=== PATIENT | male | born 1960 | race African-American/Black ===

== ENCOUNTER → 2021-06-20 | Outpatient (CLI) | payer MEDICARE ==
--- NOTE | 2021-06-23 04:34 | MR ---
EXAMINATION TYPE: MR brain wo/w con DATE OF EXAM: 06/20/2021 COMPARISON: Outside MRI February 17, 2021. Outside brain CT February 22, 2021. HISTORY: Secondary malignant neoplasm of brain TECHNIQUE: Multiplanar, multisequence images of the brain and brainstem is performed without and with IV contras t, utilizing 7 mL intravenous Gadavist . FINDINGS: Diffusion weighted images demonstrate no evidence of a recent infarct or other diffusion ab normality. Right frontal craniotomy changes with 1.8 cm surgical resection cavity showing rim enhance ment axial image 58 is now present. There is adjacent mild to moderate curvilinear dural enhancement. There is old infarct inferior posterior to this involving the right frontal and parietal lobes exten ding into the superior temporal lobe with volume loss and increased T2 signal. Ventricles and sulci o verall more prominent from prior MRI. Occasional additional foci of T2 hyperintensity are now present . Midline structures demonstrate normal morphology. The craniocervical junction appears within normal limits. Post contrast images demonstrate no new enhancing masses. There is increased T1 and T2 signa l with incomplete filling of the draining right sagittal and transverse sinus consistent with partial dural venous thrombosis. The globes are intact bilaterally. Completely opacified right maxillary and frontal sinus are now present. IMPRESSION: 1. Successful surgical resection of the right frontal neoplasm. There is surgical resection cavity an d encephalomalacia right frontal parietal region extending into the superior temporal lobe after andres tment. 2. New right-sided dural venous thrombosis. 3. New right-sided paranasal sinus disease. 4. Mild diffuse cerebral atrophy and chronic small vessel ischemic change.
== END | disposition home or self-care (01) ==
LOC: RADMRIMAIN 14:51
PROVIDERS: ATTEND Radiology Radiation Oncology
DX: C79.31 Secondary malignant neoplasm of brain (principal); G93.89 Other specified disorders of brain; I67.82 Cerebral ischemia; G08 Intracranial and intraspinal phlebitis and thrombophlebitis
CPT/HCPCS: 70553; A9585

== ENCOUNTER 2021-11-25 09:35 | Inpatient (IN) | payer MEDICARE ==
[2021-11-25] MEDS ORDERED: KETOROLAC 15 MG/ML 1 ML VIAL IM STA (10:09)
[2021-11-25 10:57] LABS: Basophils % (A) 0 %; Eosinophils # (A) 0.1 k/uL (0-0.7); Eosinophils % (A) 1 %; HCT 54.2 % (39.0-53.0); HGB 17.3 gm/dL (13.0-17.5); Lymphocytes # (A) 0.7 k/uL (1.0-4.8); Lymphocytes % (A) 8 %; MCH 26.4 pg (25.0-35.0); MCV 82.3 fL (80.0-100.0); Mean Platelet Volume 7.6; Monocytes # (A) 0.3 k/uL (0-1.0); Monocytes % (A) 3 %; Neutrophils # (A) 7.8 k/uL (1.3-7.7); Neutrophils % (A) 87 %; Platelet Count 350 k/uL (150-450); RBC 6.58 m/uL (4.30-5.90); RDW 14.4 % (11.5-15.5)
--- NOTE | 2021-11-25 11:06 | ED ---
Fall HPI - General Chief Complaint: Fall Stated Complaint: fall, rt sided pain Time Seen by Provider: 11/25/21 10:00 Source: patient, family, RN notes reviewed Mode of arrival: wheelchair - History of Present Illness Initial Comments: This is a 61-year-old male who presents to the emergency department after a fall. Last night he tripped and fell, landing on his right side, which has caused pain to the lateral right shoulder and posterior aspect of the right shoulder. Denies hitting his head or any loss of consciousness. He did not have any dizziness, chest pain, or shortness of breath prior to the fall. He is currently being treated for colon cancer, prostate cancer, and brain cancer, with concern that there might be metastases to the lungs and spine. He also reports that over the last week, he has had progressive weakness and loss of feeling in his bilateral lower extremities. Denies any associated pain in the legs or spine. States that the leg weakness prompted the fall. He does live in an upstairs apartment by himself and is having a lot of difficulty caring for himself due to the leg weakness. 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 Fall Occurred: home Loss of Consciousness: none Symptoms Prior to Fall: none Location - Extremities: Right: Shoulder - Related Data Home Medications Medication Instructions Recorded Confirmed HYDROcodone/APAP 10-325MG [[place] 1 tab PO TID PRN 11/25/21 11/25/21 10-325] Ondansetron [Zofran] 8 mg PO Q8H PRN 11/25/21 11/25/21 Pravastatin Sodium [Pravachol] 80 mg PO DAILY 11/25/21 11/25/21 Prochlorperazine [Compazine] 10 mg PO Q6H PRN 11/25/21 11/25/21 RX: dexAMETHasone See Taper PO DIRECTED 11/25/21 11/25/21 Rivaroxaban [Xarelto] 20 mg PO DAILY@1400 11/25/21 11/25/21 amLODIPine BESYLATE/BENAZEPRIL 1 cap PO DAILY 11/25/21 11/25/21 [Lotrel 2.5-10 MG] traZODone HCL [Desyrel] 100 mg PO HS 11/25/21 11/25/21 Allergies Allergy/AdvReac Type Severity Reaction Status Date / Time No Known Allergies Allergy Verified 11/25/21 12:20 Review of Systems ROS Statement: Those systems with pertinent positive or pertinent negative responses have been documented in the HPI. ROS Other: All systems not noted in ROS Statement are negative. Constitutional: Denies: fever, chills ENT: Denies: ear pain, throat pain Respiratory: Denies: cough, dyspnea Cardiovascular: Denies: chest pain, palpitations Gastrointestinal: Denies: abdominal pain, nausea, vomiting, diarrhea Genitourinary: Denies: urgency, dysuria Musculoskeletal: Reports: other (right shoulder pain, bilateral leg weakness) Skin: Denies: rash Neurological: Denies: headache Past Medical History Past Medical History: Cancer, CVA/TIA, Hyperlipidemia, Hypertension, Prostate Disorder Additional Past Medical History / Comment(s): colon cancer, prostate cancer, brain cancer History of Any Multi-Drug Resistant Organisms: None Reported Past Surgical History: Bowel Resection Additional Past Surgical History / Comment(s): colon surgery, brain surgery Past Psychological History: No Psychological Hx Reported Smoking Status: Never smoker Past Alcohol Use History: None Reported Past Drug Use History: None Reported - Past Family History Father Family Medical History: Cancer Additional Family Medical History / Comment(s): Pancreatic cancer. Mother Additional Family Medical History / Comment(s): Mother was a heavy smokier and had breathing problems. General Exam Limitations: no limitations General appearance: alert, in no apparent distress Head exam: Present: atraumatic, normocephalic, normal inspection Respiratory exam: Present: normal lung sounds bilaterally. Absent: respiratory distress, wheezes, rales, rhonchi, stridor Cardiovascular Exam: Present: regular rate, normal rhythm, normal heart sounds. Absent: systolic murmur, diastolic murmur, rubs, gallop, clicks Right Shoulder Exam: Present: tenderness (laterally and posteriorly). Absent: swelling, abrasion, ecchymosis, deformity, crepitus Back exam: Present: normal inspection. Absent: tenderness Neurological exam: Present: alert, oriented X3, CN II-XII intact Psychiatric exam: Present: normal affect, normal mood Skin exam: Present: warm, dry, intact, normal color. Absent: rash Course Vital Signs 11/25/21 11/25/21 09:44 15:08 Temperature 97.9 F Pulse Rate 109 H 75 Respiratory 20 18 Rate Blood Pressure 117/84 125/80 O2 Sat by Pulse 98 98 Oximetry Medical Decision Making - Medical Decision Making This is a 61-year-old male who presents to the emergency department for right arm pain after a fall and bilateral leg weakness. X-ray of the arm revealed no acute bony abnormalities, however it did demonstrate [address] of the lumbar spine obtained given the leg weakness. This identified a significant amount of degenerative changes, however it did not identify any masses. It could not definitively rule out any spinal cord, cauda equina, or conus medull stu lesions. Patient expresses interest in jail placement for rehabilitation. Given that the patient cannot easily ambulate, he cannot care for himself, and lives alone, will plan to admit the patient for jail placement. I spoke with Dr. Singh, the patient's radiation oncologist. He said that the patient was supposed to see him on an outpatient basis today. He also states that he has a previously identified lesion in the t-spine, and states that this may be a contributing factor to his symptoms. He requested a computed tomography scan of the T-spine. Patient has already had contrast today, and this will be obtained without contrast in the meantime. This may be repeated with contrast as soon as tomorrow. This case was discussed in detail with the attending ED physician. Presentation, findings, and treatment plan discussed in detail as well. - Lab Data Result diagrams: 11/25/21 10:33 11/25/21 10:33 Lab Results 11/25/21 11/25/21 11/25/21 Range/Units 10:33 10:33 10:33 WBC 9.0 (3.8-10.6) k/uL RBC 6.58 H (4.30-5.90) m/uL Hgb 17.3 (13.0-17.5) gm/dL Hct 54.2 H (39.0-53.0) % MCV 82.3 (80.0-100.0) fL MCH 26.4 (25.0-35.0) pg MCHC 32.0 (31.0-37.0) g/dL RDW 14.4 (11.5-15.5) % Plt Count 350 (150-450) k/uL MPV 7.6 Neutrophils % 87 % Lymphocytes % 8 % Monocytes % 3 % Eosinophils % 1 % Basophils % 0 % Neutrophils # 7.8 H (1.3-7.7) k/uL Lymphocytes # 0.7 L (1.0-4.8) k/uL Monocytes # 0.3 (0-1.0) k/uL Eosinophils # 0.1 (0-0.7) k/uL Basophils # 0.0 (0-0.2) k/uL Sodium 140 (137-145) mmol/L Potassium 4.9 (3.5-5.1) mmol/L Chloride 104 (98-107) mmol/L Carbon Dioxide 26 (22-30) mmol/L Anion Gap 10 mmol/L BUN 20 (9-20) mg/dL Creatinine 1.21 (0.66-1.25) mg/dL Est GFR (CKD-EPI)AfAm 75 (>60 ml/min/1.73 sqM) Est GFR (CKD-EPI)NonAf 64 (>60 ml/min/1.73 sqM) Glucose 106 H (74-99) mg/dL Calcium 10.1 (8.4-10.2) mg/dL Total Bilirubin 0.8 (0.2-1.3) mg/dL AST 20 (17-59) U/L ALT 12 (4-49) U/L Alkaline Phosphatase 99 (38-126) U/L Total Protein 7.9 (6.3-8.2) g/dL Albumin 4.5 (3.5-5.0) g/dL Urine Color Yellow Urine Appearance Clear (Clear) Urine pH 5.5 (5.0-8.0) Ur Specific [place] >1.050 H (1.001-1.035) Urine Protein Negative (Negative) Urine Glucose (UA) Negative (Negative) Urine Ketones Trace H (Negative) Urine Blood Trace H (Negative) Urine Nitrite Negative (Negative) Urine Bilirubin Negative (Negative) Urine Urobilinogen 2.0 (<2.0) mg/dL Ur Leukocyte Esterase Negative (Negative) Urine RBC 2 (0-5) /hpf Urine WBC <1 (0-5) /hpf Urine Mucus Few H (None) /hpf - Radiology Data Radiology results: report reviewed, image reviewed Disposition Clinical Impression: Lower extremity weakness Disposition: ADMITTED IP TO THIS HOSP
--- NOTE | 2021-11-25 11:15 | XR ---
Right shoulder HISTORY: Trauma and pain 3 views the right shoulder Bone mineralization, joint spaces and alignment are maintained, some spurring present at the glenohum eral joint. There is a lung nodule in the right upper lobe measuring approximately 10 mm IMPRESSION: No fracture or dislocation. Indeterminate right upper lobe lung nodule, follow-up is earnest mmended on a nonemergent basis, report relayed to Dr. Aguilera at the time of interpretation.
[2021-11-25 11:18] LABS: Albumin 4.5 g/dL (3.5-5.0); Calcium 10.1 mg/dL (8.4-10.2); Potassium 4.9 mmol/L (3.5-5.1); Total Bilirubin 0.8 mg/dL (0.2-1.3); Total Protein 7.9 g/dL (6.3-8.2)
--- NOTE | 2021-11-25 11:32 | XR ---
Thoracic spine HISTORY: Trauma and pain 3 views of the thoracic spine No comparisons There is abnormal density in the left upper lobe. Abnormal attenuation also present along the right u pper lobe medially along the distribution of the first rib anteriorly. Loop recorder is present over the left heart. There is a slight spinal curvature. Thoracic vertebral bodies show preserved height a nd mineralization. Disc spaces are maintained, there is mild spondylosis. IMPRESSION: Possible left upper lobe atelectasis versus mass, indeterminate density along the anterio r first rib on the right. Consider chest CT. There is a slight spinal curvature. Report relayed to Reginaldo foote at the time of interpretation.
--- NOTE | 2021-11-25 12:45 | CT ---
EXAMINATION TYPE: CT lumbar spine w con DATE OF EXAM: 11/25/2021 COMPARISON: None available HISTORY: Progressive leg weakness, metastatic colon cancer. CT DLP: 568.3 mGycm Automated exposure control for dose reduction was used. CONTRAST: CT scan of the lumbar is performed with IV Contrast, patient injected with 100 mL of Isovue 300. Technique: Enhanced CT of the lumbar spine was performed. Bone and soft tissue window settings are s ubmitted as well as coronal and sagittal reconstructions. Findings: Preserved lumbar curvature. No significant anterolisthesis or retrolisthesis. No definite vertebral b refugio collapse or acute displaced fracture. No gross lytic or sclerotic bone lesion. Degenerative changes of the lumbar spine with multilevel opposing endplate osteophytosis and multilev el facet osteoarthropathy. Rather maintained intervertebral disc heights. L1-L2: Bilateral focal foraminal disc protrusions, causing no significant central spinal canal stenos is or significant neuroforaminal stenosis. L2-L3: Left focal foraminal and extraforaminal disc protrusion, causing no significant central spinal canal stenosis and mild left neuroforaminal stenosis. L3-L4: Diffuse posterior disc bulge, more inclined to the right side, causing moderate central spinal canal stenosis and moderate to severe bilateral neuroforaminal stenosis. L4-L5: Diffuse posterior disc bulge, causing mild central spinal canal stenosis, mild right and moder ate left neural foraminal stenosis. L5-S1: No significant disc disease, central spinal canal stenosis or neuroforaminal stenosis. Simple right renal cyst. Slightly prominent right renal collecting system. Hepatic lesions, not compl etely included in the scan. No paraspinal lesion. IMPRESSION: No definite lumbar vertebral fracture, gross lytic or sclerotic bone lesion. Multilevel lumbar DDD as detailed above, please correlate clinically. Spinal cord, cauda equina or conus medullaris lesion cannot be excluded by this CT scan. Further MRI assessment can be considered. Other incidental findings as described above.
[2021-11-25] MEDS ORDERED: ONDANSETRON 4 MG/2 ML VIAL IVP PRN (13:01)
[2021-11-25] MEDS ORDERED: LORazepam 0.5 MG TAB PO PRN (13:01)
[2021-11-25] MEDS ORDERED: KETOROLAC 15 MG/ML 1 ML VIAL IVP PRN (13:01)
[2021-11-25] MEDS ORDERED: NALOXONE 0.4 MG/ML 1 ML VIAL IV PRN (13:01)
[2021-11-25] MEDS ORDERED: ACETAMINOPHEN TAB 325 MG TAB PO PRN (13:01)
[2021-11-25] MEDS ORDERED: IBUPROFEN 600 MG TAB PO PRN (13:06)
[2021-11-25] MEDS ORDERED: RX INFO: IV CONTRAST WAS GIVEN 1 EACH MISC MISCELLANE PRN (15:22)
[2021-11-25 15:25] LABS: Appearance,Urine Clear (Clear); Bilirubin,Urine Negative (Negative); Blood,Urine Trace (Negative); Color,Urine Yellow; Glucose,Urine (UA) Negative (Negative); Ketones,Urine Trace (Negative); Leukocyte Esterase,Urine Negative (Negative); Mucus,Urine Few /hpf; Nitrite,Urine Negative (Negative); PH, Urine 5.5 (5.0-8.0); Protein,Urine Negative (Negative); RBC,Urine 2 /hpf (0-5); WBC,Urine <1 /hpf (0-5)
[2021-11-25 15:29] LABS: Specific Gravity,Urine >1.050 (1.001-1.035)
[2021-11-25] MEDS ORDERED: PROCHLORPERAZINE 10 MG TAB PO PRN (15:48)
--- NOTE | 2021-11-25 15:55 | CT ---
EXAMINATION TYPE: CT thoracic spine wo con DATE OF EXAM: 11/25/2021 COMPARISON: X-ray dated 11/25/2021 HISTORY: Bilateral leg weakness. CT DLP: 661.7 mGycm Automated exposure control for dose reduction was used. TECHNIQUE: Multiplanar CT scan of the thoracic spine without IV contrast administration. FINDINGS: Large soft tissue mass centered over the right side of T5 vertebra with bone destruction and extraoss eous soft tissue comportment, likely representing metastasis, measuring 4.1 x 5.4 cm. It causes bone destruction of the adjacent portion of the right fifth with obvious involvement of the spinal canal a t that level, likely causing severe spinal canal stenosis and thoracic spinal cord compression. There is complete destruction of the posterior aspect of the T5 vertebral body, right pedicle, right arturo a, right transverse process and portion of the posterior ligaments. A sclerotic lesion is seen involving the most anterior aspect of the left third rib. No other definit e osseous lesion identified by this nonenhanced CT scan. Degenerative changes of the thoracic spine. No significant anterolisthesis or retrolisthesis. No other significant spinal canal stenosis identifi ed. Right T4-5 and right T5-6 neural foraminal stenosis by the described metastatic lesion. No signif icant thoracic disc disease. No other significant neuroforaminal stenosis. Large left apical lung mass measuring up to 8.7 cm. Irregular lesion with traction bronchiectasis see n in the right lung apex with multiple scattered pulmonary nodules, for example 2.3 nodule in the lef t upper lobe/lingula and 1.3 cm at the medial aspect of the right upper lobe. Small left pleural effu wilber. Multiple hepatic hypodensities likely representing hepatic lesions. Scattered arterial atherosc lerotic calcifications. IMPRESSION: Large osseous lesion involving the right side of T5 vertebra and the adjacent portion of the right fi fth rib, causing significant spinal canal stenosis and likely spinal canal compression as well as adj acent right neuroforaminal stenosis as detailed above, likely metastatic. Recommend correlation with bone scan results and further MRI assessment. Multiple bilateral pulmonary lesions and hepatic lesion s likely metastatic. Other findings as detailed above.
[2021-11-25] MEDS: HEPARIN SODIUM,PORCINE/PF 5,000 UNIT/0.5 ML SYRINGE SQ SCH (15:59)
--- NOTE | 2021-11-25 16:27 | P.CNPUL ---
History of Present Illness Consult date: 11/25/21 Reason for consult: dyspnea, abnormal CXR/CT Chief complaint: Lower extremity weakness History of present illness: Patient is a 61-year-old male with the primary is history of colon cancer came into the hospital with lower extremity weakness which has been going on for 1 week patient has been walking with the help of walker unable to stand by himself, he feels that he is more weak on the right leg compared to left leg, patient also tripped and fell down yesterday with some pain on the right lateral shoulder, patient denies any loss of consciousness or hemiparesis, denies any dizziness denies any chest pain no fever or chills patient sees Dr. Drew and Dr. Singh he is being treated with colon cancer prostate cancer and brain cancer he has some metastases in the lung and spine, computed tomography scan of the thoracic vertebra positive for large osseous lesion right side of the T5 vertebra and adjacent portion of the right fifth rib which was causing significant canal stenosis and likely spinal cord compression. In addition large left apical lung mass measuring about 8.77 cm also noted some irregular lesion of 2.3 cm also identified some bronchiectasis and right upper lobe 1.3 cm nodule noted. Patient denies any hemoptysis. Review of Systems All systems: negative Past Medical History Past Medical History: Cancer, CVA/TIA, Hyperlipidemia, Hypertension, Prostate Disorder Additional Past Medical History / Comment(s): colon cancer, prostate cancer, brain cancer History of Any Multi-Drug Resistant Organisms: None Reported Past Surgical History: Bowel Resection Additional Past Surgical History / Comment(s): colon surgery, brain surgery Past Anesthesia/Blood Transfusion Reactions: Postoperative Nausea & Vomiting (PONV) Additional Past Anesthesia/Blood Transfusion Reaction / Comment(s): Slow to wake Past Psychological History: No Psychological Hx Reported Smoking Status: Never smoker Past Alcohol Use History: None Reported Past Drug Use History: None Reported - Past Family History Father Family Medical History: Cancer Additional Family Medical History / Comment(s): Pancreatic cancer. Mother Additional Family Medical History / Comment(s): Mother was a heavy smokier and had breathing problems. Medications and Allergies Home Medications Medication Instructions Recorded Confirmed Type HYDROcodone/APAP 10-325MG [[place] 1 tab PO TID PRN 11/25/21 11/25/21 History 10-325] Ondansetron [Zofran] 8 mg PO Q8H PRN 11/25/21 11/25/21 History Pravastatin Sodium [Pravachol] 80 mg PO DAILY 11/25/21 11/25/21 History Prochlorperazine [Compazine] 10 mg PO Q6H PRN 11/25/21 11/25/21 History Rivaroxaban [Xarelto] 20 mg PO DAILY@1400 11/25/21 11/25/21 History amLODIPine BESYLATE/BENAZEPRIL 1 cap PO DAILY 11/25/21 11/25/21 History [Lotrel 2.5-10 MG] dexAMETHasone See Taper PO DIRECTED 11/25/21 11/25/21 History traZODone HCL [Desyrel] 100 mg PO HS 11/25/21 11/25/21 History Allergies Allergy/AdvReac Type Severity Reaction Status Date / Time No Known Allergies Allergy Verified 11/25/21 12:20 Physical Exam Vitals: Vital Signs Temp Pulse Pulse Resp BP BP Pulse Ox 11/25/21 15:58 98.1 F 74 18 121/77 97 11/25/21 15:08 75 18 125/80 98 11/25/21 09:44 97.9 F 109 H 20 117/84 98 Intake and Output 11/25/21 11/25/21 11/25/21 06:59 14:59 22:59 Other: Voiding Method Urinal Weight 68.946 kg 68.946 kg - Constitutional General appearance: average body habitus, cooperative, disheveled - EENT Eyes: EOMI, PERRLA ENT: normal oropharynx Ears: bilateral: normal - Neck Carotids: bilateral: upstroke normal Thyroid: bilateral: normal size - Respiratory Respiratory: bilateral: CTA - Cardiovascular Rhythm: regular Heart sounds: normal: S1, S2 - Gastrointestinal General gastrointestinal: soft - Integumentary Integumentary: normal turgor - Neurologic Neurologic: CNII-XII intact - Musculoskeletal Musculoskeletal: generalized weakness, right sided weakness - Psychiatric Psychiatric: A&O x's 3, appropriate affect, intact judgment & insight Results - Laboratory Findings CBC and BMP: 11/25/21 10:33 11/25/21 10:33 Abnormal lab findings: Abnormal Labs 11/25/21 11/25/21 11/25/21 10:33 10:33 10:33 RBC 6.58 H Hct 54.2 H Neutrophils # 7.8 H Lymphocytes # 0.7 L Glucose 106 H Ur Specific [place] >1.050 H Urine Ketones Trace H Urine Blood Trace H Urine Mucus Few H - Diagnostic Findings Chest x-ray: report reviewed, image reviewed Assessment and Plan Assessment: Lung mass, Large left-sided 8.7 cm mass along with multiple sclerotic pulmonary nodules seen in the right apex as well 1.3 cm nodule in right upper lobe, 2.3 cm nodule in left upper lobe and lingular area T5 vertebral mass of about 5.44.1 cm causing cord compression Lower extremity weakness more so on the right side compared to left side Status post fall COPD History of prostate: And brain cancer with metastases Plan: Radiation oncology has been consulted, will defer radiation therapy to the expertise of Oncology Will discuss with oncology about pulmonary diagnosis of lung mass likely can be evaluated on outpatient basis Physical therapy and rehab evaluation opted for radiation therapy We'll follow closely further recommendations pending plan of care as per clinical response of the patient Time with Patient: Greater than 30
[2021-11-25] MEDS ORDERED: DEXAMETHASONE SOD PHOSPHATE 10 MG/ML 1 ML VIAL IV STA (18:43)
[2021-11-25] MEDS ORDERED: DEXAMETHASONE SOD PHOSPHATE 10 MG/ML 1 ML VIAL IV PRN (18:43)
--- NOTE | 2021-11-25 19:44 | P.PN ---
Progress Note - Text Progress Note Date: 11/25/[address] of T spine shows lesion of T5 that is destructive lytic in nature on the LHS causing near complete destruction of the rib head, TVP and posterior body. There is a large ST component that cannot be quantified and will be seen better on MRI. There is likely severe compression of the cord at this level due to the tumor mass. Will start decadron and obtain stat MRI of T and L spine. WIll tentatively board for tomorrow for T2-T8 decompresison and stabilization with tumor resection. NPO @ [place].
--- NOTE | 2021-11-25 20:19 | HP ---
HISTORY AND PHYSICAL This 61-year-old white male came to the hospital after he tripped and fell, landing on his right side. He has pain in his lateral right shoulder and posterior aspect of the right shoulder. He hit his head or loss of consciousness, did not have any chest pain or shortness of breath. He is currently being treated for colon cancer, prostate cancer, brain cancer, possibly metastasis to C-spine. He is unable to take care of himself at home. He was admitted for progressive weakness and rehab placement at the skilled nursing. Home medicines: Please see list. These were reviewed. ALLERGIES NEGATIVE. FOURTEEN-POINT REVIEW OF SYSTEMS: Falls, weakness, lightheadedness, dizziness, shoulder pain, leg weakness; otherwise negative. PAST MEDICAL HISTORY: Cancer, CVA, TIA, dyslipidemia, hypertension, prostate disorder, colon cancer, prostate cancer, brain cancer, bowel resections, surgery, brain surgery. PHYSICAL EXAMINATION: Blood pressure is 117/84, temperature 97.9, pulse 109, respiratory rate 18 to 20, O2 98. He is alert. No apparent distress. Head normocephalic, atraumatic. Lungs clear. Cardiovascular: S1, S2. Right shoulder is tender laterally and posteriorly. Back is normal to inspection. Neurologic: Cranial nerves are intact. Psych fair mood and affect. Integument: Dry skin. Dry skin turgor. X-ray of the arm negative for fracture; shows [address] of the lumbar spine identified significant degenerative disc disease. No masses or spinal cord lesions. Wants skilled nursing placement. He is unable to ambulate, take care of himself. He is falling and has had generalized weakness. He has a BUN of 17, creatinine 54. White count 9. Sodium 140, potassium 4.9, BUN is 20, creatinine 1.21. ASSESSMENT: 1. Generalized debility. 2. Right arm pain. 3. Fall. 4. Bilateral leg weakness. 5. Generalized weakness, falls. 6. Dehydration. 7. Metastatic cancer to the colon. Will get skilled nursing placement. Consult Dr. Barnard. Prognosis guarded. Rehydrate. Check multiple x-rays and CT scans. MMODL / IJN: [id number] /
[2021-11-25] MEDS: traZODone HCL 100 MG TAB PO SCH (20:27)
[2021-11-25] MEDS: DOCUSATE 100 MG CAP PO SCH (20:27)
--- NOTE | 2021-11-25 22:26 | P.CONS ---
History of Present Illness - Reason for Consult Consult date: 11/25/21 Cord compression, met colon ca - History of Present Illness This is a 61 yr old AA patient, of Dr Hamlin, admitted with LE weakness starting about a wk ago. The pt states he noted his legs to be " wobbly", leading him to get a cane. The symptoms progressed, leading to a fall, due to his legs giving out. He denied loss of sensation in his LE, bowels or bladder. He had spine Xrays and CT scans done showing a 5.4 cm mass right of the spine, causing probable cord compression at T5. He was thus admitted, and consult plac ed. 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 In the interval,he also received XRT to lung nodules on multiple occasion and oral xeloda. In February/2021,he developed right frontal lobe brain lesion,was resected and then underwent radiation therapy. Repeat brain MRI on 09/18/2021 showed peripheral enhancement in resected right frontal obe lesion and smaller new right frontal lesion and thrombus in right transverse sinus. He had repeat CT scan of xhest/abdomen/pelvis on 10/15/2021 which revealed interval increase in left lung mass, additional new PEPE nodules and multiple additional nodules in right lung and hypodense lesion in the liver concerning for metastatic disease. There is no records about biomarker testing that were done. The above treatment was done at [facility] (Dr Owens and Dr Vernon). He moved to [place] and came to see Dr Hamlin to establish care closer to home Per OV note on 11/12/21 - "He feels tired but relatively active,has some lightheadness,no nausea or vomiting,he stated his appetite is better,gaining some weight,normal bowel movement,no melena or hematochezia,he has some headaches and right chest wall pain,uses norco 2-3 times /day.He is currently on xarelto and tolerating it well." The pt was referred to Rad Onc for brain Rt, with a plan to start FOLFIRI post RT. Biomarker testing was also ordered Review of Systems Constitutional: Reports chronic pain, Reports fatigue Eyes: denies blurred vision, denies pain Ears: deny: decreased hearing, ear discharge, earache, tinnitus Ears, nose, mouth and throat: Denies headache, Denies sore throat Cardiovascular: Reports decreased exercise tolerance Respiratory: Denies cough Gastrointestinal: Reports as per HPI, Reports constipation Genitourinary: Reports as per HPI Musculoskeletal: Reports as per HPI, Reports gait dysfunction, Reports muscle weakness Integumentary: Denies pruritus, Denies rash Neurological: Reports motor disturbance, Reports weakness Psychiatric: Denies anxiety, Denies depression Endocrine: Reports fatigue, Reports weight change Hematologic/Lymphatic: Reports as per HPI Past Medical History Past Medical History: Cancer, CVA/TIA, Hyperlipidemia, Hypertension, Prostate Disorder Additional Past Medical History / Comment(s): colon cancer, prostate cancer, brain cancer History of Any Multi-Drug Resistant Organisms: None Reported Past Surgical History: Bowel Resection Additional Past Surgical History / Comment(s): colon surgery, brain surgery Past Anesthesia/Blood Transfusion Reactions: Postoperative Nausea & Vomiting (PONV) Additional Past Anesthesia/Blood Transfusion Reaction / Comm: Slow to wake Past Psychological History: No Psychological Hx Reported Smoking Status: Never smoker Past Alcohol Use History: None Reported Past Drug Use History: None Reported - Past Family History Father Family Medical History: Cancer Additional Family Medical History / Comment(s): Pancreatic cancer. Mother Additional Family Medical History / Comment(s): Mother was a heavy smokier and had breathing problems. Medications and Allergies Home Medications Medication Instructions Recorded Confirmed Type HYDROcodone/APAP 10-325MG [[place] 1 tab PO TID PRN 11/25/21 11/25/21 History 10-325] Ondansetron [Zofran] 8 mg PO Q8H PRN 11/25/21 11/25/21 History Pravastatin Sodium [Pravachol] 80 mg PO DAILY 11/25/21 11/25/21 History Prochlorperazine [Compazine] 10 mg PO Q6H PRN 11/25/21 11/25/21 History Rivaroxaban [Xarelto] 20 mg PO DAILY@1400 11/25/21 11/25/21 History amLODIPine BESYLATE/BENAZEPRIL 1 cap PO DAILY 11/25/21 11/25/21 History [Lotrel 2.5-10 MG] dexAMETHasone See Taper PO DIRECTED 11/25/21 11/25/21 History traZODone HCL [Desyrel] 100 mg PO HS 11/25/21 11/25/21 History Allergies Allergy/AdvReac Type Severity Reaction Status Date / Time No Known Allergies Allergy Verified 11/25/21 12:20 Physical Exam Vitals: Vital Signs Temp Pulse Pulse Resp BP BP Pulse Ox 11/25/21 20:00 98.0 F 59 L 16 117/75 97 11/25/21 15:58 98.1 F 74 18 121/77 97 11/25/21 15:08 75 18 125/80 98 11/25/21 09:44 97.9 F 109 H 20 117/84 98 Intake and Output 11/25/21 11/25/21 11/25/21 06:59 14:59 22:59 Output Total 300 Balance -300 Output: Urine 300 Other: Voiding Method Urinal Weight 68.946 kg 68.946 kg - Constitutional General appearance: no acute distress - EENT Eyes: EOMI, PERRLA ENT: hearing grossly normal, normal oropharynx - Neck Neck: no lymphadenopathy Thyroid: bilateral: normal size - Respiratory Respiratory: bilateral: CTA - Cardiovascular Rhythm: regular Heart sounds: normal: S1, S2 - Gastrointestinal General gastrointestinal: normal bowel sounds, soft - Integumentary Integumentary: normal - Neurologic Mild patchy numbness RLE medial upper thigh No loss of sensation otherwise, including perineal area Neurologic: CNII-XII intact - Musculoskeletal Musculoskeletal: right sided weakness (RLE prox weakness 2-2+/5) - Psychiatric Psychiatric: A&O x's 3 Results CBC & Chem 7: 11/25/21 10:33 11/25/21 10:33 Labs: Abnormal Lab Results - Last 24 Hours (Table) 11/25/21 11/25/21 11/25/21 Range/Units 10:33 10:33 10:33 RBC 6.58 H (4.30-5.90) m/uL Hct 54.2 H (39.0-53.0) % Neutrophils # 7.8 H (1.3-7.7) k/uL Lymphocytes # 0.7 L (1.0-4.8) k/uL Glucose 106 H (74-99) mg/dL Ur Specific [place] >1.050 H (1.001-1.035) Urine Ketones Trace H (Negative) Urine Blood Trace H (Negative) Urine Mucus Few H (None) /hpf Comments: Xray lumbar and Tspine, CT scans lumbar and T spine reports reviewed Assessment and Plan (1) Cord compression Narrative/Plan: The pt is presenting with impending cord compression at T5, due to progression of his known metastatic colon ca. He does b/l LE weakness, R > L, with sensation mostly maintained at this time. - IV steroids - Rad onc and Ortho spine consult - Results of imaging d/w pt. Possible need for surgical resection as he does have deficit at presentation. Await surgical opinion Current Visit: Yes Status: Acute Code(s): G95.20 - UNSPECIFIED CORD COMPRESSION SNOMED Code(s): 95255752 (2) Stage IV carcinoma of colon Narrative/Plan: Diagnostic and therapeutic circumstances as described. Systemic therapy on hold till acute problem is resolved. He will also need brain RT prior to the same Current Visit: Yes Status: Acute Code(s): C18.9 - MALIGNANT NEOPLASM OF COLON, UNSPECIFIED SNOMED Code(s): 635095246
[2021-11-26] MEDS: HEPARIN SODIUM,PORCINE/PF 5,000 UNIT/0.5 ML SYRINGE SQ SCH ×4 (00:36→23:59)
[2021-11-26] MEDS: DOCUSATE 100 MG CAP PO SCH ×2 (08:12→21:02)
[2021-11-26] MEDS: lisinopriL 10 MG TAB PO SCH (08:14)
[2021-11-26] MEDS: PRAVASTATIN SODIUM 80 MG TAB PO SCH (08:15)
[2021-11-26] MEDS: amLODIPine 2.5 MG TAB PO SCH (08:15)
[2021-11-26 09:31] LABS: Basophils % (A) 0 %; Eosinophils % (A) 0 %; HCT 53.8 % (39.0-53.0); HGB 16.1 gm/dL (13.0-17.5); Hypochromasia Slight; Lymphocytes # (A) 0.9 k/uL (1.0-4.8); Lymphocytes % (A) 14 %; MCH 25.5 pg (25.0-35.0); MCHC 29.9 g/dL (31.0-37.0); MCV 85.3 fL (80.0-100.0); Mean Platelet Volume 8.5; Monocytes # (A) 0.2 k/uL (0-1.0); Monocytes % (A) 3 %; Neutrophils # (A) 5.3 k/uL (1.3-7.7); Neutrophils % (A) 82 %; Platelet Count 327 k/uL (150-450); RBC 6.31 m/uL (4.30-5.90); RDW 14.2 % (11.5-15.5); WBC 6.5 k/uL (3.8-10.6)
[2021-11-26 09:42] LABS: African American GFR (CKD) 81 (>60 ml/min/1.73 sqM); Anion Gap 8 mmol/L; Blood Urea Nitrogen 20 mg/dL (9-20); Calcium 9.6 mg/dL (8.4-10.2); Carbon Dioxide 29 mmol/L (22-30); Chloride 101 mmol/L (98-107); Glucose 127 mg/dL (74-99); Non-African American GFR(CKD) 70 (>60 ml/min/1.73 sqM); Potassium 4.7 mmol/L (3.5-5.1); Sodium 138 mmol/L (137-145)
--- NOTE | 2021-11-26 10:57 | P.CNOR ---
History of Present Illness - [facility] Consult date: 11/26/21 Consult reason: back pain History of present illness: 61 yo male with long history of metestatic colon and prostate carcinoma presented with c/o leg weakness and back pain. Subsequent imaging was done and shows a large lesion in T5 that is likely metestatic focus causing severe cord compression at this level. Pt c/o weakness in his LE that has been progressive over the past week and a half. He states his RLE is worse than his left. He states no bowel or bladder issues at this time. He denies any perineal numbness/tingling. He states back pain between his shoulder blades. Pain radiates around his ribs to his lower chest and upper abdomen. States no true abdominal pain. States no constipation. Denies any recent f/c/sob/cp at this time. Review of Systems 14 point ROS completed and as stated in HPI. All other systems reviewed negative. All systems: negative Constitutional: Reports as per HPI Past Medical History Past Medical History: Cancer, CVA/TIA, Hyperlipidemia, Hypertension, Prostate Disorder Additional Past Medical History / Comment(s): colon cancer, prostate cancer, brain cancer History of Any Multi-Drug Resistant Organisms: None Reported Past Surgical History: Bowel Resection Additional Past Surgical History / Comment(s): colon surgery, brain surgery Past Anesthesia/Blood Transfusion Reactions: Postoperative Nausea & Vomiting (PONV) Additional Past Anesthesia/Blood Transfusion Reaction / Comm: Slow to wake Past Psychological History: No Psychological Hx Reported Smoking Status: Never smoker Past Alcohol Use History: None Reported Past Drug Use History: None Reported - Past Family History Father Family Medical History: Cancer Additional Family Medical History / Comment(s): Pancreatic cancer. Mother Additional Family Medical History / Comment(s): Mother was a heavy smokier and had breathing problems. Medications and Allergies Home Medications Medication Instructions Recorded Confirmed Type HYDROcodone/APAP 10-325MG [[place] 1 tab PO TID PRN 11/25/21 11/25/21 History 10-325] Ondansetron [Zofran] 8 mg PO Q8H PRN 11/25/21 11/25/21 History Pravastatin Sodium [Pravachol] 80 mg PO DAILY 11/25/21 11/25/21 History Prochlorperazine [Compazine] 10 mg PO Q6H PRN 11/25/21 11/25/21 History Rivaroxaban [Xarelto] 20 mg PO DAILY@1400 11/25/21 11/25/21 History amLODIPine BESYLATE/BENAZEPRIL 1 cap PO DAILY 11/25/21 11/25/21 History [Lotrel 2.5-10 MG] dexAMETHasone See Taper PO DIRECTED 11/25/21 11/25/21 History traZODone HCL [Desyrel] 100 mg PO HS 11/25/21 11/25/21 History Allergies Allergy/AdvReac Type Severity Reaction Status Date / Time No Known Allergies Allergy Verified 11/25/21 12:20 Physical Examination Osteopathic Statement: *. No significant issues noted on an osteopathic structural exam other than those noted in the History and Physical/Consult. PHYSICAL EXAMINATION: Vitals: Stable General: Awake, alert, appropriate for age, in no acute distress. Underweight, somewhat cachexic HEENT: No unusual neck masses around region of lateral neck triangle, thyroid, supraclavicular groove. Extremities: Skin warm and dry without no acute lesions, coloration, temperature, skin intact, no tenderness or erythema. Integument: Hairy patches: Absent Dorsal skin dimples: Absent Cafe au lait spots: Absent Surgical incisions: well healed. No back wound. Palpation: Please see Pain drawing on Intake sheet for further detail. (Tenderness = T, Nontender = NT, Swelling = S, Ecchymosis = E) Findings on Midline and paraspinal palpation and percussion: Cervical: NT Thoracic: TTP Lumbar: NT Sacral: NT Special findings: TTP RHS T spine POSTURAL and MUSCULO-SKELETAL EVALUATION: Neck ROM: [Unrestricted in six directions] Lumbar ROM: [Unrestricted in six directions] Shoulder ROM: Symmetric in abduction, ER/IR Hip ROM: Symmetric in abduction, adduction, ER/IR Knee ROM: Symmetric and intact in Flexion / extension Hands: Normal appearing structure L and R Feet: Normal appearing structure L and R VASCULAR STATUS : Wrist Pulses: [2/4 bilateral radial and ulnar] Pedal Pulses: [2/4 bilateral DP and PT] Color: [Normal] Edema: [None] NEUROLOGIC EXAMINATION: Mental Status: Awake and alert, fully oriented, with normal attention, concentration and memory, and fluent, appropriate speech. Cranial Nerves: I: Olfactory not tested. II: Visual acuity normal, no visual field deficit noted with confrontation. III,IV: Normal pupillary reflexes & intact extraocular movements without nystagmus. V,: Intact symmetrical facial sensation. VII: Intact symmetrical facial motor movement VIII: Hearing intact. IX,X: Intact gag, swallow, & normal voice. XI: Sternocleidomastoid, trapezius function intact. XII: Tongue midline with normal movements. Motor Exam (0-5/5, N/T) STRENGTH UPPER EXTREMITY Shoulder Abd (Not part of FAVIOLA Motor score): RIGHT [5] LEFT [5] Elbow Flexors: RIGHT [5] LEFT [5] Elbow Extensor: RIGHT [5] LEFT [5] Wrrist Dorsiflexors: RIGHT [5] LEFT [5] Finger Abductor: RIGHT [5] LEFT [5] Pin Drafting Machine Tender: RIGHT [5] LEFT [5] LOWER EXTREMITY Hip Flexor (Not part of FAVIOLA Motor Score): RIGHT [3] LEFT [4] Knee Flexor: RIGHT [3] LEFT [4] Knee Extensor: RIGHT [3] LEFT [4] Ankle Dorsiflexion: RIGHT [3] LEFT [4] Ankle Plantarflexion: RIGHT [3] LEFT [4] EHL: RIGHT [3] LEFT [4] FHL: RIGHT [3] LEFT [4] REFLEXES Biecp: RIGHT [2] LEFT [2] Tricep: RIGHT [2] LEFT [2] Brachioradialis: RIGHT [2] LEFT [2] Patellar: RIGHT [1] LEFT [2] Achilles: RIGHT [1] LEFT [2] Pathological Reflexes Streeter's: RIGHT [Absent] LEFT [Absent] Babinski: RIGHT [Absent] LEFT [Absent] Clonus: RIGHT [None] LEFT [None] SENSORY Joint Position: [Intact bilaterally] Vibration [Intact bilaterally] Pain and LT sense [Intact C5-T1 and L2-S1] Dermatomal deficit [None] Gait and Functional Evaluation: Ambulatory aids: Wheelchair progressed from cane to walker now wheelchair as he cannot walk under his own strength Results CT and MRI are reviewed. CT shows large destructive lytic lesion on the RHS of T5 causing destruction of the VB, TVP, CVJ, pedicle and posterior elements of T5. MRI shows large soft tissue component to tumor that extends from the T5 vertebral body causing destruction of the posterior elements of T5. The tumor is extradural and extends cranially to the level of T3-4 and caudally to mid T6 region. There is extension anteriorly from the CVJ that is abutting the posterior parietal plura, but there does not appear to be any extension into the lung at this time. There is pending instability of T5 due to the destruction. There is severe compression of the thoracic cord in this area due to tumor burden. - Labs Labs: Abnormal Lab Results - Last 24 Hours (Table) 11/25/21 11/25/21 11/25/21 Range/Units 10:33 10:33 10:33 RBC 6.58 H (4.30-5.90) m/uL Hct 54.2 H (39.0-53.0) % MCHC (31.0-37.0) g/dL Neutrophils # 7.8 H (1.3-7.7) k/uL Lymphocytes # 0.7 L (1.0-4.8) k/uL Glucose 106 H (74-99) mg/dL Ur Specific [place] >1.050 H (1.001-1.035) Urine Ketones Trace H (Negative) Urine Blood Trace H (Negative) Urine Mucus Few H (None) /hpf 11/26/21 11/26/21 Range/Units 06:11 06:11 RBC 6.31 H (4.30-5.90) m/uL Hct 53.8 H (39.0-53.0) % MCHC 29.9 L (31.0-37.0) g/dL Neutrophils # (1.3-7.7) k/uL Lymphocytes # 0.9 L (1.0-4.8) k/uL Glucose 127 H (74-99) mg/dL Ur Specific [place] (1.001-1.035) Urine Ketones (Negative) Urine Blood (Negative) Urine Mucus (None) /hpf H & H 11/25/21 11/26/21 Range/Units 10:33 06:11 Hgb 17.3 16.1 (13.0-17.5) gm/dL Hct 54.2 H 53.8 H (39.0-53.0) % Result Diagrams: 11/26/21 06:11 11/26/21 06:11 Assessment and Plan Assessment: 61 yo male metestatic carcinoma 1. T5 lytic destructive lesion 2. Severe thoracic cord compression 3. LE weakness 4. Multiple medical comorbidities Plan: -Continue decadron -MRI and CT reviewed -Discussed with patient different options surgical and nonsurgical. Due to the nature of his weakness and where the tumor is I would recommend decompression and stabilization with debulking and separation surgery of the T5 region. This would give the patient the best chance for recovery of his LE function and prevention of further damage due to the compression. This is a large surgery however, and would be a large stress on the patient and he understands this. He would like to speak with his girlfriend and family first before making decision s. -Medically he would need to be stable and cleared to undergo procedure. -We tentatively boarded him for tomorrow, however due to OR availability we will likely be scheduling for as this allows for the correct team as well as time in the OR. His neurological status since being in the hospital has been stable. We will continue to monitor closely.
[2021-11-26] MEDS: IOPAMIDOL CONTRAST (ORAL USE) VIAL PO PRN ×2 (11:19→12:21)
--- NOTE | 2021-11-26 11:51 | P.PN ---
Progress Note - Text Progress Note Date: 11/26/21 This is 61 years old male who was admitted to [facility] and is complaining of severe back pain and lower extremity weakness, computed tomography scan of the thoracic spine showed the patient had metastatic colon cancer to the T5 vertebra, with a compression fracture at that level, patient currently on oral pain medication [place] 10/325 every 8 hours and Motrin 600 mg every 8 hours and Tylenol 650 mg every 6 hours, patient was evaluated by spine surgery Dr Montgomery , and he's been evaluated by oncology services, for possible treatment for his thoracic spine metastases and colon cancer, patient is not candidate for interventional pain management, and oncology services already on the case
--- NOTE | 2021-11-26 16:27 | P.PN ---
Progress Note - Text Progress Note Date: 11/26/21 Spoke with pt again and he is now on board with surgery. Dr. Singh from Rad onc available as well and was on board. We will plan on for OR due to availability and optimal timing. We will keep him on decadron. Should he have any deterioration we will revisit and discuss. At this time I am planning on T3-8 stabilization with decompression and separation surgery T4-6 with tumor debulking. Pt agrees. We will continue to discuss further.
[2021-11-26 16:34] VITALS: BMI 22.4
--- NOTE | 2021-11-26 20:03 | MR ---
EXAMINATION TYPE: MR fatou/lsroland wo/w con DATE OF EXAM: 11/26/2021 COMPARISON: CT T-spine and lumbar spine 11/25/2021 HISTORY: Bilateral leg weakness, abnormal CT. TECHNIQUE: Multiplanar, multisequence images of the lumbar spine is performed without and with IV contrast, util izing 7 mL intravenous Gadavist FINDINGS: Redemonstration of T5 vertebral body low T1 intermediate kidneys to signal heterogenous mass. The mas s demonstrates erosive changes to the right vertebral body including the right posterior elements wit h soft tissue component measuring at least 55 x 47 x 45 mm and demonstrates severe spinal canal steno sis along the posterior and right lateral aspect extending from mid T4 vertebral body to the inferior aspect of T5. Soft tissues extends into the erector spinae muscles on the right as well. The tumor t akes up the entirety of the right T4-T5 and to a lesser extent T5-T6 neural foramen. Postcontrast julianne ging demonstrates heterogenous enhancement of this destructive lesion. Additional masses within the thorax are better characterize on CT imaging including the left upper lo be mass. Decreased. And cefotaxime supernumerary. Partially visualized mass within the liver measures at least 19 x 19 mm in the right hepatic lobe and is T2 bright. There is small left pleural effusion . Visualized portions of the lumbar spine demonstrate vertebral bodies with maintained height and a str aightened alignment. No significant spinal canal stenosis. The neural foramen are patent. Bone marrow signal within the lumbar spine is maintained. Scattered endplate spurring is seen throughout the lum bar spine with facet joint arthropathy. Sacroiliac joints visualized portions are grossly unremarkabl e. IMPRESSION: 1. T5 vertebral body mass with osseous erosive changes and large soft tissue component which demonst rates severe spinal canal stenosis at T4-T5 levels and complete effacement of the right T4-T5 and T5- T6 neural neural foramen with tumor. Given history of metastatic cancer this is likely metastatic in etiology. 2. No evidence of significant spinal canal stenosis within the lumbar spine. 3. Left apical pulmonary mass is partially in the field of view and better characterized on prior CT as well as other pulmonary nodules.
--- NOTE | 2021-11-26 20:16 | CT ---
EXAMINATION TYPE: CT ChestAbdPelvis w con DATE OF EXAM: 11/26/2021 COMPARISON: No previous CT chest, abdomen or pelvis is available for comparison. HISTORY: metastatic diease CT DLP: 1103 mGycm Automated exposure control for dose reduction was used. CONTRAST: CT scan of the chest, abdomen and pelvis is performed with Oral Contrast and with IV Contrast, patien t injected with 100 mL of Isovue 300. FINDINGS: LUNGS: Large lesion is in the anterior aspect of the left lung apex measuring 8.6 x 6.3 cm and extend ing for 10.2 cm in craniocaudal dimension. The inferior aspect of the lesion is invading the left ev n pulmonary artery which demonstrates a filling defect within likely representing a tumor thrombus. T he pulmonary artery is patent distally. There is apparent complete occlusion of the left upper lobe p ulmonary artery. Suspected tumoral thrombus is also seen in the left superior pulmonary vein which co uld extend to the left atrium. Other scattered bilateral pulmonary lesions likely metastatic with the largest seen in the left upper lobe/lingula measuring up to 2.2 cm. Right apical pulmonary scarring with traction bronchiectasis which could represent metastasis versus sequela of previous radiation/in tervention. Patent trachea and main bronchi. Small left-sided pleural effusion. MEDIASTINUM: No gross cardiomegaly. The ascending aorta measures 3.3 cm and the pulmonary trunk measu res 2.5 cm. No pericardial effusion. No pathologically enlarged lymph nodes in the chest. OTHER: Large aggressive lesion is seen involving T5 vertebral body and the adjacent portion of the r ight fifth rib, kindly refer to the detailed description in CT scan and MRI of the thoracic spine per formed recently. Lucency in the anterior aspect of the left second rib with sclerotic area in the ant erior aspect of the left third rib, please correlate with bone scan results to rule out metastasis. LIVER/GB: Multiple hepatic focal lesions are seen likely metastatic. For example, a posterior right h epatic lobe lesion measures 4.4 cm. A segment 8 lesion measures 3.6 cm. A left hepatic lobe lesion me asures 13 mm. A medial segment 7 lesion measures 17 mm. Density seen within the gallbladder possibly representing sludge. PANCREAS: No significant abnormality is seen. SPLEEN: No significant abnormality is seen. ADRENALS: No significant abnormality is seen. KIDNEYS: Right upper pole renal cyst without gross suspicious feature, otherwise unremarkable kidneys . No hydroureter or hydronephrosis. Grossly unremarkable urinary bladder. BOWEL: Unremarkable nondistended stomach, duodenum and small bowel. Fecal loading of the rectum and most of the colon. Grossly unremarkable colonic anastomosis in the pelvis. No gross colonic mass silva stuart a small lesion cannot be excluded. Recommend correlation with colonoscopy results. REPRODUCTIVE ORGANS: Prostatic concretion. Unremarkable seminal vesicles. LYMPH NODES: Prominent superior retroperitoneal lymph nodes seen just posterior and inferior to the a drenal glands measuring 10 mm on the right side and 9 mm on the left side, possibly metastatic. No ot her definite metastatic lymph nodes seen in the abdomen or the pelvis. OSSEOUS STRUCTURES: No gross aggressive lumbar spine or pelvic bone lesion. OTHER: Arterial atherosclerotic calcification and atheromatous plaques. Severe stenosis of the origin of the celiac trunk yet patent distally. No sizable ascites. Right lateral abdominal wall lipoma kyle suring up to 9.6 cm, please correlate clinically. IMPRESSION: Large left upper lung mass extending to the left pulmonary artery and left superior pulmonary vein wh ich could represent metastatic disease versus primary lung cancer. Other metastatic lesions seen in t he lungs, thoracic spine, possibly left upper ribs and liver as described above. Suspected superior r etroperitoneal metastatic nodules/lymph nodes. Further PET/CT scan assessment and tissue diagnosis ca n be considered. Other findings as described above.
[2021-11-26] MEDS: traZODone HCL 100 MG TAB PO SCH (21:02)
--- NOTE | 2021-11-27 07:55 | P.CONS ---
History of Present Illness - Reason for Consult Consult date: 11/26/21 back pain, cord compression Requesting physician: Zach Barnard - Chief Complaint leg weakness, fall - History of Present Illness The patient is a 61-year-old male with a history of metastatic adenocarcinoma the sigmoid colon, initially treated with surgical resection followed by FOLFOX in 2012. He has been treated with SBRT under the care of Dr. Vernon for several pulmonary metastases from 2015 through 2018. In April 2021, the patient underwent radiotherapy to a right frontal brain metastasis which had been previously surgically resected. He subsequently required more recent radiotherapy to a second right frontal brain metastasis performed on November 06, 2021 under the care of Dr. Vernon. He recently moved to [place] and transferred his care to Dr. Hamlin in medical oncology. He recently developed difficulty with ambulation and increasing pain in the upper right back. Imaging is consistent with spinal cord compression at T5. The patient reports that over the past week he has noticed further increase in lower extremity weakness. He reports having a fall at home, and presented to the hospital. He was having continued pain in the right upper back which radiates under the axilla. He has had no difficulty with loss of urinary control. He does admit to intermittent difficulty with constipation, but this is largely unchanged. Upon admission to the hospital, a CT of the thoracic and lumbar spine was performed on November 25. These studies revealed a large right paraspinal soft tissue mass at the level of T5 invading the spinal canal with likely cord compression. A large left apical lung mass was also visualized. The L-spine was largely unremarkable. The patient was subsequent he started on 6 mg dexamethasone 4 times a day, and has been evaluated by orthopedic spine surgery and oncology MRI done this AM pending. Review of Systems Constitutional: Denies chills, Denies fever Eyes: denies blurred vision Ears, nose, mouth and throat: Denies headache Cardiovascular: Denies chest pain Respiratory: Denies congestion, Denies cough Gastrointestinal: Reports constipation, Denies abdominal pain, Denies bloating Musculoskeletal: Reports as per HPI Integumentary: Denies rash Neurological: Denies aphasia, Denies confusion, Denies convulsions Psychiatric: Denies anxiety Past Medical History Past Medical History: Cancer, CVA/TIA, Hyperlipidemia, Hypertension, Prostate Disorder Additional Past Medical History / Comment(s): colon cancer - metastatic disease to brain, lungs and spine. History of prostate cancer. History of Any Multi-Drug Resistant Organisms: None Reported Past Surgical History: Bowel Resection Additional Past Surgical History / Comment(s): colon surgery, brain surgery Past Anesthesia/Blood Transfusion Reactions: Postoperative Nausea & Vomiting (PONV) Additional Past Anesthesia/Blood Transfusion Reaction / Comm: Slow to wake Past Psychological History: No Psychological Hx Reported Smoking Status: Never smoker Past Alcohol Use History: None Reported Past Drug Use History: None Reported - Past Family History Father Family Medical History: Cancer Additional Family Medical History / Comment(s): Pancreatic cancer. Mother Additional Family Medical History / Comment(s): Mother was a heavy smokier and had breathing problems. Medications and Allergies Home Medications Medication Instructions Recorded Confirmed Type HYDROcodone/APAP 10-325MG [[place] 1 tab PO TID PRN 11/25/21 11/25/21 History 10-325] Ondansetron [Zofran] 8 mg PO Q8H PRN 11/25/21 11/25/21 History Pravastatin Sodium [Pravachol] 80 mg PO DAILY 11/25/21 11/25/21 History Prochlorperazine [Compazine] 10 mg PO Q6H PRN 11/25/21 11/25/21 History Rivaroxaban [Xarelto] 20 mg PO DAILY@1400 11/25/21 11/25/21 History amLODIPine BESYLATE/BENAZEPRIL 1 cap PO DAILY 11/25/21 11/25/21 History [Lotrel 2.5-10 MG] dexAMETHasone See Taper PO DIRECTED 11/25/21 11/25/21 History traZODone HCL [Desyrel] 100 mg PO HS 11/25/21 11/25/21 History Allergies Allergy/AdvReac Type Severity Reaction Status Date / Time No Known Allergies Allergy Verified 11/25/21 12:20 Physical Exam Vitals: Vital Signs Temp Pulse Resp BP Pulse Ox 11/27/21 04:26 98.3 F 67 18 113/72 96 11/26/21 20:00 18 11/26/21 19:00 97.8 F 72 18 100/66 95 11/26/21 11:46 97.9 F 82 18 112/74 97 11/26/21 08:10 98.3 F 80 16 131/73 98 Intake and Output 11/26/21 11/27/21 11/27/21 22:59 06:59 14:59 Intake Total 100 360 Output Total 200 Balance -100 360 Intake: Oral 100 360 Output: Urine 200 Other: Voiding Method Bedside Commode Urinal # Voids 2 1 # Bowel Movements 1 Weight 68.946 kg - Constitutional General appearance: thin - EENT Eyes: EOMI, PERRLA ENT: hearing grossly normal - Neck Neck: no lymphadenopathy - Respiratory Respiratory: bilateral: CTA - Cardiovascular Rhythm: regular - Gastrointestinal General gastrointestinal: no distended, no tenderness - Integumentary Integumentary: no cellulitis - Neurologic Neurologic: CNII-XII intact - Musculoskeletal Musculoskeletal: right sided weakness (RLE 3/5 strength - LLE 4+/5) - Psychiatric Psychiatric: A&O x's 3, appropriate affect Results CBC & Chem 7: 11/26/21 06:11 11/26/21 06:11 Labs: Abnormal Lab Results - Last 24 Hours (Table) 11/26/21 11/26/21 Range/Units 06:11 06:11 RBC 6.31 H (4.30-5.90) m/uL Hct 53.8 H (39.0-53.0) % MCHC 29.9 L (31.0-37.0) g/dL Lymphocytes # 0.9 L (1.0-4.8) k/uL Glucose 127 H (74-99) mg/dL CT scan - abdomen: report reviewed, image reviewed CT scan - chest: report reviewed, image reviewed CT scan - pelvis: report reviewed, image reviewed Assessment and Plan Assessment: The patient is a 61-year-old male with a history of metastatic adenocarcinoma the sigmoid colon, initially treated with surgical resection followed by FOLFOX in 2012. He has been treated with SBRT under the care of Dr. Vernon for several pulmonary metastases from 2015 through 2019. In April 2021, the patient underwent radiotherapy to a right frontal brain metastasis which had been previously surgically resected. He subsequently required more recent radiotherapy to a second right frontal brain metastasis performed on November 06, 2021 under the care of Dr. Vernon. He recently moved to [place] and transferred his care to Dr. Hamlin in medical oncology. He recently developed difficulty with ambulation and increasing pain in the upper right back. Imaging is consistent with spinal cord compression at T5. Plan: 1. Spinal cord compression: The patient's imaging and exam findings are consistent with a spinal cord compression at the level of T5. He does have weakness of the right lower extremity > Left. He has not noticed much change since starting dexamethasone. I discussed with the patient that his best chance that neurologic recovery would be to have surgical resection followed by postoperative radiation. I explained that for patients were not surgical candidates radiotherapy alone is also an option, but likely would not have as good of a chance that neurologic recovery. 2. Metastatic colon cancer: The patient has had systemic disease progression, and Dr. Hamlin is planning to move forward with systemic therapy. This would need to be put on hold temporarily if the patient were to undergo spinal surgery. The patient understands this recommendation. He is also due for repeat neuro imaging of the brain in the next few weeks. He does not appear to have any symptoms from his [employer]NA[employer] disease. Time with Patient: Greater than 30
--- NOTE | 2021-11-27 08:08 | P.PN ---
Subjective Progress Note Date: 11/27/21 Principal diagnosis: -Metestatic Carcinoma -T5 compressive lesion -LE weakness Pt s/e this AM. He is in good spirits and doing fairly well. He attempted to get up yesterday with assist to the bathroom and was able to get a few steps in but states his RLE is difficult to bear weight on due to weakness and his LLE is also somewhat weaker but seems to be stable from yesterday. He states he understands better what needs to happen in order for him to recover and he is understanding of what surgery entails. He asked appropriate questions about surgery and they were answered. He would like to proceed with surgery tomorrow. He spoke with his family and girlfriend who also agree. Denies any bowel or bladder issues at this time. States no perineal numbness or tingling. No long tract signs at this time. Objective - Vital Signs Vital signs: Vital Signs Temp 98.3 F 11/27/21 07:54 Pulse 80 11/27/21 07:54 Resp 18 11/27/21 07:54 BP 94/60 11/27/21 07:54 Pulse Ox 96 11/27/21 04:26 Intake & Output 11/26/21 11/27/21 11/27/21 18:59 06:59 18:59 Intake Total 460 Output Total 500 Balance -500 460 Weight 68.946 kg Intake: Oral 460 Output: Urine 500 Other: Voiding Method Bedside Commode Bedside Commode Urinal Urinal # Voids 2 1 # Bowel Movements 1 - Exam PHYSICAL EXAMINATION: Vitals: Stable General: Awake, alert, appropriate for age, in no acute distress. HEENT: No unusual neck masses around region of lateral neck triangle, thyroid, supraclavicular groove. Extremities: Skin warm and dry without no acute lesions, coloration, temperature, skin intact, no tenderness or erythema. Integument: Hairy patches: Absent Dorsal skin dimples: Absent Cafe au lait spots: Absent Surgical incisions: Well-healed incisions no spinal incisions Palpation: Please see Pain drawing on Intake sheet for further detail. (Tenderness = T, Nontender = NT, Swelling = S, Ecchymosis = E) Findings on Midline and paraspinal palpation and percussion: Cervical: NT Thoracic: Tenderness to palpation right hand side Lumbar: NT Sacral: NT Special findings: Right rib tenderness POSTURAL and MUSCULO-SKELETAL EVALUATION: Neck ROM: Unrestricted in six directions Lumbar ROM: Unrestricted in six directions Shoulder ROM: Symmetric in abduction, ER/IR Hip ROM: Symmetric in abduction, adduction, ER/IR Knee ROM: Symmetric and intact in Flexion / extension Hands: Normal appearing structure L and R Feet: Normal appearing structure L and R VASCULAR STATUS : Wrist Pulses: 2/4 bilateral radial and ulnar Pedal Pulses: 2/4 bilateral DP and PT Color: Normal Edema: None NEUROLOGIC EXAMINATION: Mental Status: Awake and alert, fully oriented, with normal attention, concentration and memory, and fluent, appropriate speech. Cranial Nerves: I: Olfactory not tested. II: Visual acuity normal, no visual field deficit noted with confrontation. III,IV: Normal pupillary reflexes & intact extraocular movements without nystagmus. V,: Intact symmetrical facial sensation. VII: Intact symmetrical facial motor movement VIII: Hearing intact. IX,X: Intact gag, swallow, & normal voice. XI: Sternocleidomastoid, trapezius function intact. XII: Tongue midline with normal movements. Special Tests: L'hermitte's Sign: Absent Spurling'Sign: Absent Bilateral Cubital percussion test: Absent Bilateral Catrachito-Tinel sign - Carpal region: Absent Bilateral Straight Leg Raising: Absent Bilateral Motor Exam (0-5/5, N/T) STRENGTH UPPER EXTREMITY Shoulder Abd (Not part of FAVIOLA Motor score): RIGHT 5 LEFT 5 Elbow Flexors: RIGHT 5 LEFT 5 Elbow Extensor: RIGHT 5 LEFT 5 Wrrist Dorsiflexors: RIGHT 5 LEFT 5 Finger Abductor: RIGHT 5 LEFT 5 Network Liaison: RIGHT 5 LEFT 5 LOWER EXTREMITY Hip Flexor (Not part of FAVIOLA Motor Score): RIGHT 3 LEFT 4 Knee Flexor: RIGHT 3 LEFT 4 Knee Extensor: RIGHT 3 LEFT 4 Ankle Dorsiflexion: RIGHT 3 LEFT 4 Ankle Plantarflexion: RIGHT 3 LEFT 4 EHL: RIGHT 3 LEFT 4 FHL: RIGHT 3 LEFT 4 He is still antigravity with his right lower extremity and is fairly stable with this. Left lower extremity shows no changes at this time REFLEXES Biecp: RIGHT 2 LEFT 2 Tricep: RIGHT 2 LEFT 2 Brachioradialis: RIGHT 2 LEFT 2 Patellar: RIGHT 2 LEFT 2 Achilles: RIGHT 2 LEFT 2 These remained stable no changes no long tract signs Pathological Reflexes Streeter's: RIGHT Absent LEFT Absent Babinski: RIGHT Absent LEFT Absent Clonus: RIGHT None LEFT None SENSORY Joint Position: Intact bilaterally Vibration Intact bilaterally Pain and LT sense Intact C5-T1 and L2-S1 Dermatomal deficit None Gait and Functional Evaluation: Ambulatory aids: Walker with assistance - Labs CBC & Chem 7: 11/26/21 06:11 11/26/21 06:11 Labs: Abnormal Lab Results - Last 24 Hours (Table) 11/26/21 11/26/21 Range/Units 06:11 06:11 RBC 6.31 H (4.30-5.90) m/uL Hct 53.8 H (39.0-53.0) % MCHC 29.9 L (31.0-37.0) g/dL Lymphocytes # 0.9 L (1.0-4.8) k/uL Glucose 127 H (74-99) mg/dL Assessment and Plan Assessment: 61 yo male metestatic carcinoma 1. T5 lytic destructive lesion 2. Severe thoracic cord compression 3. LE weakness 4. Multiple medical comorbidities Plan: -Continue decadron -Discussed with patient again signs and symptoms as well as options in treatment. At this time the patient remained stable and we will plan or operative intervention tomorrow with tumor resection separation surgery decompression and stabilization of T3 through T8 with T5 tumor resection. The patient understands limitations and risks of surgery. He agrees and would like to proceed. -We will ask for medical clearance and oncologic clearance for surgery tomorrow
[2021-11-27] MEDS: PRAVASTATIN SODIUM 80 MG TAB PO SCH (08:09)
[2021-11-27] MEDS: amLODIPine 2.5 MG TAB PO SCH (08:10)
[2021-11-27] MEDS: DOCUSATE 100 MG CAP PO SCH ×2 (08:12→21:07)
[2021-11-27] MEDS: lisinopriL 10 MG TAB PO SCH (08:12)
[2021-11-27] MEDS: HEPARIN SODIUM,PORCINE/PF 5,000 UNIT/0.5 ML SYRINGE SQ SCH ×4 (08:27→23:10)
--- NOTE | 2021-11-27 12:22 | P.CONS ---
History of Present Illness - Reason for Consult Consult date: 11/27/21 goals of care Requesting physician: Norris Rajput - Chief Complaint leg weakness/s/p fall - History of Present Illness The patient is a 61-year-old male with a history of metastatic adenocarcinoma the sigmoid colon, initially treated with surgical resection followed by FOLFOX in 2012. He has been treated with SBRT under the care of Dr. Vernon for several pulmonary metastases from 2015 through 2018. In April 2021, the patient underwent radiotherapy to a right frontal brain metastasis which had been previously surgically resected. He subsequently required more recent radiotherapy to a second right frontal brain metastasis performed on November 06, 2021 under the care of Dr. Vernon. He recently moved to [place] and transferred his care to Dr. Hamlin in medical oncology. He recently developed difficulty with ambulation and increasing pain in the upper right back. CT Imaging is consistent with spinal cord compression at T5. The patient reports that over the past week he has noticed further increase in lower extremity weakness. He reports having a fall at home, and presented to the hospital. He was having continued pain in the right upper back which radiates under the axilla. He has had no difficulty with loss of urinary control. He does admit to intermittent difficulty with constipation, but this is largely unchanged. Upon admission to the hospital, a CT of the thoracic and lumbar spine was performed on November 25. These studies revealed a large right paraspinal soft tissue mass at the level of T5 invading the spinal canal with likely cord compression. A large left apical lung mass was also visualized. The L-spine was largely unremarkable. The patient was subsequent he started on 6 mg dexamethasone 4 times a day, and has been evaluated by orthopedic spine surgery and oncology. MRI shows a large soft tissue component to tumor that extends from the T5 vertebral body causing destruction of the posterior elements of T5. The tumor is extradural and extends cranially to the level of T3-4 and caudally to mid T6 region. There is extension anteriorly from the CVJ that is abutting the posterior parietal plura, but there does not appear to be any extension into the lung at this time. There is pending instability of T5 due to the destruction. There is severe compression of the thoracic cord in this area due to tumor burden. An operative intervention is planned for : a tumor resection separation surgery with decompression and stabilization of T3 through T8 with T5 tumor resection. Review of Systems Review Of Systems: Constitutional: No fever, no chills, no night sweats. No weight change. Reports weakness and fatigue. HEENT: No headache. No blurred vision or double vision, no loss of vision. No loss of Hearing, no ringing in the ears, no dizziness. No nasal drainage or congestion. No epistaxis. No sore throat. Lungs: No shortness of breath, cough, no sputum production. No wheezing. Cardiovascular: No chest pain, no lower extremity edema. No palpitations. No paroxysmal nocturnal dyspnea. No orthopnea. No lightheadedness or dizziness. No syncopal episodes. Abdominal: No abdominal pain. No nausea, vomiting. No diarrhea. Reports chronic constipation. No bloody or tarry stools.. No loss of appetite. Genitourinary: No dysuria, increased frequency, urgency. No urinary retention. Musculoskeletal: No myalgias. Reports muscle weakness, gait dysfunction, and a fall. Reports back pain. No neck pain. Integumentary: No wounds, no lesions. No rash or pruritus. No unusual bruising. No change in hair or nails. Neurologic: No aphasia. No facial droop. No change in mentation. No head injury. No headache. No paralysis. No paresthesia. Psychiatric: Reports some mild depression. No anxiety. No mood swings. Past Medical History Past Medical History: Cancer, CVA/TIA, Hyperlipidemia, Hypertension, Prostate Disorder Additional Past Medical History / Comment(s): colon cancer - metastatic disease to brain, lungs and spine. History of prostate cancer. History of Any Multi-Drug Resistant Organisms: None Reported Past Surgical History: Bowel Resection Additional Past Surgical History / Comment(s): colon surgery, brain surgery Past Anesthesia/Blood Transfusion Reactions: Postoperative Nausea & Vomiting (PONV) Additional Past Anesthesia/Blood Transfusion Reaction / Comm: Slow to wake Past Psychological History: No Psychological Hx Reported Smoking Status: Never smoker Past Alcohol Use History: None Reported Past Drug Use History: None Reported - Past Family History Father Family Medical History: Cancer Additional Family Medical History / Comment(s): Pancreatic cancer. Mother Additional Family Medical History / Comment(s): Mother was a heavy smokier and had breathing problems. Medications and Allergies Home Medications Medication Instructions Recorded Confirmed Type HYDROcodone/APAP 10-325MG [[place] 1 tab PO TID PRN 11/25/21 11/25/21 History 10-325] Ondansetron [Zofran] 8 mg PO Q8H PRN 11/25/21 11/25/21 History Pravastatin Sodium [Pravachol] 80 mg PO DAILY 11/25/21 11/25/21 History Prochlorperazine [Compazine] 10 mg PO Q6H PRN 11/25/21 11/25/21 History Rivaroxaban [Xarelto] 20 mg PO DAILY@1400 11/25/21 11/25/21 History amLODIPine BESYLATE/BENAZEPRIL 1 cap PO DAILY 11/25/21 11/25/21 History [Lotrel 2.5-10 MG] dexAMETHasone See Taper PO DIRECTED 11/25/21 11/25/21 History traZODone HCL [Desyrel] 100 mg PO HS 11/25/21 11/25/21 History Allergies Allergy/AdvReac Type Severity Reaction Status Date / Time No Known Allergies Allergy Verified 11/25/21 12:20 Physical Exam Vitals: Vital Signs Temp Pulse Resp BP BP Pulse Ox 11/27/21 08:16 18 11/27/21 07:54 98.3 F 80 18 94/61 94/60 11/27/21 04:26 98.3 F 67 18 113/72 96 11/26/21 20:00 18 11/26/21 19:00 97.8 F 72 18 100/66 95 11/26/21 11:46 97.9 F 82 18 112/74 97 Intake and Output 11/26/21 11/27/21 11/27/21 22:59 06:59 14:59 Intake Total 100 360 Output Total 200 Balance -100 360 Intake: Oral 100 360 Output: Urine 200 Other: Voiding Method Bedside Commode Bedside Commode Urinal Urinal # Voids 2 1 # Bowel Movements 1 Weight 68.946 kg General: Patient awake alert and oriented x 3. No acute distress. HEENT: Head is atraumatic, normocephalic Neck is supple. Sclerae are clear. Pupils equal, round and reactive to light bilaterally. CV: Heart regular in rate and rhythm positive S1 and S2. No S3. No S4. No clicks, rubs or murmurs. No JVD. Peripheral pulses equal. 2/4 Lungs: Clear to auscultation bilaterally. No wheezes rales or rhonchi. Respirations even and nonlabored. No intercostal retractions. Abdomen/GI: Soft. Bowel sounds present in all 4 quadrants. Bowel sounds normoactive. No abdominal tenderness. : Voiding with out difficulty, clear yellow urine noted in urinal Musculoskeletal/ Extremities: Lower extremity weakness R>L. No tenderness on muscular exam. No ecchymosis. Vascular: Radial pulses equal. 2/4. Skin: No rash. Neurologic: Awake, alert and oriented times 3. Psychiatric: Appropriate mood and affect. 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 He has been out of work on disability since 2012, when he was first diagnosed with colon cancer. Marital status - The patient is single. He has had a fdc girlfriend, Mae Children - 2 grown daughters Support network - Girlfriend, daughters, and a few close friends Substance abuse - Denies any ETOH, tobacco, or drug use Spiritual/Cultural - No restoration, spiritual, or cultural preferences identified Functional - The patient's weakness has progressed significantly. He progressed from using a cane, to a walker, and is now unable to ambulate at all. He did have a recent fall at home. Prior to admission he was able to drive, use the bathroom independently, and shower. Now he is dependent on assistance for these activities. He is able to feed himself and denies any dysphagia. He is no longer able to prepare his own meals. He is still able to manage his own mediations and finances. Palliative performance score (PPS)- 50% Psych/Emotional - Depression/Anxiety - The patient states he has been feeling depressed since he has not been able to walk. He denies any suicidal thoughts or anxiety Stress - He tucker with stress by talking out his concerns with his friends Goals - To optimize function Plan: Symptoms * Pain - Patients states his pain is well controlled, continue [place], Toradol, Tylenol, and Motrin PRN. He has chronic pain and takes [place] at home. Currently c/o 4/10 back pain which he states is tolerable. * Fatigue - patient states he has chronic fatigue and low energy secondary to cancer treaments * SOB - denies * Insomnia - Continue Trazodone, patient has intermittent insomnia, takes Trazodone at home * N/V - denies, PRN Compazine and Zofran are available * Anxiety/Depression - denies anxiety there is PRN Ativan available, patient states his mild depression will get better after surgery and he is able to be more mobile * Confusion/agitation - none * Appetite/dysphagia/weight loss - Patient states his appetite is up and down at baseline. He denies any dysphagia. He has not had significant weight loss in the last month. * Constipation - Reports chronic constipation. Colace is ordered. LBM yesterday per patient. * Incontinence - denies * Itch - denies Goal/Plan - Education provided regarding his advanced metastatic cancer. The patient demonstrated good insight and judgement. Education also provided regarding his upcoming surgery. He understands the risks involved and wishes to proceed with his operation tomorrow. His goal after surgery is to work with ph ysical therapy, go to rehab, and eventually return home. He is hopeful and extremely motivated to get his strength back so he can walk again. Once he is discharged he plans on continuing aggressive treatment for his cancer, including chemo and radiation. Code Status Patient wishes to remain a full code. He is interested on information regarding advanced directives. Patient Advocate notified. Thank you for this consultation. Will continue to follow this patient. Viola Ramirez [facility] [place] [id number] Email: [email or web address] Time with Patient: Greater than 30
--- NOTE | 2021-11-27 13:17 | P.PN ---
Subjective Progress Note Date: 11/27/21 Principal diagnosis: Cord compression Sensation is worse on right from rib down, not much improvement seen thus far. Objective - Vital Signs Vital signs: Vital Signs Temp 97.9 F 11/27/21 12:49 Pulse 82 11/27/21 12:49 Resp 16 11/27/21 12:49 BP 100/64 11/27/21 12:49 Pulse Ox 97 11/27/21 12:49 Intake & Output 11/26/21 11/27/21 11/27/21 18:59 06:59 18:59 Intake Total 460 Output Total 500 400 Balance -500 460 -400 Weight 68.946 kg Intake: Oral 460 Output: Urine 500 400 Other: Voiding Method Bedside Commode Bedside Commode Bedside Commode Urinal Urinal Urinal # Voids 2 1 # Bowel Movements 1 - Exam - Constitutional General appearance: no acute distress - EENT Eyes: EOMI, PERRLA ENT: hearing grossly normal, normal oropharynx - Neck Neck: no lymphadenopathy Thyroid: bilateral: normal size - Respiratory Respiratory: bilateral: CTA - Cardiovascular Rhythm: regular Heart sounds: normal: S1, S2 - Gastrointestinal General gastrointestinal: normal bowel sounds, soft - Integumentary Integumentary: normal - Neurologic Decrease sensory to right leg, thigh and all below ribcage in comparison to left. He still has bladder and bowel control Neurologic: CNII-XII intact - Musculoskeletal Musculoskeletal: right sided weakness (RLE prox weakness 2-2+/5) - Labs CBC & Chem 7: 11/26/21 06:11 11/26/21 06:11 Assessment and Plan Plan: Comments: Xray lumbar and Tspine, CT scans lumbar and T spine reports reviewed Assessment and Plan (1) Cord compression Narrative/Plan: The pt is presenting with impending cord compression at T5, due to progression of his known metastatic colon ca. He does b/l LE weakness, R > L, with sensation mostly maintained at this time. Sensation is decreased on right still after interventions from ribcage below - IV steroids - Rad onc and Ortho spine following Current Visit: Yes Status: Acute Code(s): G95.20 - UNSPECIFIED CORD COMPRESSION SNOMED Code(s): 29837741 (2) Stage IV carcinoma of colon Narrative/Plan: Diagnostic and therapeutic circumstances as described. Systemic therapy on hold till acute problem is resolved. He will also need brain RT prior to the same Current Visit: Yes Status: Acute Code(s): C18.9 - MALIGNANT NEOPLASM OF COLON, UNSPECIFIED SNOMED Code(s): 398619777 Dr Kumari: I have completed the full history and physical, developed the above impression and plan, agree with dictation, dictated as a ascribe.
--- NOTE | 2021-11-27 17:39 | PN ---
PROGRESS NOTE This is a 61-year-old white male with cord compression, sensation down his leg, not improving. He is scheduled to have surgery tomorrow. Temperature 97.9, pulse 82, respiratory rate 16-18, blood pressure 100/64, O2 97. Leg strength is 3/5 bilaterally. Cardiovascular: Heart S1, S2. Lungs are clear. Neck with no adenopathy. GI soft. Neurologic: Decreased sensory down to the right leg, thigh. Musculoskeletal: Right leg weakness. All CT scans were reviewed. ASSESSMENT: 1. Cord compression in the thoracic area at T5 due to progression of his known metastatic colon cancer. 2. Decreased sensation in his leg secondary to this. He is on IV steroids. Possibly radiation will be done after surgery. 3. Stage IV colon cancer. He is radiotherapy prior to chemo. Wait for surgery tomorrow. Prognosis is poor long-term but okay for surgery. MMODL / IJN: [id number] /
--- NOTE | 2021-11-27 17:40 | P.PN ---
Subjective Progress Note Date: 11/26/21 Principal diagnosis: Lung mass, Large left-sided 8.7 cm mass along with multiple sclerotic pulmonary nodules seen in the right apex as well 1.3 cm nodule in right upper lobe, 2.3 cm nodule in left upper lobe and lingular area T5 vertebral mass of about 5.44.1 cm causing cord compression Lower extremity weakness more so on the right side compared to left side Status post fall COPD History of prostate: And brain cancer with metastases 11/26/2021, patient seen and evaluated examined during the rounds still have lower extremity weakness, patient to be evaluated by spine surgery, patient is not considered to be a candidate for interventional pain management, Estrace status however is stable patient remains on room air afebrile, oxygen saturation 96%, MRI of LS-spine pending, patient remains on Decadron Patient is a 61-year-old male with the primary is history of colon cancer came into the hospital with lower extremity weakness which has been going on for 1 week patient has been walking with the help of walker unable to stand by himself, he feels that he is more weak on the right leg compared to left leg, patient also tripped and fell down yesterday with some pain on the right lateral shoulder, patient denies any loss of consciousness or hemiparesis, denies any dizziness denies any chest pain no fever or chills patient sees Dr. rDew and Dr. Singh he is being treated with colon cancer prostate cancer and brain cancer he has some metastases in the lung and spine, computed tomography scan of the thoracic vertebra positive for large osseous lesion right side of the T5 vertebra and adjacent portion of the right fifth rib which was causing significant canal stenosis and likely spinal cord compression. In addition large left apical lung mass measuring about 8.77 cm also noted some irregular lesion of 2.3 cm also identified some bronchiectasis and right upper lobe 1.3 cm nodule noted. Patient denies any hemoptysis. Objective - Vital Signs Vital signs: Vital Signs Temp 97.9 F 11/26/21 11:46 Pulse 82 11/26/21 11:46 Resp 18 11/26/21 11:46 BP 112/74 11/26/21 11:46 Pulse Ox 97 11/26/21 11:46 Intake & Output 11/25/21 11/26/21 11/26/21 18:59 06:59 18:59 Intake Total 240 Output Total 300 250 300 Balance -300 -10 -300 Weight 68.946 kg Intake: Oral 240 Output: Urine 300 250 300 Other: Voiding Method Urinal Urinal Bedside Commode Urinal - Exam - Constitutional General appearance: average body habitus, cooperative, disheveled - EENT Eyes: EOMI, PERRLA ENT: normal oropharynx Ears: bilateral: normal - Neck Carotids: bilateral: upstroke normal Thyroid: bilateral: normal size - Respiratory Respiratory: bilateral: CTA - Cardiovascular Rhythm: regular Heart sounds: normal: S1, S2 - Gastrointestinal General gastrointestinal: soft - Integumentary Integumentary: normal turgor - Neurologic Neurologic: CNII-XII intact - Musculoskeletal Musculoskeletal: generalized weakness, right sided weakness - Psychiatric Psychiatric: A&O x's 3, appropriate affect, intact judgment & insight - Labs CBC & Chem 7: 11/26/21 06:11 11/26/21 06:11 Labs: Abnormal Lab Results - Last 24 Hours (Table) 11/25/21 11/26/21 11/26/21 Range/Units 10:33 06:11 06:11 RBC 6.31 H (4.30-5.90) m/uL Hct 53.8 H (39.0-53.0) % MCHC 29.9 L (31.0-37.0) g/dL Lymphocytes # 0.9 L (1.0-4.8) k/uL Glucose 127 H (74-99) mg/dL Ur Specific Malcolm >1.050 H (1.001-1.035) Urine Ketones Trace H (Negative) Urine Blood Trace H (Negative) Urine Mucus Few H (None) /hpf Assessment and Plan Assessment: Lung mass, Large left-sided 8.7 cm mass along with multiple sclerotic pulmonary nodules seen in the right apex as well 1.3 cm nodule in right upper lobe, 2.3 cm nodule in left upper lobe and lingular area T5 vertebral mass of about 5.44.1 cm causing cord compression Lower extremity weakness more so on the right side compared to left side Status post fall COPD History of prostate: And brain cancer with metastases Plan: Radiation oncology has been consulted, will defer radiation therapy to the expertise of Oncology, spine surgery also following, patient remains on Decadron likely will get decompression surgery and spine stabilization Will discuss with oncology about pulmonary diagnosis of lung mass likely can be evaluated on outpatient basis Physical therapy and rehab evaluation opted for radiation therapy We'll follow closely further recommendations pending plan of care as per clinical response of the patient Time with Patient: Greater than 30
--- NOTE | 2021-11-27 17:45 | P.PN ---
Subjective Progress Note Date: 11/27/21 Principal diagnosis: Lung mass, Large left-sided 8.7 cm mass along with multiple sclerotic pulmonary nodules seen in the right apex as well 1.3 cm nodule in right upper lobe, 2.3 cm nodule in left upper lobe and lingular area T5 vertebral mass of about 5.44.1 cm causing cord compression Lower extremity weakness more so on the right side compared to left side Status post fall COPD History of prostate: And brain cancer with metastases 11/27/2021, patient seen eval examined during the rounds labs reviewed medications reviewed, thyroid: Number spine MRI positive for osseous erosive lesion and soft tissue density with Stenosis and T4-T5 Level and Complete Effacement and the Right T4-T5 and T5-T6 Neural Foramina Compartment with Tumor, Lumbar Spine Intact the Left Apical Pulmonary Mass Remains Stable, Spine Surgery Well Aware of These Findings Patient Is Tentatively Scheduled to OR for Tomorrow 11/26/2021, patient seen and evaluated examined during the rounds still have lower extremity weakness, patient to be evaluated by spine surgery, patient is not considered to be a candidate for interventional pain management, Estrace status however is stable patient remains on room air afebrile, oxygen saturation 96%, MRI of LS-spine pending, patient remains on Decadron Patient is a 61-year-old male with the primary is history of colon cancer came into the hospital with lower extremity weakness which has been going on for 1 week patient has been walking with the help of walker unable to stand by himself, he feels that he is more weak on the right leg compared to left leg, patient also tripped and fell down yesterday with some pain on the right lateral shoulder, patient denies any loss of consciousness or hemiparesis, denies any dizziness denies any chest pain no fever or chills patient sees Dr. Drew and Dr. Singh he is being treated with colon cancer prostate cancer and brain cancer he has some metastases in the lung and spine, computed tomography scan of the thoracic vertebra positive for large osseous lesion right side of the T5 vertebra and adjacent portion of the right fifth rib which was causing significant canal stenosis and likely spinal cord compression. In addition large left apical lung mass measuring about 8.77 cm also noted some irregular lesion of 2.3 cm also identified some bronchiectasis and right upper lobe 1.3 cm nodule noted. Patient denies any hemoptysis. Objective - Vital Signs Vital signs: Vital Signs Temp 97.9 F 11/27/21 12:49 Pulse 82 11/27/21 12:49 Resp 16 11/27/21 12:49 BP 100/64 11/27/21 12:49 Pulse Ox 97 11/27/21 12:49 Intake & Output 11/26/21 11/27/21 11/27/21 18:59 06:59 18:59 Intake Total 460 Output Total 500 700 Balance -500 460 -700 Weight 68.946 kg Intake: Oral 460 Output: Urine 500 700 Other: Voiding Method Bedside Commode Bedside Commode Bedside Commode Urinal Urinal Urinal # Voids 2 1 # Bowel Movements 1 - Exam - Constitutional General appearance: average body habitus, cooperative, disheveled - EENT Eyes: EOMI, PERRLA ENT: normal oropharynx Ears: bilateral: normal - Neck Carotids: bilateral: upstroke normal Thyroid: bilateral: normal size - Respiratory Respiratory: bilateral: CTA - Cardiovascular Rhythm: regular Heart sounds: normal: S1, S2 - Gastrointestinal General gastrointestinal: soft - Integumentary Integumentary: normal turgor - Neurologic Neurologic: CNII-XII intact - Musculoskeletal Musculoskeletal: generalized weakness, right sided weakness - Psychiatric Psychiatric: A&O x's 3, appropriate affect, intact judgment & insight - Labs CBC & Chem 7: 11/26/21 06:11 11/26/21 06:11 Assessment and Plan Assessment: Lung mass, Large left-sided 8.7 cm mass along with multiple sclerotic pulmonary nodules seen in the right apex as well 1.3 cm nodule in right upper lobe, 2.3 cm nodule in left upper lobe and lingular area Large mid thoracic vertebral mass of about 5.44.1 cm causing cord compression Lower extremity weakness more so on the right side compared to left side Status post fall COPD History of prostate: And brain cancer with metastases Plan: To OR for decompression and spine stabilization by spine surgery with D5 tumor resection and stabilization T3 to T8 Radiation oncology has been consulted, will defer radiation therapy to the expertise of Oncology, spine surgery also following, patient remains on Decadron likely will get decompression surgery and spine stabilization Will discuss with oncology about pulmonary diagnosis of lung mass likely can be evaluated on outpatient basis Physical therapy and rehab evaluation opted for radiation therapy We'll follow closely further recommendations pending plan of care as per clinical response of the patient Time with Patient: Greater than 30
[2021-11-27] MEDS: traZODone HCL 100 MG TAB PO SCH (21:07)
[2021-11-28 08:26] LABS: HCT 51.6 % (39.0-53.0); HGB 15.4 gm/dL (13.0-17.5); MCH 25.3 pg (25.0-35.0); MCHC 29.9 g/dL (31.0-37.0); MCV 84.6 fL (80.0-100.0); Mean Platelet Volume 7.2; Platelet Count 311 k/uL (150-450); RBC 6.09 m/uL (4.30-5.90); RDW 13.9 % (11.5-15.5); WBC 5.9 k/uL (3.8-10.6)
[2021-11-28 08:43] LABS: Partial Thromboplastin Time 24.2 sec (22.0-30.0); Prothrombin Time 11.1 sec (9.0-12.0)
[2021-11-28 08:49] LABS: ALT 8 U/L (4-49); AST 20 U/L (17-59); African American GFR (CKD) 77 (>60 ml/min/1.73 sqM); Albumin 3.4 g/dL (3.5-5.0); Albumin/Globulin Ratio 1.3; Alkaline Phosphatase 86 U/L (38-126); Anion Gap 4 mmol/L; Blood Urea Nitrogen 16 mg/dL (9-20); Calcium 9.2 mg/dL (8.4-10.2); Carbon Dioxide 32 mmol/L (22-30); Chloride 101 mmol/L (98-107); Globulin 2.7 g/dL; Glucose 105 mg/dL (74-99); Non-African American GFR(CKD) 66 (>60 ml/min/1.73 sqM); Sodium 137 mmol/L (137-145); Total Bilirubin 0.6 mg/dL (0.2-1.3); Total Protein 6.1 g/dL (6.3-8.2)
[2021-11-28] MEDS ORDERED: ONDANSETRON 4 MG/2 ML VIAL IVP ONE (09:00)
[2021-11-28] MEDS ORDERED: LACTATED RINGERS 1,000 ML IV ONE (09:00)
[2021-11-28] MEDS ORDERED: MIDAZOLAM 2 MG/2 ML VIAL IVP ONE (09:02)
--- NOTE | 2021-11-28 10:12 | P.PN ---
Progress Note - Text Progress Note Date: 11/28/21 Pt s/e in pre op area. IN going through the case with anesthesia we reviewed the chart and the imaging and findings. Pt has a large mass in the lung that is extending into the pulmonary artery on the L. There is also pulmonary embolism that is seen and right heart strain. In speaking with pulmonary, he is likely as optimized as he would be for surgical intervention and there is no guarantee how he will do. In speaking with anesthesia, there is a strong feeling that the patient is outside the acceptable risk for surgery without further evaluation first at least by cardiology. As such, we have spoke with the patient and explained this all to him. He understands and is comfortable postponing until he is evaluated by cardiology for their input for surgical intervention. He understands the high high risk surgery poses to him and I will speak with his family and reiterate this as well. We will continue this discussion and postpone him until tomorrow.
[2021-11-28] MEDS: DOCUSATE 100 MG CAP PO SCH ×2 (11:13→20:51)
[2021-11-28] MEDS: amLODIPine 2.5 MG TAB PO SCH (11:13)
[2021-11-28] MEDS: lisinopriL 10 MG TAB PO SCH (11:13)
[2021-11-28] MEDS: PRAVASTATIN SODIUM 80 MG TAB PO SCH (11:13)
[2021-11-28] MEDS: HYDROcodone/APAP 10-325MG 1 EACH TAB PO PRN (12:06)
--- NOTE | 2021-11-28 12:22 | P.CRDCN ---
History of Present Illness History of present illness: HISTORY OF PRESENTING ILLNESS This is a pleasant 61-year-old male past medical history significant for hypertension, dyslipidemia, colon and prostate cancer initially diagnosed in 2012 with metastatsis to the liver, brain, lung and spine, Infrarenal IVC thrombus. He does not follow with a clinical nursing director. We have been asked to see in consultation for pulmonary artery occlusion, right heart strain, pre-op evaluation. Patient initially presented to the emergency department on 11/25/2021 with complaints of difficulty walking and bilateral lower extremity weakness and debility. His symptoms progressed and led to a fall due to the weakness and states his legs gave out. Oncology consulted and following patient. Thoracic spine CT revealed large soft tissue mass involving the right side at T5 vertebrae, causing significant spinal canal stenosis and likely spinal canal compression as well as adjacent right neural foraminal stenosis. Orthopedics was consulted. MRI of the Lumbar and T-spine revealed T5 vertebral body mass with osseous or erosive changes and large soft tissue component which demonstrated severe spinal canal stenosis at T4 to T5 levels and complete effacement of the right T4 to T5 and T5-T6 neural foramen with tumor. CT chest revealed a large lesion in the left upper lung invading into the left main pulmonary artery with demonstrates filing defect within likely representing a tumor thrombus. Pulmonary artery is patent distally. Apparent complete occlusion of the left upper lobe pulmonary artery. Suspect tumor thrombus also seen in the left superior pulmonary vein which could extend the left atrium. Scattered bilateral pulmonary lesions likely metastatic. Metastatic lesions also seen in spine, possibly left upper ribs and liver. Plan was for patient to undergo operative intervention today with orthopedics with tumor resection separation surgery decompression and stabilization of T3 through T8 with T5 tumor resection. Surgery was cancelled due to the high risk of surgery. Patient seen and examined at bedside. No acute distress. Continues to have back pain. He is alert, oriented x3. He has no chest pain or shortness of breath. No symptoms of orthopnea, PND, LE edema. Denies any palpitations, lightheadedness or dizziness. Patient does not have a history of coronary disease, OH, stroke, or diabetes. Labs: WBC 5.9, hemoglobin 15.4, platelets 311, sodium 137, potassium 5.0, BUN 16, serum creatinine 1.18, albumin 3.4 Home Cardiac medications include: amlodipine/benazepril 2.510mg daily, Xarelto 20 mg daily, pravastatin 80 mg daily REVIEW OF SYSTEMS At the time of my exam: CONSTITUTIONAL: Denies fever or chills. CARDIOVASCULAR: Denies chest pain, shortness of breath, orthopnea, PND or palpitations. RESPIRATORY: Denies cough. GASTROINTESTINAL: Denies abdominal pain, diarrhea, constipation, nausea or vomi ting. MUSCULOSKELETAL: + myalgias back NEUROLOGIC: Denies numbness, tingling, headacbe or weakness. ENDOCRINE: Denies fatigue, weight change, polydipsia or polyurina. GENITOURINARY: Denies burning, hematuria or urgency with micturation. HEMATOLOGIC: Denies history of anemia or bleeding. PHYSICAL EXAMINATION Blood pressure 104/70, heart rate 85, afebrile, oxygen saturations 97% liters nasal cannula CONSTITUTIONAL: No apparent distress. HEENT: Head is normocephalic. Pupils are equal, round. Sclerae anicteric. Mucous membranes of the mouth are moist. No JVD. No carotid bruit. CHEST EXAMINATION: Lungs are diminished to auscultation. No chest wall tenderness is noted on palpation or with deep breathing. HEART EXAMINATION: Regular rate and rhythm. S1, S2 heard. No murmurs, gallops or rub. ABDOMEN: Soft, nontender. Positive bowel sounds. EXTREMITIES: 2+ peripheral pulses, no lower extremity edema and no calf tenderness. NEUROLOGIC EXAMINATION: Patient is awake, alert and oriented x3. 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 -Continue home amlodipine and statin -Further recommendations based on clinical course Nurse practitioner note has been reviewed by physician. Signing provider agrees with the documented findings, assessment, and plan of care. Past Medical History Past Medical History: Cancer, CVA/TIA, Hyperlipidemia, Hypertension, Prostate Disorder Additional Past Medical History / Comment(s): colon cancer - metastatic disease to brain, lungs and spine. History of prostate cancer. History of Any Multi-Drug Resistant Organisms: None Reported Past Surgical History: Bowel Resection Additional Past Surgical History / Comment(s): colon surgery, brain surgery Past Anesthesia/Blood Transfusion Reactions: Postoperative Nausea & Vomiting (PONV) Additional Past Anesthesia/Blood Transfusion Reaction / Comment(s): Slow to wake Past Psychological History: No Psychological Hx Reported Smoking Status: Never smoker Past Alcohol Use History: None Reported Past Drug Use History: None Reported - Past Family History Father Family Medical History: Cancer Additional Family Medical History / Comment(s): Pancreatic cancer. Mother Additional Family Medical History / Comment(s): Mother was a heavy smokier and had breathing problems. Medications and Allergies Home Medications Medication Instructions Recorded Confirmed Type HYDROcodone/APAP 10-325MG [Holmen 1 tab PO TID PRN 11/25/21 11/25/21 History 10-325] Ondansetron [Zofran] 8 mg PO Q8H PRN 11/25/21 11/25/21 History Pravastatin Sodium [Pravachol] 80 mg PO DAILY 11/25/21 11/25/21 History Prochlorperazine [Compazine] 10 mg PO Q6H PRN 11/25/21 11/25/21 History Rivaroxaban [Xarelto] 20 mg PO DAILY@1400 11/25/21 11/25/21 History amLODIPine BESYLATE/BENAZEPRIL 1 cap PO DAILY 11/25/21 11/25/21 History [Lotrel 2.5-10 MG] dexAMETHasone See Taper PO DIRECTED 11/25/21 11/25/21 History traZODone HCL [Desyrel] 100 mg PO HS 11/25/21 11/25/21 History Allergies Allergy/AdvReac Type Severity Reaction Status Date / Time No Known Allergies Allergy Verified 11/28/21 08:54 Physical Exam Vitals: Vital Signs Temp Pulse Pulse Resp BP Pulse Ox 11/28/21 09:27 85 16 104/70 97 11/28/21 08:43 98.3 F 79 18 121/71 99 11/28/21 04:52 98.3 F 75 16 106/70 97 11/27/21 19:30 97.8 F 95 16 99/64 95 11/27/21 12:49 97.9 F 82 16 100/64 97 Intake and Output 11/27/21 11/28/21 11/28/21 22:59 06:59 14:59 Intake Total 240 Output Total 300 Balance -300 240 Intake: Oral 240 Output: Urine 300 Other: Voiding Method Bedside Commode Urinal # Voids 3 2 Results 11/28/21 07:57 11/28/21 07:57 Cardiac Enzymes 11/28/21 Range/Units 07:57 AST 20 (17-59) U/L Coagulation 11/28/21 Range/Units 07:57 PT 11.1 (9.0-12.0) sec APTT 24.2 (22.0-30.0) sec CBC 11/28/21 Range/Units 07:57 WBC 5.9 (3.8-10.6) k/uL RBC 6.09 H (4.30-5.90) m/uL Hgb 15.4 (13.0-17.5) gm/dL Hct 51.6 (39.0-53.0) % Plt Count 311 (150-450) k/uL Comprehensive Metabolic Panel 11/28/21 Range/Units 07:57 Sodium 137 (137-145) mmol/L Potassium 5.0 (3.5-5.1) mmol/L Chloride 101 (98-107) mmol/L Carbon Dioxide 32 H (22-30) mmol/L BUN 16 (9-20) mg/dL Creatinine 1.18 (0.66-1.25) mg/dL Glucose 105 H (74-99) mg/dL Calcium 9.2 (8.4-10.2) mg/dL AST 20 (17-59) U/L ALT 8 (4-49) U/L Alkaline Phosphatase 86 (38-126) U/L Total Protein 6.1 L (6.3-8.2) g/dL Albumin 3.4 L (3.5-5.0) g/dL Current Medications Generic Name Dose Route Start Last Admin Trade Name Freq PRN Reason Stop Dose Admin Acetaminophen 650 mg 11/25/21 13:01 Acetaminophen Tab 325 Mg Tab PO Q6HR PRN Mild Pain or Fever > 100.5 Hydrocodone Bitart/Acetaminophen 1 each 11/25/21 15:48 Hydrocodone/Apap 10-325mg 1 Each Tab PO TID PRN Pain Amlodipine Besylate 2.5 mg 11/26/21 09:00 11/27/21 08:10 Amlodipine 2.5 Mg Tab PO Not Given DAILY [facility] Dexamethasone Sodium Phosphate 6 mg 11/25/21 18:43 Dexamethasone Sod Phosphate 10 Mg/Ml 1 Ml Vial IV Q4HR PRN Nausea And Vomiting Docusate Sodium 100 mg 11/25/21 21:00 11/27/21 21:07 Docusate 100 Mg Cap PO 100 mg BID BYRON Administration Heparin Sodium (Porcine) 5,000 unit 11/25/21 16:00 11/27/21 23:10 Heparin Sodium,Porcine/Pf 5,000 Unit/0.5 Ml Syringe SQ 5,000 unit Q8HR BYRON Administration Ibuprofen 600 mg 11/25/21 13:06 Ibuprofen 600 Mg Tab PO Q8H PRN Mild Pain Ketorolac Tromethamine 15 mg 11/25/21 13:01 11/26/21 11:23 Ketorolac 15 Mg/Ml 1 Ml Vial IVP 11/28/21 13:05 15 mg Q6HR PRN Administration Moderate Pain Lisinopril 10 mg 11/26/21 09:00 11/27/21 08:12 Lisinopril 10 Mg Tab PO Not Given DAILY [facility] Lorazepam 0.5 mg 11/25/21 13:01 Lorazepam 0.5 Mg Tab PO Q6HR PRN Anxiety Naloxone HCl 0.2 mg 11/25/21 13:01 Naloxone 0.4 Mg/Ml 1 Ml Vial IV Q2M PRN Opioid Reversal Ondansetron HCl 4 mg 11/25/21 13:01 Ondansetron 4 Mg/2 Ml Vial IVP Q8HR PRN Nausea And Vomiting Pravastatin Sodium 80 mg 11/26/21 09:00 11/27/21 08:09 Pravastatin Sodium 80 Mg Tab PO 80 mg DAILY [facility] Administration Prochlorperazine Maleate 10 mg 11/25/21 15:48 Prochlorperazine 10 Mg Tab PO Q6H PRN Nausea Trazodone HCl 100 mg 11/25/21 21:00 11/27/21 21:07 Trazodone Hcl 100 Mg Tab PO 100 mg HS BYRON Administration Intake and Output 11/27/21 11/28/21 11/28/21 22:59 06:59 14:59 Intake Total 240 Output Total 300 Balance -300 240 Intake: Oral 240 Output: Urine 300 Other: Voiding Method Bedside Commode Urinal # Voids 3 2 11/28/21 07:57 11/28/21 07:57
--- NOTE | 2021-11-28 13:23 | P.PN ---
Subjective Progress Note Date: 11/28/21 Principal diagnosis: BIlateral leg weakness/fall The patient is a 61-year-old male with a history of metastatic adenocarcinoma the sigmoid colon, initially treated with surgical resection followed by FOLFOX in 2012. He has been treated with SBRT under the care of Dr. Vernon for several pulmonary metastases from 2015 through 2018. In April 2021, the patient underwent radiotherapy to a right frontal brain metastasis which had been previously surgically resected. He subsequently required more recent radiotherapy to a second right frontal brain metastasis performed on November 06, 2021 under the care of Dr. Vernon. He recently moved to [place] and transferred his care to Dr. Hamlin in medical oncology. He recently developed difficulty with ambulation and increasing pain in the upper right back. CT Imaging is consistent with spinal cord compression at T5. The patient reports that over the past week he has noticed further increase in lower extremity weakness. He reports having a fall at home, and presented to the hospital. He was having continued pain in the right upper back which radiates under the axilla. He has had no difficulty with loss of urinary control. He does admit to intermittent difficulty with constipation, but this is largely unchanged. Upon admission to the hospital, a CT of the thoracic and lumbar spine was performed on November 25. These studies revealed a large right paraspinal soft tissue mass at the level of T5 invading the spinal canal with likely cord compression. A large left apical lung mass was also visualized. The L-spine was largely unremarkable. The patient was subsequent he started on 6 mg dexamethasone 4 times a day, and has been evaluated by orthopedic spine surgery and oncology. MRI shows a large soft tissue component to tumor that extends from the T5 vertebral body causing destruction of the posterior elements of T5. The tumor is extradural and extends cranially to the level of T3-4 and caudally to mid T6 region. There is extension anteriorly from the CVJ that is abutting the posterior parietal plura, but there does not appear to be any extension into the lung at this time. There is pending instability of T5 due to the destruction. There is severe compression of the thoracic cord in this area due to tumor burden. An operative intervention is planned for : a tumor resection separation surgery with decompression and stabilization of T3 through T8 with T5 tumor resection. Objective - Vital Signs Vital signs: Vital Signs Temp 98.1 F 11/28/21 12:10 Pulse 112 H 11/28/21 12:10 Resp 18 11/28/21 12:10 BP 95/62 11/28/21 12:10 Pulse Ox 97 11/28/21 12:10 Intake & Output 11/27/21 11/28/21 11/28/21 18:59 06:59 18:59 Intake Total 240 500 Output Total 700 Balance -700 240 500 Intake: IV 500 Oral 240 Output: Urine 700 Other: Voiding Method Bedside Commode Bedside Commode Bedside Commode Urinal Urinal Urinal # Voids 3 2 - Exam General: Patient awake alert and oriented x 3. No acute distress. HEENT: Head is atraumatic, normocephalic Neck is supple. Sclerae are clear. Pupils equal, round and reactive to light bilaterally. CV: Heart regular in rate and rhythm positive S1 and S2. No S3. No S4. No clicks, rubs or murmurs. No JVD. Peripheral pulses equal. 2/4 Lungs: Clear to auscultation bilaterally. No wheezes rales or rhonchi. Respirations even and nonlabored. No intercostal retractions. Abdomen/GI: Soft. Bowel sounds present in all 4 quadrants. Bowel sounds normoactive. No abdominal tenderness. : Voiding with out difficulty, clear yellow urine noted in urinal Musculoskeletal/ Extremities: Lower extremity weakness R>L. No tenderness on muscular exam. No ecchymosis. Vascular: Radial pulses equal. 2/4. Skin: No rash. Neurologic: Awake, alert and oriented times 3. Psychiatric: Appropriate mood and affect. - Labs CBC & Chem 7: 11/28/21 07:57 11/28/21 07:57 Labs: Abnormal Lab Results - Last 24 Hours (Table) 11/28/21 11/28/21 Range/Units 07:57 07:57 RBC 6.09 H (4.30-5.90) m/uL MCHC 29.9 L (31.0-37.0) g/dL Carbon Dioxide 32 H (22-30) mmol/L Glucose 105 H (74-99) mg/dL Total Protein 6.1 L (6.3-8.2) g/dL Albumin 3.4 L (3.5-5.0) g/dL Assessment and Plan Assessment: Symptoms * Pain - Patients states his pain is well controlled, continue Arden[place], Toradol, Tylenol, and Motrin PRN. He has chronic pain and takes Ardenvoir at home. * Fatigue - patient states he has chronic fatigue and low energy secondary to cancer treaments * SOB - denies * Insomnia - Continue Trazodone, patient has intermittent insomnia, takes Trazodone at home * N/V - denies, PRN Compazine and Zofran are available * Anxiety/Depression - denies anxiety there is PRN Ativan available, patient states his mild depression will get better after surgery and he is able to be more mobile * Confusion/agitation - none * Appetite/dysphagia/weight loss - Patient states his appetite is up and down at baseline. He denies any dysphagia. He has not had significant weight loss in the last month. * Constipation - Reports chronic constipation. Colace is ordered. LBM yesterday per patient. * Incontinence - denies * Itch - denies Goal/Plan - 11/28 - Education provided regarding his advanced metastatic cancer. The patient demonstrated good insight and judgement. Education also provided regarding his upcoming surgery. He understands the risks involved and wishes to proceed with his operation tomorrow. His goal after surgery is to work with physical therapy, go to rehab, and eventually return home. He is hopeful and extremely motivated to get his strength back so he can walk again. Once he is discharged he plans on continuing aggressive treatment for his cancer, including chemo and radiation. 11/29 - The patient's surgery was postponed. He has a large mass in the lung that is extending into the pulmonary artery. There is also pulmonary embolism that is seen and right heart strain. Cardiology was consulted for clearance. 2Decho and doppler study pending. The patient is worried about finding somewhere to live if they are unable to do surgery. He states he is unable to live alone now. Reassured patient that we would help find a facility to live in. Surgery to re-evaluate options tomorrow. Code Status Patient wishes to remain a full code. He is interested on information regarding advanced directives. Patient Advocate notified. Thank you for this consultation. Will continue to follow this patient. Viola Ramirez [facility] Palliative Care [place]ink [phone] Email: [email or web address] Time with Patient: Less than 30
[2021-11-28] MEDS ORDERED: DEXAMETHASONE SOD PHOSPHATE 4 MG/ML 1 ML VIAL IV PRN (15:19)
[2021-11-28] MEDS: DEXAMETHASONE SOD PHOSPHATE 4 MG/ML 1 ML VIAL IV SCH ×2 (15:46→19:36)
[2021-11-28] MEDS ORDERED: RIVAROXABAN 20 MG TAB PO SCH (16:45)
--- NOTE | 2021-11-28 16:58 | P.PN ---
Subjective Progress Note Date: 11/28/21 Principal diagnosis: Lung mass, Large left-sided 8.7 cm mass along with multiple sclerotic pulmonary nodules seen in the right apex as well 1.3 cm nodule in right upper lobe, 2.3 cm nodule in left upper lobe and lingular area T5 vertebral mass of about 5.44.1 cm causing cord compression Lower extremity weakness more so on the right side compared to left side Status post fall COPD History of prostate: And brain cancer with metastases 11/28/2021, patient seen eval examined during the rounds labs reviewed medications reviewed care plan discussed, surgery which was planned earlier this morning have been canceled will put back on Xarelto due to 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, patient was already on before and was held due to anticipated surgery 11/27/2021, patient seen eval examined during the rounds labs reviewed medications reviewed, thyroid: Number spine MRI positive for osseous erosive lesion and soft tissue density with Stenosis and T4-T5 Level and Complete Effacement and the Right T4-T5 and T5-T6 Neural Foramina Compartment with Tumor, Lumbar Spine Intact the Left Apical Pulmonary Mass Remains Stable, Spine Surgery Well Aware of These Findings Patient Is Tentatively Scheduled to OR for Tomorrow 11/26/2021, patient seen and evaluated examined during the rounds still have lower extremity weakness, patient to be evaluated by spine surgery, patient is not considered to be a candidate for interventional pain management, Estrace status however is stable patient remains on room air afebrile, oxygen saturation 96%, MRI of LS-spine pending, patient remains on Decadron Patient is a 61-year-old male with the primary is history of colon cancer came into the hospital with lower extremity weakness which has been going on for 1 week patient has been walking with the help of walker unable to stand by himself, he feels that he is more weak on the right leg compared to left leg, patient also tripped and fell down yesterday with some pain on the right lateral shoulder, patient denies any loss of consciousness or hemiparesis, denies any dizziness denies any chest pain no fever or chills patient sees Dr. Drew and Dr. Singh he is being treated with colon cancer prostate cancer and brain cancer he has some metastases in the lung and spine, computed tomography scan of the thoracic vertebra positive for large osseous lesion right side of the T5 vertebra and adjacent portion of the right fifth rib which was causing significant canal stenosis and likely spinal cord compression. In addition large left apical lung mass measuring about 8.77 cm also noted some irregular lesion of 2.3 cm also identified some bronchiectasis and right upper lobe 1.3 cm nodule noted. Patient denies any hemoptysis. Objective - Vital Signs Vital signs: Vital Signs Temp 98.1 F 11/28/21 12:10 Pulse 112 H 11/28/21 12:10 Resp 18 11/28/21 12:10 BP 95/62 11/28/21 12:10 Pulse Ox 97 11/28/21 12:10 Intake & Output 11/27/21 11/28/21 11/28/21 18:59 06:59 18:59 Intake Total 240 500 Output Total 700 Balance -700 240 500 Intake: IV 500 Oral 240 Output: Urine 700 Other: Voiding Method Bedside Commode Bedside Commode Bedside Commode Urinal Urinal Urinal # Voids 3 2 - Exam - Constitutional General appearance: average body habitus, cooperative, disheveled - EENT Eyes: EOMI, PERRLA ENT: normal oropharynx Ears: bilateral: normal - Neck Carotids: bilateral: upstroke normal Thyroid: bilateral: normal size - Respiratory Respiratory: bilateral: CTA - Cardiovascular Rhythm: regular Heart sounds: normal: S1, S2 - Gastrointestinal General gastrointestinal: soft - Integumentary Integumentary: normal turgor - Neurologic Neurologic: CNII-XII intact - Musculoskeletal Musculoskeletal: generalized weakness, right sided weakness - Psychiatric Psychiatric: A&O x's 3, appropriate affect, intact judgment & insight - Labs CBC & Chem 7: 11/28/21 07:57 11/28/21 07:57 Labs: Abnormal Lab Results - Last 24 Hours (Table) 11/28/21 11/28/21 Range/Units 07:57 07:57 RBC 6.09 H (4.30-5.90) m/uL MCHC 29.9 L (31.0-37.0) g/dL Carbon Dioxide 32 H (22-30) mmol/L Glucose 105 H (74-99) mg/dL Total Protein 6.1 L (6.3-8.2) g/dL Albumin 3.4 L (3.5-5.0) g/dL Assessment and Plan Assessment: Lung mass, Large left-sided 8.7 cm mass along with multiple sclerotic pulmonary nodules seen in the right apex as well 1.3 cm nodule in right upper lobe, 2.3 cm nodule in left upper lobe and lingular area Large mid thoracic vertebral mass of about 5.44.1 cm causing cord compression Lower extremity weakness more so on the right side compared to left side Status post fall COPD History of prostate: And brain cancer with metastases Plan: Surgery has been postponed and canceled by anesthesia Continue Decadron Resume direct total anticoagulants Radiation oncology following as well Will discuss with oncology about pulmonary diagnosis of lung mass likely can be evaluated on outpatient basis Physical therapy and rehab evaluation opted for radiation therapy We'll follow closely further recommendations pending plan of care as per c linical response of the patient Time with Patient: Greater than 30
--- NOTE | 2021-11-28 17:09 | P.PN ---
Subjective Progress Note Date: 11/28/21 Principal diagnosis: Cord compression Patient was in OR during attempted visits Objective - Vital Signs Vital signs: Vital Signs Temp 98.1 F 11/28/21 12:10 Pulse 112 H 11/28/21 12:10 Resp 18 11/28/21 12:10 BP 95/62 11/28/21 12:10 Pulse Ox 97 11/28/21 12:10 Intake & Output 11/27/21 11/28/21 11/28/21 18:59 06:59 18:59 Intake Total 240 500 Output Total 700 Balance -700 240 500 Intake: IV 500 Oral 240 Output: Urine 700 Other: Voiding Method Bedside Commode Bedside Commode Bedside Commode Urinal Urinal Urinal # Voids 3 2 - Labs CBC & Chem 7: 11/28/21 07:57 11/28/21 07:57 Labs: Abnormal Lab Results - Last 24 Hours (Table) 11/28/21 11/28/21 Range/Units 07:57 07:57 RBC 6.09 H (4.30-5.90) m/uL MCHC 29.9 L (31.0-37.0) g/dL Carbon Dioxide 32 H (22-30) mmol/L Glucose 105 H (74-99) mg/dL Total Protein 6.1 L (6.3-8.2) g/dL Albumin 3.4 L (3.5-5.0) g/dL Assessment and Plan Plan: Comments: Xray lumbar and Tspine, CT scans lumbar and T spine reports reviewed Assessment and Plan (1) Cord compression Narrative/Plan: The pt is presenting with impending cord compression at T5, due to progression of his known metastatic colon ca. He does b/l LE weakness, R > L, with sensation mostly maintained at this time. Sensation is decreased on right still after interventions from ribcage below - IV steroids - Rad onc and Ortho spine following Current Visit: Yes Status: Acute Code(s): G95.20 - UNSPECIFIED CORD COMPRESSION SNOMED Code(s): 44244109 (2) Stage IV carcinoma of colon Narrative/Plan: Diagnostic and therapeutic circumstances as described. Systemic therapy on hold till acute problem is resolved. He will also need brain RT prior to the same Current Visit: Yes Status: Acute Code(s): C18.9 - MALIGNANT NEOPLASM OF COLON, UNSPECIFIED SNOMED Code(s): 164042991 At surgery today, will follow up tomorrow Dr Kumari: I have completed the full history and physical, developed the above impression and plan, agree with dictation, dictated as a ascribe.
[2021-11-28] MEDS: HEPARIN SODIUM,PORCINE/PF 5,000 UNIT/0.5 ML SYRINGE SQ SCH (18:09)
--- NOTE | 2021-11-28 19:12 | P.PN ---
Progress Note - Text Progress Note Date: 11/28/21 I was able have a long talk with the patient as well as his significant other over the phone. We discussed all the options for surgical and nonsurgical intervention. We discussed all the risks and benefits associated with surgery and not doing surgery. The patient is extremely high risk for surgery there is no doubt. We have asked cardiology to evaluate the patient as well for their input. In speaking with pulmonology as well as medicine the patient is essentially clear for surgery however he is extremely high risk. However in speaking with anesthesia about the patient 3 separate anesthesiologists have also concurred that the patient is not a surgical candidate as his risk of adver se event due to anesthesia surgery and possible related to this undertaking is too high and outweighs the benefit potential of surgery. I discussed this at length with the patient. While I cannot ignore this, I can also not ignore the patient's potential for neurologic demise. I discussed with the patient that doing nothing in the form of surgery will likely lead to further neurologic compromise eventual paralysis paraparesis possible bowel and bladder dysfunction possible sensation loss and further unforeseen neurologic damage. The only guarantee can give the patient is that I can remove tumor from the region that is compressive to decompress that area when I cannot guarantee is how much this actually helps the patient how much neurologic function he regains how much strength he regains and if she would be able to walk again and I discussed with the patient all of this. He understood this. He understands that not doing surgery there is a potential for doing radiation however this is not likely to give him the same results as the potential of surgery would give him. He understands the risks involved and not doing surgery as well as the high risks involved in doing surgery. In speaking with the patient and his significant other after going through all the potential outcomes risks adverse events etc. the patient has come to the conclusion that he does not want surgi louie intervention at this time and would rather explore palliative care, radiation and other means. He does not want to undergo the procedure due to the high risk involved as well as the need for recovery afterwards the potential for adverse events and his wishes to continue with his life how it is at this time. I continued this discussion with him and his significant other they understand the decision that they are making and why they are making it. I presented to them all of the information that we have here available to us about his situation and condition including his imaging scans lab work consults etc. He is comfortable with the decision he has made thus far and would like to forego surgery at this time. We will respect his wishes.
[2021-11-28] MEDS: RIVAROXABAN 20 MG TAB PO SCH (19:37)
[2021-11-28] MEDS: traZODone HCL 100 MG TAB PO SCH (20:51)
[2021-11-29] MEDS: DEXAMETHASONE SOD PHOSPHATE 4 MG/ML 1 ML VIAL IV SCH ×5 (00:01→23:56)
[2021-11-29] MEDS: HYDROcodone/APAP 10-325MG 1 EACH TAB PO PRN ×2 (00:03→09:32)
--- NOTE | 2021-11-29 07:51 | CA ---
Transthoracic Echo Report Name: David Youssef Age: 61 Gender: M : 1960 Exam Date: 11/28/2021 12:58 Exam Location: [facility] Ht (in): 69 Wt (lb): 152 Ordering Physician: Sera Canseco Attending/Referring Phys: Art Framing Manager Maira Gleason RDCS Procedure CPT: Indications: evaluate right heart strain, metastatic cancer Cardiac Hx: Technical Quality: Fair Contrast 1: Total Dose (mL): Contrast 2: Total Dose (mL): MEASUREMENTS (Male / Female) Normal Values 2D ECHO LV Diastolic Diameter PLAX 2.9 cm 4.2 - 5.9 / 3.9 - 5.3 cm LV Systolic Diameter PLAX 1.8 cm IVS Diastolic Thickness 1.2 cm 0.6 - 1.0 / 0.6 - 0.9 cm LVPW Diastolic Thickness 1.4 cm 0.6 - 1.0 / 0.6 - 0.9 cm LV Relative Wall Thickness 0.9 RV Internal Dim ED PLAX 3.3 cm LA Volume 40.6 cm 18 - 58 / 22 - 52 cm M-MODE Aortic Root Diameter MM 2.9 cm LA Systolic Diameter MM 3.2 cm LA Ao Ratio MM 1.1 AV Cusp Separation MM 1.8 cm DOPPLER AV Peak Velocity 151.8 cm/s AV Peak Gradient 9.2 mmHg LVOT Peak Velocity 123.6 cm/s LVOT Peak Gradient 6.1 mmHg MV Area PHT 3.8 cm Mitral E Point Velocity 81.6 cm/s Mitral A Point Velocity 86.5 cm/s Mitral E to A Ratio 0.9 MV Deceleration Time 197.5 ms MV E' Velocity 6.8 cm/s Mitral E to MV E' Ratio 12.1 TR Peak Velocity 274.0 cm/s TR Peak Gradient 30.0 mmHg Right Ventricular Systolic Press 34.8 mmHg FINDINGS Left Ventricle Moderately increased left ventricular wall thickness. normal left ventricular wall motion. Left ventricular cavity size normal. Left ventricular ejection fraction is estimated at 55-60 %. Right Ventricle Mild right ventricular dilatation. Mild pulmonary hypertension. Right ventricular systolic pressure estimated at 35 mm hg. Positive for right heart strain, TAPSE calculated at 24.7mm Right Atrium Normal right atrial size. Left Atrium The left atrium is normal in size. Mitral Valve Structurally normal mitral valve without significant stenosis or prolapse. There is no mitral regurgitation. Aortic Valve Structurally normal aortic valve without significant sclerosis or stenosis. There is no aortic regurgitation. Tricuspid Valve Structurally normal tricuspid valve without significant stenosis. Mild tricuspid regurgitation. Pulmonic Valve Structurally normal pulmonic valve without significant stenosis. There is no pulmonic regurgitation. Pericardium Normal pericardium without effusion. Aorta Normal aortic root dimension. CONCLUSIONS #1. Moderate left ventricle hypertrophy with preserved LV function and ejection fraction of 55-60%. #2. Mild right ventricular dilatation and mild pulmonary hypertension. #3. Mild tricuspid regurgitation. #4. No pericardial effusion Previewed by: Dr. Srinivasa Rodriguez MD (Electronically Signed) Final Date: 29 November 2021 07:50
[2021-11-29] MEDS: DOCUSATE 100 MG CAP PO SCH ×2 (09:32→21:11)
[2021-11-29] MEDS: amLODIPine 2.5 MG TAB PO SCH (09:32)
[2021-11-29] MEDS: PRAVASTATIN SODIUM 80 MG TAB PO SCH (09:32)
[2021-11-29] MEDS: lisinopriL 10 MG TAB PO SCH (09:33)
--- NOTE | 2021-11-29 10:20 | P.PN ---
Subjective This is a pleasant 61-year-old male past medical history significant for hypertension, dyslipidemia, colon and prostate cancer initially diagnosed in 2012 with metastatsis to the liver, brain, lung and spine, Infrarenal IVC thrombus. 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 We have been asked to see in consultation for pulmonary artery occlusion, right heart strain, pre-op evaluation. Patient initially presented to the emergency department on 11/25/2021 with complaints of difficulty walking and bilateral lower extremity weakness and debility. His symptoms progressed and led to a fall due to the weakness and states his legs gave out. Oncology consulted and following patient. Thoracic spine CT revealed large soft tissue mass involving the right side at T5 vertebrae, causing significant spinal canal stenosis and likely spinal canal compression as well as adjacent right neural foraminal stenosis. Orthopedics was consulted. MRI of the Lumbar and T-spine revealed T5 vertebral body mass with osseous or erosive changes and large soft tissue component which demonstrated severe spinal canal stenosis at T4 to T5 levels and complete effacement of the right T4 to T5 and T5-T6 neural foramen with tumor. CT chest revealed a large lesion in the left upper lung invading into the left main pulmonary artery with demonstrates filing defect within likely representing a tumor thrombus. Pulmonary artery is patent distally. Apparent complete occlusion of the left upper lobe pulmonary artery. Suspect tumor thrombus also seen in the left superior pulmonary vein which could extend the left atrium. Scattered bilateral pulmonary lesions likely metastatic. Metastatic lesions also seen in spine, possibly left upper ribs and liver. Plan was for patient to undergo operative intervention today with orthopedics with tumor resection separation surgery decompression and stabilization of T3 through T8 with T5 tumor resection. Surgery was cancelled due to the high risk of surgery. 11/29/21 Patient seen and examined at bedside. No acute distress. Pain is relatively controlled. He is alert, oriented x3. He has no chest pain or shortness of b reath. Vital signs are stable. Echo revealed ejection fraction of 5560 percent, mild right ventricular dilatation and mild pulmonary hypertension, mild tricuspid regurgitation, no pericardial effusion. RVSP is 34 mmHg PHYSICAL EXAMINATION Blood pressure 117/78, heart rate 76, afebrile, saturation is 99% on room air CONSTITUTIONAL: No apparent distress. HEENT: Neck Supple. No JVD. CHEST EXAMINATION: Lungs are diminished to auscultation. No chest wall tenderness is noted on palpation or with deep breathing. HEART EXAMINATION: Regular rate and rhythm. S1, S2 heard. No murmurs, gallops or rub. ABDOMEN: Soft, nontender. Positive bowel sounds. EXTREMITIES: 2+ peripheral pulses, no lower extremity edema and no calf tenderness. NEUROLOGIC EXAMINATION: Patient is awake, alert and oriented x3. 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 Echocardiogram obtained and reviewed with no acute findings. From a cardiology perspective there are no absolute contraindications to undergo surgery at this time. -Continue home amlodipine and statin -We will follow the patient as needed. Please reach out with any further questions or concerns Nurse practitioner note has been reviewed by physician. Signing provider agrees with the documented findings, assessment, and plan of care. Objective - Vital Signs Vital signs: Vital Signs Temp 97.7 F 11/29/21 04:24 Pulse 76 11/29/21 04:24 Resp 16 11/29/21 04:24 BP 117/78 11/29/21 04:24 Pulse Ox 99 11/29/21 04:24 Intake & Output 11/28/21 11/29/21 11/29/21 18:59 06:59 18:59 Intake Total 1000 Balance 1000 Intake: IV 500 Oral 500 Other: Voiding Method Bedside Commode Urinal Urinal # Voids 4 0 - Labs CBC & Chem 7: 11/28/21 07:57 11/28/21 07:57
--- NOTE | 2021-11-29 11:56 | P.PN ---
Subjective Progress Note Date: 11/29/21 Principal diagnosis: bilataeral leg weakness, s/p fall, Lung mass, T5 vertebral mass causing cord compression The patient is a 61-year-old male with a history of metastatic adenocarcinoma the sigmoid colon, initially treated with surgical resection followed by FOLFOX in 2012. He has been treated with SBRT under the care of Dr. Vernon for several pulmonary metastases from 2015 through 2018. In April 2021, the patient underwent radiotherapy to a right frontal brain metastasis which had been previously surgically resected. He subsequently required more recent radiotherapy to a second right frontal brain metastasis performed on November 06, 2021 under the care of Dr. Vernon. He recently moved to [place] and transferred his care to Dr. Hamlin in medical oncology. He recently developed difficulty with ambulation and increasing pain in the upper right back. CT Imaging is consistent with spinal cord compression at T5. The patient reports that over the past week he has noticed further increase in lower extremity weakness. He reports having a fall at home, and presented to the hospital. He was having continued pain in the right upper back which radiates under the axilla. He has had no difficulty with loss of urinary control. He does admit to intermittent difficulty with constipation, but this is largely unchanged. Upon admission to the hospital, a CT of the thoracic and lumbar spine was performed on November 25. These studies revealed a large right paraspinal soft tissue mass at the level of T5 invading the spinal canal with likely cord compression. A large left apical lung mass was also visualized. The L-spine was largely unremarkable. The patient was subsequent he started on 6 mg dexamethasone 4 times a day, and has been evaluated by orthopedic spine surgery and oncology. MRI shows a large soft tissue component to tumor that extends from the T5 vertebral body causing destruction of the posterior elements of T5. The tumor is extradural and extends cranially to the level of T3-4 and caudally to mid T6 region. There is extension anteriorly from the CVJ that is abutting the posterior parietal plura, but there does not appear to be any extension into the lung at this time. There is pending instability of T5 due to the destruction. There is severe compression of the thoracic cord in this area due to tumor burden. An operative intervention is planned for : a tumor resection separation surgery with decompression and stabilization of T3 through T8 with T5 tumor resection. 11/27 - Education provided regarding his advanced metastatic cancer. The patient demonstrated good insight and judgement. Education also provided regarding his upcoming surgery. He understands the risks involved and wishes to proceed with his operation tomorrow. His goal after surgery is to work with physical therapy, go to rehab, and eventually return home. He is hopeful and extremely motivated to get his strength back so he can walk again. Once he is discharged he plans on continuing aggressive treatment for his cancer, including chemo and radiation. 11/28 - The patient's surgery was postponed. He has a large mass in the lung t hat is extending into the pulmonary artery. There is also pulmonary embolism that is seen and right heart strain. Cardiology was consulted for clearance. 2Decho and doppler study pending. The patient is worried about finding somewhere to live if they are unable to do surgery. He states he is unable to live alone now. Reassured patient that we would help find a facility to live in. Surgery to re-evaluate options tomorrow. Objective - Vital Signs Vital signs: Vital Signs Temp 97.7 F 11/29/21 04:24 Pulse 76 11/29/21 04:24 Resp 16 11/29/21 04:24 BP 117/78 11/29/21 04:24 Pulse Ox 99 11/29/21 04:24 Intake & Output 11/28/21 11/29/21 11/29/21 18:59 06:59 18:59 Intake Total 1000 Balance 1000 Intake: IV 500 Oral 500 Other: Voiding Method Bedside Commode Urinal Urinal # Voids 4 0 - Exam General: Patient awake alert and oriented x 3. No acute distress. HEENT: Head is atraumatic, normocephalic Neck is supple. Sclerae are clear. Pupils equal, round and reactive to light bilaterally. CV: Heart regular in rate and rhythm positive S1 and S2. No S3. No S4. No clicks, rubs or murmurs. No JVD. Peripheral pulses equal. 2/4 Lungs: Clear to auscultation bilaterally. No wheezes rales or rhonchi. Respirations even and nonlabored. No intercostal retractions. Abdomen/GI: Soft. Bowel sounds present in all 4 quadrants. Bowel sounds normoactive. No abdominal tenderness. : Voiding with out difficulty, clear yellow urine noted in urinal Musculoskeletal/ Extremities: Lower extremity weakness R>L. No tenderness on muscular exam. No ecchymosis. Vascular: Radial pulses equal. 2/4. Skin: No rash. Neurologic: Awake, alert and oriented times 3. Psychiatric: Appropriate mood and affect. - Labs CBC & Chem 7: 11/28/21 07:57 11/28/21 07:57 Assessment and Plan Plan: Symptoms * Pain - Patients states his pain is well controlled, continue [place], Toradol, Tylenol, and Motrin PRN. He has chronic pain and takes [place] at home. * Fatigue - patient states he has chronic fatigue and low energy secondary to cancer treaments * SOB - denies, on RA * Insomnia - Continue Trazodone, patient has intermittent insomnia, takes Trazodone at home * N/V - denies, PRN Compazine and Zofran are available * Anxiety/Depression - denies anxiety there is PRN Ativan available, patient denies nay depression * Confusion/agitation - none * Appetite/dysphagia/weight loss - Patient states his appetite is up and down at baseline. He denies any dysphagia. He has not had significant weight loss in the last month. * Constipation - Reports chronic constipation. Colace is ordered. LBM yesterday per patient. * Incontinence - denies, voiding per urinal * Itch - denies Goal/Plan - 11/29 Patient was cleared for surgery by cardiology. However, after a lengthy discussion with the surgeon, the patient decided against having surgery due to it being too high risk. The patient is to begin radiation treatment today. His was told that he may never walk again. He stated he is alright with that. His goal is to just get enough strength back in his legs to move them around. He states he has good upper body strength and will be able to use a wheelchair to get around. After his radiation treatments are completed, he would like to go to rehab. Code Status Patient wishes to remain a full code. Thank you for this consultation. Will continue to follow this patient. Viola Ramirez [facility] Palliative Care [facility] [email or web address] Email: [email or web address] Time with Patient: Less than 30
--- NOTE | 2021-11-29 12:06 | PN ---
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 Unable to do surgery, as the mass is into the pulmonary artery. Anesthesia cancelled surgery. Discussed case with Dr. Montgomery and the patient. The patient is going to get radiation treatment over the next week or so with Dr. Singh, who sees him for radiation therapy, to try to debulk with radiation to the tumor so he can move his legs and then he will probably go home. Cardiovascular S1-S2. Lungs clear. GI soft. Vital signs reviewed. Musculoskeletal: He has got range of motion decreased, but he can move his legs. Wait for radiation to start in the next few days on his thoracic lesion of metastatic colon cancer prior to him going to a jail or physical therapy after he gets radiation on the spine. Discussed the case with Dr. Montgomery and the patient. All in agreement. MMODL / REHANN: [id number] /
--- NOTE | 2021-11-29 14:32 | P.PN ---
Subjective Progress Note Date: 11/29/21 Principal diagnosis: T5 cord compression Patient doing OK this AM. Notes improved pain in the right posterior shoulder - much better than prior to admission. Still feels the right leg is weak however - does not think this has improved despite Decadron. As noted, surgery was can celled yesterday for possible separation surgery for cord compression. Patient felt a high anesthesia risk - pulmonary tumor invading left PA. Objective - Vital Signs Vital signs: Vital Signs Temp 98 F 11/29/21 12:20 Pulse 86 11/29/21 12:20 Resp 16 11/29/21 12:20 BP 114/76 11/29/21 12:20 Pulse Ox 97 11/29/21 12:20 Intake & Output 11/28/21 11/29/21 11/29/21 18:59 06:59 18:59 Intake Total 1000 Balance 1000 Intake: IV 500 Oral 500 Other: Voiding Method Bedside Commode Urinal Urinal Urinal # Voids 4 0 - Constitutional General appearance: Present: no acute distress - EENT Eyes: Present: EOMI, PERRLA ENT: Present: hearing grossly normal - Neck Neck: Absent: lymphadenopathy - Respiratory Respiratory: bilateral: CTA - Cardiovascular Rhythm: regular - Gastrointestinal General gastrointestinal: Absent: tenderness - Integumentary Integumentary: Absent: calor - Neurologic Neurologic: Present: CNII-XII intact - Psychiatric Psychiatric: Present: A&O x's 3, appropriate affect - Labs CBC & Chem 7: 11/28/21 07:57 11/28/21 07:57 Assessment and Plan Assessment: The patient is a 61-year-old male with a history of metastatic adenocarcinoma the sigmoid colon, initially treated with surgical resection followed by FOLFOX in 2012. He has been treated with SBRT under the care of Dr. Vernon for several pulmonary metastases from 2015 through 2019. In April 2021, the patient underwent radiotherapy to a right frontal brain metastasis which had been previously surgically resected. He subsequently required more recent radiotherapy to a second right frontal brain metastasis performed on November 06, 2021 under the care of Dr. Vernon. He recently moved to [place] and transferred his care to Dr. Hamlin in medical oncology. He presented to the hospital with RLE weakness and difficulty with ambulation. Was found to have a large paraspinal mass at T5 resulting in spinal cord compression. Plan: 1. T5 Spinal cord compression: As noted above, the patient previously was planning on undergoing surgical resection yesterday. However, the patient was n ot felt to be a suitable anesthesia risk. The patient therefore decided after discussion to forego separation surgery. I discussed with the patient the importance of starting in urgent course of radiotherapy to the thoracic spinal lesion. The patient expressed understanding that his best chance of further neurologic recovery with surgery, but that it is possible he will have some improvement with palliative radiation. I explained to the first undergo CT simulation for treatment planning. I explained radiotherapy would be delivered over approximately 6 fractions. I discussed possible side effects of this treatment which includes, but is not limited to; fatigue, skin irritation, dysphagia, odynophagia and low risk of long-term toxicity considering palliative dosing. The patient is agreeable to move forward with planning this morning and we will initiate his radiotherapy this afternoon. He will also be looking at placement options considering his lack of ability to ambulate makes him unable to stay in his current place. The patient could certainly continue radiotherapy as an outpatient or if he is discharged to rehabilitation. Time with Patient: Less than 30
--- NOTE | 2021-11-29 14:56 | P.PN ---
Progress Note - Text Progress Note Date: 11/29/21 Diagnosis: metastatic carcinoma Subjective: Patient was seen at bedside this afternoon resting comfortably lying in the semirecumbent position. Patient says he is not able to get up out of bed under his own power. Patient says he is not able to move his right leg at all says it feels very weak at this time. Patient says he is able to move his left leg. Patient says he did talk with Dr. Montgomery at length yesterday about potential options and has decided to forego surgery at this time due to high risk during anesthesia and mass pushing on pulmonary artery. Objective: Negative for any open fractures, significant ecchymosis/erythema. Sensation is equal, symmetric, bilaterally intact throughout the upper and lower extremities. Tenderness to palpation throughout the thoracic spine. Nontender to palpation throughout rest exam. Patient does have full range of motion bilateral upper extremities and left lower extremity. Patient has significantly decreased range of motion in the right lower extremity due to weakness. Strength 2+/5 throughout right lower extremity. 4+/5 LLE. All other major motor groups 5/5. Radial pulses intact, 2+ bilaterally. Cap refill under 3 seconds in digits upper extremities. Negative Homans bilaterally. Assessment: 1. T5 lytic destructive lesion 2. Severe thoracic cord compression 3. LE weakness 4. Multiple medical comorbidities Plan: 1. T5 lytic destructive lesion; Severe thoracic cord compression; LE weakness - patient stable at bedside this afternoon. Patient says he did talk with Dr. Montgomery at length yesterday about potential options and has decided to forego surgery at this time due to high risk during anesthesia and mass pushing on pulmonary artery. At this time we recommend patient to continue following with oncology and medicine. This time we're recommending conservative measures via pain control with [place], Tylenol. We'll continue to follow patient while in hospital 2. Appreciate medical and oncology management 3. Pain management - [place]; Tylenol 3. DVT prophylaxis - Xarelto 4. GI prophylaxis - Colace 5. PT/OT
[2021-11-29] MEDS: RIVAROXABAN 20 MG TAB PO SCH (16:37)
--- NOTE | 2021-11-29 20:27 | P.PN ---
Subjective Progress Note Date: 11/29/21 Principal diagnosis: Cord compression Patient has apparently refused decompression and surgical intervention and opted for palliative radiation only, he has had first today Objective - Vital Signs Vital signs: Vital Signs Temp 97.9 F 11/29/21 16:27 Pulse 95 11/29/21 16:28 Resp 16 11/29/21 16:28 BP 119/73 11/29/21 16:27 Pulse Ox 98 11/29/21 16:27 Intake & Output 11/29/21 11/29/21 11/30/21 06:59 18:59 06:59 Output Total 400 Balance -400 Weight 68.946 kg Output: Urine 400 Other: Voiding Method Urinal Urinal # Voids 0 - Exam - Constitutional General appearance: no acute distress - EENT Eyes: EOMI, PERRLA ENT: hearing grossly normal, normal oropharynx - Neck Neck: no lymphadenopathy Thyroid: bilateral: normal size - Respiratory Respiratory: bilateral: CTA - Cardiovascular Rhythm: regular Heart sounds: normal: S1, S2 - Gastrointestinal General gastrointestinal: normal bowel sounds, soft - Integumentary Integumentary: normal - Neurologic Decrease sensory to right leg, thigh and all below ribcage in comparison to left. He still has bladder and bowel control Neurologic: CNII-XII intact - Musculoskeletal Musculoskeletal: right sided weakness (RLE prox weakness 2-2+/5) - Labs CBC & Chem 7: 11/28/21 07:57 11/28/21 07:57 Assessment and Plan Plan: Comments: Xray lumbar and Tspine, CT scans lumbar and T spine reports reviewed Assessment and Plan (1) Cord compression Narrative/Plan: The pt is presenting with impending cord compression at T5, due to progression of his known metastatic colon ca. He does b/l LE weakness, R > L, with sensation mostly maintained at this time. Sensation is decreased on right still after interventions from ribcage below - IV steroids - Rad onc and Ortho spine following - Patient has refused surgical intervention and proceeded with palliative radiation Current Visit: Yes Status: Acute Code(s): G95.20 - UNSPECIFIED CORD COMPRESSION SNOMED Code(s): 18186125 (2) Stage IV carcinoma of colon Narrative/Plan: Diagnostic and therapeutic circumstances as described. Systemic therapy on hold till acute problem is resolved. He will also need brain RT prior to the same Current Visit: Yes Status: Acute Code(s): C18.9 - MALIGNANT NEOPLASM OF COLON, UNSPECIFIED SNOMED Code(s): 100196391 Patient has decided against surgical intervention and has proceeded with first radiation today Dr Kumari: I have completed the full history and physical, developed the above impression and plan, agree with dictation, dictated as a ascribe.
[2021-11-29] MEDS: traZODone HCL 100 MG TAB PO SCH (21:11)
[2021-11-30] MEDS: DEXAMETHASONE SOD PHOSPHATE 4 MG/ML 1 ML VIAL IV SCH ×3 (05:41→17:31)
[2021-11-30] MEDS: lisinopriL 10 MG TAB PO SCH (07:59)
[2021-11-30] MEDS: DOCUSATE 100 MG CAP PO SCH ×2 (07:59→20:36)
[2021-11-30] MEDS: PRAVASTATIN SODIUM 80 MG TAB PO SCH (08:00)
[2021-11-30] MEDS: amLODIPine 2.5 MG TAB PO SCH (08:00)
[2021-11-30] MEDS: HYDROcodone/APAP 10-325MG 1 EACH TAB PO PRN ×2 (08:02→17:31)
--- NOTE | 2021-11-30 08:32 | P.PN ---
Progress Note - Text Progress Note Date: 11/30/21 Diagnosis: metastatic carcinoma Subjective: Patient was seen at bedside this morning resting comfortably sitting up eating breakfast. Patient says he is not able to get up out of bed under his own power. Patient says he is not able to move his right leg at all says it feels very weak at this time. Patient says he is able to move his left leg. Patient says he did talk with Dr. Montgomery at length about potential options and has decided to forego surgery at this time due to high risk during anesthesia and mass pushing on pulmonary artery. Patient says he does have 2 more treatments with oncology on Thursday and Thursday Objective: Negative for any open fractures, significant ecchymosis/erythema. Sensation is equal, symmetric, bilaterally intact throughout the upper and lower extremities. Tenderness to palpation throughout the thoracic spine. Nontender to palpation throughout rest exam. Patient does have full range of motion bilateral upper extremities and left lower extremity. Patient has significantly decreased range of motion in the right lower extremity due to weakness. Strength 2+/5 throughout right lower extremity. 4+/5 LLE. All other major motor groups 5/5. Radial pulses intact, 2+ bilaterally. Cap refill under 3 seconds in digits upper extremities. Negative Homans bilaterally. Assessment: 1. T5 lytic destructive lesion 2. Severe thoracic cord compression 3. LE weakness 4. Multiple medical comorbidities Plan: 1. T5 lytic destructive lesion; Severe thoracic cord compression; LE weakness - patient stable at bedside this afternoon. Patient says he did talk with Dr. Montgomery at length about potential options and has decided to forego surgery at this time due to high risk during anesthesia and mass pushing on pulmonary artery. At this time we recommend patient to continue following with oncology and medicine. This time we're recommending conservative measures via pain control with [place], Tylenol. At this time orthopedics is signing off. We will be available if needed. Please not hesitate to contact us for any further questions. 2. Appreciate medical and oncology management 3. Pain management - [place]; Tylenol 3. DVT prophylaxis - Xarelto 4. GI prophylaxis - Colace 5. PT/OT
--- NOTE | 2021-11-30 12:51 | P.PN ---
Subjective Progress Note Date: 11/29/21 Principal diagnosis: Lung mass, Large left-sided 8.7 cm mass along with multiple sclerotic pulmonary nodules seen in the right apex as well 1.3 cm nodule in right upper lobe, 2.3 cm nodule in left upper lobe and lingular area T5 vertebral mass of about 5.44.1 cm causing cord compression Lower extremity weakness more so on the right side compared to left side Status post fall COPD History of prostate: And brain cancer with metastases 11/29/2021, patient seen eval reexamined the still have significant weakness in the right lower extremity as well as the left lower extremity, spine surgery have canceled as per recommendation anesthesia 11/28/2021, patient seen eval examined during the rounds labs reviewed medications reviewed care plan discussed, surgery which was planned earlier this morning have been canceled will put back on Xarelto due to 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, patient was already on before and was held due to anticipated surgery 11/27/2021, patient seen eval examined during the rounds labs reviewed medications reviewed, thyroid: Number spine MRI positive for osseous erosive lesion and soft tissue density with Stenosis and T4-T5 Level and Complete Effacement and the Right T4-T5 and T5-T6 Neural Foramina Compartment with Tumor, Lumbar Spine Intact the Left Apical Pulmonary Mass Remains Stable, Spine Surgery Well Aware of These Findings Patient Is Tentatively Scheduled to OR for Tomorrow 11/26/2021, patient seen and evaluated examined during the rounds still have lower extremity weakness, patient to be evaluated by spine surgery, patient is not considered to be a candidate for interventional pain management, E[place]ace status however is stable patient remains on room air afebrile, oxygen saturation 96%, MRI of LS-spine pending, patient remains on Decadron Patient is a 61-year-old male with the primary is history of colon cancer came into the hospital with lower extremity weakness which has been going on for 1 week patient has been walking with the help of walker unable to stand by himself, he feels that he is more weak on the right leg compared to left leg, patient also tripped and fell down yesterday with some pain on the right lateral shoulder, patient denies any loss of consciousness or hemiparesis, denies any dizziness denies any chest pain no fever or chills patient sees Dr. Drew and Dr. Singh he is being treated with colon cancer prostate cancer and brain cancer he has some metastases in the lung and spine, computed tomography scan of the thoracic vertebra positive for large osseous lesion right side of the T5 vertebra and adjacent portion of the right fifth rib which was causing significant canal stenosis and likely spinal cord compression. In addition large left apical lung mass measuring about 8.77 cm also noted some irregular lesion of 2.3 cm also identified some bronchiectasis and right upper lobe 1.3 cm nodule noted. Patient denies any hemoptysis. Objective - Vital Signs Vital signs: Vital Signs Temp 98 F 11/29/21 12:20 Pulse 86 11/29/21 12:20 Resp 16 11/29/21 12:20 BP 114/76 11/29/21 12:20 Pulse Ox 97 11/29/21 12:20 Intake & Output 11/28/21 11/29/21 11/29/21 18:59 06:59 18:59 Intake Total 1000 Balance 1000 Intake: IV 500 Oral 500 Other: Voiding Method Bedside Commode Urinal Urinal Urinal # Voids 4 0 - Exam - Constitutional General appearance: average body habitus, cooperative, disheveled - EENT Eyes: EOMI, PERRLA ENT: normal oropharynx Ears: bilateral: normal - Neck Carotids: bilateral: upstroke normal Thyroid: bilateral: normal size - Respiratory Respiratory: bilateral: CTA - Cardiovascular Rhythm: regular Heart sounds: normal: S1, S2 - Gastrointestinal General gastrointestinal: soft - Integumentary Integumentary: normal turgor - Neurologic Neurologic: CNII-XII intact - Musculoskeletal Musculoskeletal: generalized weakness, right sided weakness - Psychiatric Psychiatric: A&O x's 3, appropriate affect, intact judgment & insight - Labs CBC & Chem 7: 11/28/21 07:57 11/28/21 07:57 Assessment and Plan Assessment: Lung mass, Large left-sided 8.7 cm mass along with multiple sclerotic pulmonary nodules seen in the right apex as well 1.3 cm nodule in right upper lobe, 2.3 cm nodule in left upper lobe and lingular area Large mid thoracic vertebral mass of about 5.44.1 cm causing cord compression Lower extremity weakness more so on the right side compared to left side Status post fall COPD History of prostate: And brain cancer with metastases Plan: Surgery has been postponed and canceled by anesthesia Continue Decadron Continue direct total anticoagulants Radiation oncology following as well Will discuss with oncology about pulmonary diagnosis of lung mass likely can be evaluated on outpatient basis Physical therapy and rehab evaluation opted for radiation therapy We'll follow closely further recommendations pending plan of care as per clinical response of the patient Time with Patient: Greater than 30
--- NOTE | 2021-11-30 12:53 | P.PN ---
Subjective Progress Note Date: 11/30/21 Principal diagnosis: Lung mass, Large left-sided 8.7 cm mass along with multiple sclerotic pulmonary nodules seen in the right apex as well 1.3 cm nodule in right upper lobe, 2.3 cm nodule in left upper lobe and lingular area T5 vertebral mass of about 5.44.1 cm causing cord compression Lower extremity weakness more so on the right side compared to left side Status post fall COPD History of prostate: And brain cancer with metastases 11/30/2021, patient seen eval reexamined during the rounds labs reviewed medications reviewed, patient now appears to have paralysis and weakness worse on the right leg cannot move now left leg some movement antigravity is present, respiratory status stable denies any chest pain, patient is undergoing radiation therapy of the spine as well as on Decadron patient remains on diuretic anticoagulants patient has been cleared by cardiology for surgery however anesthesia refused 11/29/2021, patient seen eval reexamined the still have significant weakness in the right lower extremity as well as the left lower extremity, spine surgery have canceled as per recommendation anesthesia 11/28/2021, patient seen eval examined during the rounds labs reviewed medications reviewed care plan discussed, surgery which was planned earlier this morning have been canceled will put back on Xarelto due to 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, patient was already on before and was held due to anticipated surgery 11/27/2021, patient seen eval examined during the rounds labs reviewed medications reviewed, thyroid: Number spine MRI positive for osseous erosive lesion and soft tissue density with Stenosis and T4-T5 Level and Complete Effacement and the Right T4-T5 and T5-T6 Neural Foramina Compartment with Tumor, Lumbar Spine Intact the Left Apical Pulmonary Mass Remains Stable, Spine Surgery Well Aware of These Findings Patient Is Tentatively Scheduled to OR for Tomorrow 11/26/2021, patient seen and evaluated examined during the rounds still have lower extremity weakness, patient to be evaluated by spine surgery, patient is not considered to be a candidate for interventional pain management, Estrace status however is stable patient remains on room air afebrile, oxygen saturation 96%, MRI of LS-spine pending, patient remains on Decadron Patient is a 61-year-old male with the primary is history of colon cancer came into the hospital with lower extremity weakness which has been going on for 1 week patient has been walking with the help of walker unable to stand by himself, he feels that he is more weak on the right leg compared to left leg, patient also tripped and fell down yesterday with some pain on the right lateral shoulder, patient denies any loss of consciousness or hemiparesis, denies any dizziness denies any chest pain no fever or chills patient sees Dr. Drew and Dr. Singh he is being treated with colon cancer prostate cancer and brain cancer he has some metastases in the lung and spine, computed tomography scan of the thoracic vertebra positive for large osseous lesion right side of the T5 vertebra and adjacent portion of the right fifth rib which was causing significant canal stenosis and likely spinal cord compression. In addition large left apical lung mass measuring about 8.77 cm also noted some irregular lesion of 2.3 cm also identified some bronchiectasis and right upper lobe 1.3 cm nodule noted. Patient denies any hemoptysis. Objective - Vital Signs Vital signs: Vital Signs Temp 97.8 F 11/30/21 04:15 Pulse 82 11/30/21 04:15 Resp 18 11/30/21 04:15 BP 119/77 11/30/21 04:15 Pulse Ox 98 11/30/21 04:15 Intake & Output 11/29/21 11/30/21 11/30/21 18:59 06:59 18:59 Intake Total 660 Output Total 400 300 375 Balance -400 360 -375 Weight 68.946 kg Intake: Oral 660 Output: Urine 400 300 375 Other: Voiding Method Urinal Urinal Urinal # Voids 3 - Exam - Constitutional General appearance: average body habitus, cooperative, disheveled - EENT Eyes: EOMI, PERRLA ENT: normal oropharynx Ears: bilateral: normal - Neck Carotids: bilateral: upstroke normal Thyroid: bilateral: normal size - Respiratory Respiratory: bilateral: CTA - Cardiovascular Rhythm: regular Heart sounds: normal: S1, S2 - Gastrointestinal General gastrointestinal: soft - Integumentary Integumentary: normal turgor - Neurologic Neurologic: CNII-XII intact - Musculoskeletal Musculoskeletal: generalized weakness, right sided weakness - Psychiatric Psychiatric: A&O x's 3, appropriate affect, intact judgment & insight - Labs CBC & Chem 7: 11/28/21 07:57 11/28/21 07:57 Assessment and Plan Assessment: Lung mass, Large left-sided 8.7 cm mass along with multiple sclerotic pulmonary nodules seen in the right apex as well 1.3 cm nodule in right upper lobe, 2.3 cm nodule in left upper lobe and lingular area Large mid thoracic vertebral mass of about 5.44.1 cm causing cord compression Lower extremity weakness more so on the right side compared to left side Status post fall COPD History of prostate: And brain cancer with metastases Plan: Surgery has been postponed and canceled by anesthesia Continue Decadron Continue direct total anticoagulants Radiation oncology following as well Will discuss with oncology about pulmonary diagnosis of lung mass likely can be evaluated on outpatient basis Physical therapy and rehab evaluation opted for radiation therapy We'll follow closely further recommendations pending plan of care as per clinical response of the patient
[2021-11-30] MEDS: RIVAROXABAN 20 MG TAB PO SCH (16:12)
--- NOTE | 2021-11-30 17:39 | PN ---
PROGRESS NOTE DATE OF SERVICE: 11/30/2021 This 61-year-old gentleman was admitted with generalized weakness with a T5 vertebral compression. The patient is being closely monitored. No chest pain. No palpitations. No fever. On exam, pulse 82, blood pressure 119/70, respiration 18. CHEST: A few scattered rhonchi. ABDOMEN: Soft. NERVOUS SYSTEM: Paraplegia present. CARDIOVASCULAR: S1, S2 normal. Labs are reviewed. ASSESSMENT: 1. Bilateral weakness and paraparesis secondary to T5 vertebral mass. 2. Possible lung mass. 3. Lower extremity weakness. 4. Status post fall. 5. Chronic obstructive pulmonary disease. RECOMMENDATIONS AND DISCUSSION: I recommend to continue current medications, continue with the monitoring, symptomatic treatment. PT/OT evaluation. Possible ECF rehab. Continue the rest of the medications. Further recommendations to follow. MMSANTOSL / REHANN: [id number] /
[2021-11-30] MEDS: traZODone HCL 100 MG TAB PO SCH (20:36)
[2021-12-01] MEDS: DEXAMETHASONE SOD PHOSPHATE 4 MG/ML 1 ML VIAL IV SCH ×5 (00:07→23:57)
[2021-12-01] MEDS: HYDROcodone/APAP 10-325MG 1 EACH TAB PO PRN ×2 (05:58→17:38)
[2021-12-01] MEDS: lisinopriL 10 MG TAB PO SCH (07:46)
[2021-12-01] MEDS: DOCUSATE 100 MG CAP PO SCH ×2 (07:46→20:06)
[2021-12-01] MEDS: PRAVASTATIN SODIUM 80 MG TAB PO SCH (07:47)
[2021-12-01] MEDS: amLODIPine 2.5 MG TAB PO SCH (07:47)
--- NOTE | 2021-12-01 14:48 | P.PN ---
Subjective Progress Note Date: 12/01/21 Principal diagnosis: Lung mass, Large left-sided 8.7 cm mass along with multiple sclerotic pulmonary nodules seen in the right apex as well 1.3 cm nodule in right upper lobe, 2.3 cm nodule in left upper lobe and lingular area T5 vertebral mass of about 5.44.1 cm causing cord compression Lower extremity weakness more so on the right side compared to left side Status post fall COPD History of prostate: And brain cancer with metastases 12/01/2021, patient seen eval reexamined during the rounds labs reviewed medications reviewed care plan discussed, patient now has the complete flaccid paralysis of right lower extremity some strength on the left side however is present, patient is getting radiation therapy Thursday to Thursday of thoracic spine for cord compression, patient is considered to be a poor surgical candidate by anesthesia service 11/30/2021, patient seen eval reexamined during the rounds labs reviewed medications reviewed, patient now appears to have paralysis and weakness worse on the right leg cannot move now left leg some movement antigravity is present, respiratory status stable denies any chest pain, patient is undergoing radiation therapy of the spine as well as on Decadron patient remains on diuretic anticoagulants patient has been cleared by cardiology for surgery however anesthesia refused 11/29/2021, patient seen eval reexamined the still have significant weakness in the right lower extremity as well as the left lower extremity, spine surgery have canceled as per recommendation anesthesia 11/28/2021, patient seen eval examined during the rounds labs reviewed medications reviewed care plan discussed, surgery which was planned earlier this morning have been canceled will put back on Xarelto due to 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, patient was already on before and was held due to anticipated surgery 11/27/2021, patient seen eval examined during the rounds labs reviewed medications reviewed, thyroid: Number spine MRI positive for osseous erosive lesion and soft tissue density with Stenosis and T4-T5 Level and Complete E ffacement and the Right T4-T5 and T5-T6 Neural Foramina Compartment with Tumor, Lumbar Spine Intact the Left Apical Pulmonary Mass Remains Stable, Spine Surgery Well Aware of These Findings Patient Is Tentatively Scheduled to OR for Tomorrow 11/26/2021, patient seen and evaluated examined during the rounds still have lower extremity weakness, patient to be evaluated by spine surgery, patient is not considered to be a candidate for interventional pain management, Estrace status however is stable patient remains on room air afebrile, oxygen saturation 96%, MRI of LS-spine pending, patient remains on Decadron Patient is a 61-year-old male with the primary is history of colon cancer came into the hospital with lower extremity weakness which has been going on for 1 week patient has been walking with the help of walker unable to stand by himself, he feels that he is more weak on the right leg compared to left leg, patient also tripped and fell down yesterday with some pain on the right lateral shoulder, patient denies any loss of consciousness or hemiparesis, denies any dizziness denies any chest pain no fever or chills patient sees Dr. Drew and Dr. Singh he is being treated with colon cancer prostate cancer and brain cancer he has some metastases in the lung and spine, computed tomography scan of the thoracic vertebra positive for large osseous lesion right side of the T5 vertebra and adjacent portion of the right fifth rib which was causing significant canal stenosis and likely spinal cord compression. In addition large left apical lung mass measuring about 8.77 cm also noted some irregular lesion of 2.3 cm also identified some bronchiectasis and right upper lobe 1.3 cm nodule noted. Patient denies any hemoptysis. Objective - Vital Signs Vital signs: Vital Signs Temp 98.4 F 12/01/21 04:29 Pulse 64 12/01/21 04:29 Resp 20 12/01/21 04:29 BP 129/76 12/01/21 04:29 Pulse Ox 97 12/01/21 04:29 Intake & Output 11/30/21 12/01/21 12/01/21 18:59 06:59 18:59 Intake Total 320 Output Total 825 150 Balance -825 320 -150 Intake: Oral 320 Output: Urine 825 150 Other: Voiding Method Urinal Urinal Urinal # Voids 4 - Exam - Constitutional General appearance: average body habitus, cooperative, disheveled - EENT Eyes: EOMI, PERRLA ENT: normal oropharynx Ears: bilateral: normal - Neck Carotids: bilateral: upstroke normal Thyroid: bilateral: normal size - Respiratory Respiratory: bilateral: CTA - Cardiovascular Rhythm: regular Heart sounds: normal: S1, S2 - Gastrointestinal General gastrointestinal: soft - Integumentary Integumentary: normal turgor - Neurologic Neurologic: CNII-XII intact - Musculoskeletal Musculoskeletal: generalized weakness, right sided weakness - Psychiatric Psychiatric: A&O x's 3, appropriate affect, intact judgment & insight - Labs CBC & Chem 7: 11/28/21 07:57 11/28/21 07:57 Assessment and Plan Assessment: Lung mass, Large left-sided 8.7 cm mass along with multiple sclerotic pulmonary nodules seen in the right apex as well 1.3 cm nodule in right upper lobe, 2.3 cm nodule in left upper lobe and lingular area Large mid thoracic vertebral mass of about 5.44.1 cm causing cord compression Lower extremity weakness more so on the right side compared to left side Status post fall COPD History of prostate: And brain cancer with metastases Plan: Continue physical therapy and rehab Continue radiation therapy of thoracic spine Surgery has been postponed and canceled by anesthesia Continue Decadron Continue direct total anticoagulants Radiation oncology following as well Will discuss with oncology about pulmonary diagnosis of lung mass likely can be evaluated on outpatient basis Physical therapy and rehab evaluation opted for radiation therapy We'll follow closely further recommendations pending plan of care as per clinical response of the patient Time with Patient: Greater than 30
[2021-12-01] MEDS: RIVAROXABAN 20 MG TAB PO SCH (15:24)
--- NOTE | 2021-12-01 19:01 | PN ---
PROGRESS NOTE DATE OF SERVICE: 12/01/2021 This 61-year-old gentleman who was admitted with significant weakness and T5 vertebral compression also had significant weakness of the legs. The left leg is affected more. PT/OT is evaluating the patient. Multiple consultants are following the patient closely. No chest pain. No palpitations. PHYSICAL EXAMINATION: Pulse is 82, blood pressure NTD, respiration 16. HEENT: Conjunctivae normal. CARDIOVASCULAR: S1, S2 muffled. RESPIRATION: A few rhonchi. ABDOMEN: Soft, non-tender. NERVOUS SYSTEM: Paraparesis. LABS: Reviewed. Hemoglobin 15.4. Other labs are reviewed. ASSESSMENT: 1. Bilateral weakness and paraplegia secondary to T5 vertebral mass. 2. Possible lung mass. 3. Lower extremity weakness. 4. Status post fall. 5. Gait dysfunction. 6. Chronic obstructive pulmonary disease. RECOMMENDATIONS AND DISCUSSION: I recommend to continue current medications, continue with the monitoring, symptomatic treatment. Closely follow. Dr. Rajput will follow. PT/OT evaluation; possible ECF rehab. Closely follow with multiple consultants. Prognosis guarded. MMODL / IJN: [id number] / [facility]
[2021-12-01] MEDS: traZODone HCL 100 MG TAB PO SCH (20:06)
[2021-12-02] MEDS ORDERED: polyethylene glycoL 3350 17 GM POWD.PACK PO PRN (11:44)
--- NOTE | 2021-12-02 11:54 | P.PN ---
Subjective Progress Note Date: 12/02/21 Principal diagnosis: B/L lower extremity weakness, s/p fall The patient is a 61 year-old male with a history of metastatic adenocarcinoma the sigmoid colon, initially treated with surgical resection followed by FOLFOX in 2012. He has been treated with SBRT under the care of Dr. Vernon for several pulmonary metastases from 2015 through 2018. In April 2021, the patient underwent radiotherapy to a right frontal brain metastasis which had been previously surgically resected. He subsequently required more recent radiotherapy to a second right frontal brain metastasis performed on November 06, 2021 under the care of Dr. Vernon. He recently moved to [place] and transf erred his care to Dr. Hamlin in medical oncology. He recently developed difficulty with ambulation and increasing pain in the upper right back. CT Imaging is consistent with spinal cord compression at T5. The patient reports that over the past week he has noticed further increase in lower extremity weakness. He reports having a fall at home, and presented to the hospital. He was having continued pain in the right upper back which radiates under the axilla. He has had no difficulty with loss of urinary control. He does admit to intermittent difficulty with constipation, but this is largely unchanged. Upon admission to the hospital, a CT of the thoracic and lumbar spine was performed on November 25. These studies revealed a large right paraspinal soft tissue mass at the level of T5 invading the spinal canal with likely cord compression. A large left apical lung mass was also visualized. The L-spine was largely unremarkable. The patient was subsequent he started on 6 mg dexamethasone 4 times a day, and has been evaluated by orthopedic spine surgery and oncology. MRI shows a large soft tissue component to tumor that extends from the T5 vertebral body causing destruction of the posterior elements of T5. The tumor is extradural and extends cranially to the level of T3-4 and caudally to mid T6 region. There is extension anteriorly from the CVJ that is abutting the posterior parietal plura, but there does not appear to be any extension into the lung at this time. There is pending instability of T5 due to the destruction. There is severe compression of the thoracic cord in this area due to tumor burden. An operative intervention is planned for : a tumor resection separation surgery with decompression and stabilization of T3 through T8 with T5 tumor resection. 11/27 - Education provided regarding his advanced metastatic cancer. The patient demonstrated good insight and judgement. Education also provided regarding his upcoming surgery. He understands the risks involved and wishes to proceed with his operation tomorrow. His goal after surgery is to work with physical therapy, go to rehab, and eventually return home. He is hopeful and extremely motivated to get his strength back so he can walk again. Once he is discharged he plans on continuing aggressive treatment for his cancer, including chemo and radiation. 11/28 - The patient's surgery was postponed. He has a large mass in the lung that is extending into the pulmonary artery. There is also pulmonary embolism that is seen and right heart strain. Cardiology was consulted for clearance. 2Decho and doppler study pending. The patient is worried about finding somewhere to live if they are unable to do surgery. He states he is unable to live alone now. Reassured patient that we would help find a facility to live in. Surgery to re-evaluate options tomorrow. 11/29 Patient was cleared for surgery by cardiology. However, after a lengthy discussion with the surgeon, the patient decided against having surgery due to it being too high risk. The patient is to begin radiation treatment today. His was told that he may never walk again. He stated he is alright with that. His goal is to just get enough strength back in his legs to move them around. He states he has good upper body strength and will be able to use a wheelchair to get around. After his radiation treatments are completed, he would like to go to rehab. Objective - Vital Signs Vital signs: Vital Signs Temp 97.9 F 12/02/21 04:16 Pulse 64 12/02/21 04:16 Resp 16 12/02/21 04:16 BP 109/74 12/02/21 04:16 Pulse Ox 96 12/02/21 04:16 Intake & Output 12/01/21 12/02/21 12/02/21 18:59 06:59 18:59 Output Total 350 250 Balance -350 -250 Output: Urine 350 250 Other: Voiding Method Urinal Urinal - Exam General: Patient awake alert and oriented x 3. No acute distress. HEENT: Head is atraumatic, normocephalic Neck is supple. Sclerae are clear. Pupils equal, round and reactive to light bilaterally. CV: Heart regular in rate and rhythm positive S1 and S2. No S3. No S4. No clicks, rubs or murmurs. No JVD. Peripheral pulses equal. 2/4 Lungs: Clear to auscultation bilaterally. No wheezes rales or rhonchi. Respirations even and nonlabored. No intercostal retractions. Abdomen/GI: Soft. Bowel sounds present in all 4 quadrants. Bowel sounds normoac tive. No abdominal tenderness. : Voiding with out difficulty, clear yellow urine noted in urinal Musculoskeletal/ Right LE flaccid, increased weakness to Left LE Vascular: Radial pulses equal. 2/4. Skin: No rash. Neurologic: Awake, alert and oriented times 3. Psychiatric: Appropriate mood and affect. - Labs CBC & Chem 7: 11/28/21 07:57 11/28/21 07:57 Assessment and Plan Plan: Symptoms * Pain - Patients states his pain is well controlled, continue [place], Toradol, Tylenol, and Motrin PRN. He has chronic pain and takes [place] at home. * Fatigue - patient states he has chronic fatigue and low energy secondary to cancer treaments * SOB - denies, on RA * Insomnia - Continue Trazodone, patient has intermittent insomnia, takes Trazodone at home, states he has been sleeping well * N/V - denies, PRN Compazine and Zofran are available * Anxiety/Depression - denies anxiety there is PRN Ativan available, patient denies nay depression * Confusion/agitation - none * Appetite/dysphagia/weight loss - Patient states his appetite is up and down at baseline. He denies any dysphagia. He has not had significant weight loss in the last month. * Constipation - Reports chronic constipation. Colace is ordered. LBM 2 days ago per patietn. Miralax PRN added. * Incontinence - denies, voiding per urinal * Itch - denies Goal/Plan - The patient now has the complete flaccid paralysis of right lower extremity some strength on the left side however is present, patient is getting radiation therapy of thoracic spine for cord compression, patient is considered to be a poor surgical candidate. The patient has 2 more Radiation treatments scheduled, today and Thursday. His goal is then to go the [facility] for rehab. Code Status Patient wishes to remain a full code. Viola Ramirez [facility] Palliative [facility] [id number] Email: [email or web address] Time with Patient: Less than 30
--- NOTE | 2021-12-02 12:11 | P.PN ---
Subjective Progress Note Date: 12/02/21 Principal diagnosis: Lung mass, Large left-sided 8.7 cm mass along with multiple sclerotic pulmonary nodules seen in the right apex as well 1.3 cm nodule in right upper lobe, 2.3 cm nodule in left upper lobe and lingular area T5 vertebral mass of about 5.44.1 cm causing cord compression Lower extremity weakness more so on the right side compared to left side Status post fall COPD History of prostate: And brain cancer with metastases 12/02/2021, patient seen eval examined, earlier today had radiation therapy for the spine exhausted afterwards, breathing is stable denies any chest pain denies any cough or sputum production, patient continued to have flaccid pelvis is off right lower extremity stable strength on the left side patient is scheduled for physical therapy later on today 12/01/2021, patient seen eval reexamined during the rounds labs reviewed medications reviewed care plan discussed, patient now has the complete flaccid paralysis of right lower extremity some strength on the left side however is present, patient is getting radiation therapy Thursday to Thursday of thoracic spine for cord compression, patient is considered to be a poor surgical candidate by anesthesia service 11/30/2021, patient seen eval reexamined during the rounds labs reviewed medications reviewed, patient now appears to have paralysis and weakness worse on the right leg cannot move now left leg some movement antigravity is present, respiratory status stable denies any chest pain, patient is undergoing radiation therapy of the spine as well as on Decadron patient remains on diuretic anticoagulants patient has been cleared by cardiology for surgery however anesthesia refused 11/29/2021, patient seen eval reexamined the still have significant weakness in the right lower extremity as well as the left lower extremity, spine surgery have canceled as per recommendation anesthesia 11/28/2021, patient seen eval examined during the rounds labs reviewed medications reviewed care plan discussed, surgery which was planned earlier this morning have been canceled will put back on Xarelto due to 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, patient was already on before and was held due to anticipated surgery 11/27/2021, patient seen eval examined during the rounds labs reviewed medications reviewed, thyroid: Number spine MRI positive for osseous erosive lesion and soft tissue density with Stenosis and T4-T5 Level and Complete Effacement and the Right T4-T5 and T5-T6 Neural Foramina Compartment with Tumor, Lumbar Spine Intact the Left Apical Pulmonary Mass Remains Stable, Spine Surgery Well Aware of These Findings Patient Is Tentatively Scheduled to OR for Tomorrow 11/26/2021, patient seen and evaluated examined during the rounds still have lower extremity weakness, patient to be evaluated by spine surgery, patient is not considered to be a candidate for interventional pain management, Estrace status however is stable patient remains on room air afebrile, oxygen saturation 96%, MRI of LS-spine pending, patient remains on Decadron Patient is a 61-year-old male with the primary is history of colon cancer came into the hospital with lower extremity weakness which has been going on for 1 week patient has been walking with the help of walker unable to stand by himself, he feels that he is more weak on the right leg compared to left leg, patient also tripped and fell down yesterday with some pain on the right lateral shoulder, patient denies any loss of consciousness or hemiparesis, denies any dizziness denies any chest pain no fever or chills patient sees Dr. Drew and Dr. Singh he is being treated with colon cancer prostate cancer and brain cancer he has some metastases in the lung and spine, computed tomography scan of the thoracic vertebra positive for large osseous lesion right side of the T5 vertebra and adjacent portion of the right fifth rib which was causing significant canal stenosis and likely spinal cord compression. In addition lar ge left apical lung mass measuring about 8.77 cm also noted some irregular lesion of 2.3 cm also identified some bronchiectasis and right upper lobe 1.3 cm nodule noted. Patient denies any hemoptysis. Objective - Vital Signs Vital signs: Vital Signs Temp 97.9 F 12/02/21 04:16 Pulse 64 12/02/21 04:16 Resp 16 12/02/21 04:16 BP 109/74 12/02/21 04:16 Pulse Ox 96 12/02/21 04:16 Intake & Output 12/01/21 12/02/21 12/02/21 18:59 06:59 18:59 Output Total 350 250 Balance -350 -250 Output: Urine 350 250 Other: Voiding Method Urinal Urinal - Exam - Constitutional General appearance: average body habitus, cooperative, disheveled - EENT Eyes: EOMI, PERRLA ENT: normal oropharynx Ears: bilateral: normal - Neck Carotids: bilateral: upstroke normal Thyroid: bilateral: normal size - Respiratory Respiratory: bilateral: CTA - Cardiovascular Rhythm: regular Heart sounds: normal: S1, S2 - Gastrointestinal General gastrointestinal: soft - Integumentary Integumentary: normal turgor - Neurologic Neurologic: CNII-XII intact - Musculoskeletal Musculoskeletal: generalized weakness, right sided weakness - Psychiatric Psychiatric: A&O x's 3, appropriate affect, intact judgment & insight - Labs CBC & Chem 7: 11/28/21 07:57 11/28/21 07:57 Assessment and Plan Assessment: Lung mass, Large left-sided 8.7 cm mass along with multiple sclerotic pulmonary nodules seen in the right apex as well 1.3 cm nodule in right upper lobe, 2.3 cm nodule in left upper lobe and lingular area Large mid thoracic vertebral mass of about 5.44.1 cm causing cord compression Lower extremity weakness more so on the right side compared to left side Status post fall COPD History of prostate: And brain cancer with metastases Plan: Continue physical therapy and rehab Continue radiation therapy of thoracic spine Surgery has been postponed and canceled by anesthesia Continue Decadron Continue direct total anticoagulants Radiation oncology following as well Will discuss with oncology about pulmonary diagnosis of lung mass likely can be evaluated on outpatient basis Physical therapy and rehab evaluation opted for radiation therapy We'll follow closely further recommendations pending plan of care as per clinical response of the patient Time with Patient: Greater than 30
[2021-12-02] MEDS: DOCUSATE 100 MG CAP PO SCH ×2 (12:19→19:28)
[2021-12-02] MEDS: DEXAMETHASONE SOD PHOSPHATE 4 MG/ML 1 ML VIAL IV SCH ×4 (12:19→23:04)
[2021-12-02] MEDS: amLODIPine 2.5 MG TAB PO SCH (12:19)
[2021-12-02] MEDS: PRAVASTATIN SODIUM 80 MG TAB PO SCH (12:20)
[2021-12-02] MEDS: lisinopriL 10 MG TAB PO SCH (12:20)
[2021-12-02] MEDS: RIVAROXABAN 20 MG TAB PO SCH (13:39)
[2021-12-02] MEDS ORDERED: bisacodyL 10 MG SUPP RECTAL STA (13:52)
[2021-12-02] MEDS: traZODone HCL 100 MG TAB PO SCH (19:28)
[2021-12-02] MEDS: HYDROcodone/APAP 10-325MG 1 EACH TAB PO PRN (19:28)
[2021-12-03] MEDS: DEXAMETHASONE SOD PHOSPHATE 4 MG/ML 1 ML VIAL IV SCH ×2 (05:12→11:32)
[2021-12-03] MEDS ORDERED: NA PHOS,M-B/NA PHOS,DI-BA 133 ML ENEMA RECTAL STA (08:59)
[2021-12-03] MEDS: PRAVASTATIN SODIUM 80 MG TAB PO SCH (09:03)
[2021-12-03] MEDS: DOCUSATE 100 MG CAP PO SCH (09:04)
[2021-12-03] MEDS: amLODIPine 2.5 MG TAB PO SCH (09:04)
[2021-12-03] MEDS: lisinopriL 10 MG TAB PO SCH (09:04)
--- NOTE | 2021-12-03 09:47 | PN ---
PROGRESS NOTE This is a 61-year-old -[place] male with thoracic mass secondary to metastatic colon cancer. He has increased range of motion of his left leg. He has right leg numbness, difficulty with movement. ASSESSMENT: Metastatic adenocarcinoma of the colon with thoracic mass. Condition stable. Follow up in next 24 to 48 hours. last chemo and then the rehab center will have to be done. Prognosis guarded. MMODL / IJN: [id number] /
--- NOTE | 2021-12-03 10:21 | P.PN ---
Subjective Progress Note Date: 12/03/21 Principal diagnosis: Large left-sided mass along with multiple sclerotic pulmonary nodules seen in the right apex, nodule in right upper lobe, as well as nodule in left upper lobe and lingular area T5 vertebral mass causing cord compression Lower extremity weakness more so on the right side compared to left side Status post fall COPD The patient is a 61 year-old male with a history of metastatic adenocarcinoma the sigmoid colon, initially treated with surgical resection followed by FOLFOX in 2012. He has been treated with SBRT under the care of Dr. Vernon for sever al pulmonary metastases from 2015 through 2019. In April 2021, the patient underwent radiotherapy to a right frontal brain metastasis which had been previously surgically resected. He subsequently required more recent radiotherapy to a second right frontal brain metastasis performed on November 06, 2021 under the care of Dr. Vernon. He recently moved to [place] and transferred his care to Dr. Hamlin in medical oncology. He recently developed difficulty with ambulation and increasing pain in the upper right back. CT Imaging is consistent with spinal cord compression at T5. The patient reports that over the past week he has noticed further increase in lower extremity weakness. He reports having a fall at home, and presented to the hospital. He was having continued pain in the right upper back which radiates under the axilla. He has had no difficulty with loss of urinary contr ol. He does admit to intermittent difficulty with constipation, but this is largely unchanged. Upon admission to the hospital, a CT of the thoracic and lumbar spine was performed on November 25. These studies revealed a large right paraspinal soft tissue mass at the level of T5 invading the spinal canal with likely cord compression. A large left apical lung mass was also visualized. The L-spine was largely unremarkable. The patient was subsequent he started on 6 mg dexamethasone 4 times a day, and has been evaluated by orthopedic spine surgery and oncology. MRI shows a large soft tissue component to tumor that extends from the T5 vertebral body causing destruction of the posterior elements of T5. The tumor is extradural and extends cranially to the level of T3-4 and caudally to mid T6 region. There is extension anteriorly from the CVJ that is abutting the posterior parietal plura, but there does not appear to be any extension into the lung at this time. There is pending instability of T5 due to the destruction. There is severe compression of the thoracic cord in this area due to tumor burden. An operative intervention was planned: a tumor resection separation surgery with decompression and stabilization of T3 through T8 with T5 tumor resection. 11/27 - Education provided regarding his advanced metastatic cancer. The patient demonstrated good insight and judgement. Education also provided regarding his upcoming surgery. He understands the risks involved and wishes to proceed with his operation tomorrow. His goal after surgery is to work with physical therapy, go to rehab, and eventually return home. He is hopeful and extremely motivated to get his strength back so he can walk again. Once he is discharged he plans on continuing aggressive treatment for his cancer, including chemo and radiation. 11/28 - The patient's surgery was postponed. He has a large mass in the lung that is extending into the pulmonary artery. There is also pulmonary embolism that is seen and right heart strain. Cardiology was consulted for clearance. 2Decho and doppler study pending. The patient is worried about finding somewhere to live if they are unable to do surgery. He states he is unable to live alone now. Reassured patient that we would help find a facility to live in. Surgery to re-evaluate options tomorrow. 11/29 Patient was cleared for surgery by cardiology. However, after a lengthy discussion with the surgeon, the patient decided against having surgery due to it being too high risk. The patient is to begin radiation treatment today. His was told that he may never walk again. He stated he is alright with that. His goal is to just get enough strength back in his legs to move them around. He states he has good upper body strength and will be able to use a wheelchair to get around. After his radiation treatments are completed, he would like to go to rehab. 12/03 The patient has flaccid paralysis of right lower extremity, but has retained some strength/movement on the left lower extremity. The patient is getting radiation therapy of thoracic spine for cord compression, patient is considered to be a poor surgical candidate. Objective - Vital Signs Vital signs: Vital Signs Temp 97.6 F 12/03/21 07:50 Pulse 86 12/03/21 07:50 Resp 18 12/03/21 07:50 BP 101/70 12/03/21 07:50 Pulse Ox 97 12/03/21 07:50 Intake & Output 12/02/21 12/03/21 12/03/21 18:59 06:59 18:59 Output Total 650 400 Balance -650 -400 Output: Urine 650 400 Other: Voiding Method Urinal Urinal Urinal # Voids 4 - Exam General: Patient awake alert and oriented x 3. No acute distress. HEENT: Head is atraumatic, normocephalic Neck is supple. Sclerae are clear. Pupils equal, round and reactive to light bilaterally. CV: Heart regular in rate and rhythm positive S1 and S2. No S3. No S4. No clicks, rubs or murmurs. No JVD. Peripheral pulses equal. 2/4 Lungs: Clear to auscultation bilaterally. No wheezes rales or rhonchi. Respirations even and nonlabored. No intercostal retractions. Abdomen/GI: Bowel sounds present in all 4 quadrants. Bowel sounds normoactive. Mild distention and abdominal tenderness press. : Voiding with out difficulty, clear yellow urine noted in urinal Musculoskeletal/ Right LE flaccid, increased weakness to Left LE Vascular: Radial pulses equal. 2/4. Skin: No rash. Neurologic: Awake, alert and oriented times 3. Psychiatric: Appropriate mood and affect. - Labs CBC & Chem 7: 11/28/21 07:57 11/28/21 07:57 Assessment and Plan Plan: Symptoms * Pain - Patients states his pain is well controlled, continue [place], Toradol, Tylenol, and Motrin PRN. He has chronic pain and takes [place] at home. * Fatigue - patient states he has chronic fatigue and low energy secondary to cancer treaments * SOB - denies, on RA * Insomnia - Continue Trazodone, patient has intermittent insomnia, takes Trazodone at home, states he has been sleeping well * N/V - denies, PRN Compazine is ordered prn * Anxiety/Depression - denies anxiety there is PRN Ativan available prn, patient denies any depression * Confusion/agitation - none * Appetite/dysphagia/weight loss - Patient states his appetite is up and down at baseline. He denies any dysphagia. He has not had significant weight loss in the last month. * Constipation - Reports chronic constipation. Colace is ordered. Miralax PRN added. Report feeling very uncomfortable. No BM for 3 days. Fleet enema ordered x 1 * Incontinence - denies, voiding per urinal * Itch - denies Goal/Plan - The patient now has the complete flaccid paralysis of right lower extremity some strength on the left side however is present, patient is getting radiation therapy of thoracic spine for cord compression, patient is considered to be a poor surgical candidate. The patient has 1 more Radiation treatments scheduled for today. His goal is then to go the [facility] for rehab. Discharge planning in process. Code Status Patient wishes to remain a full code. Viola Ramirez [facility] Palliative Care [facility] [id number] Email: [email or web address] Time with Patient: Less than 30
--- NOTE | 2021-12-03 11:59 | P.PN ---
Subjective Progress Note Date: 12/03/21 Principal diagnosis: spinal cord compression with significantly decreased lower extremity function, metastatic colon adenocarcinoma In follow-up today patient reports that he has still not been able to stand with the use of a walker, explains of extreme tiredness. He states he still has sensation of passing flatus, needing to have a bowel movement and urinating. Pain is fairly well managed, now needing something for constipation. Objective - Vital Signs Vital signs: Vital Signs Temp 97.6 F 12/03/21 07:50 Pulse 86 12/03/21 07:50 Resp 18 12/03/21 07:50 BP 101/70 12/03/21 07:50 Pulse Ox 97 12/03/21 07:50 Intake & Output 12/02/21 12/03/21 12/03/21 18:59 06:59 18:59 Output Total 650 400 100 Balance -650 -400 -100 Output: Urine 650 400 100 Other: Voiding Method Urinal Urinal Urinal # Voids 4 - Constitutional General appearance: Present: cooperative, no acute distress, thin - EENT Eyes: Present: anicteric sclerae, EOMI ENT: Present: hearing grossly normal - Respiratory Details: respirations even and unlabored at rest - Peripheral edema leg Peripheral Edema: bilateral: None - Gastrointestinal General gastrointestinal: Present: soft - Neurologic Neurologic Comment(s): patient is not able to flex at the hips against gravity and with application of any resistance, plantar flexion significantly weak, left greater than right - Psychiatric Psychiatric: Present: A&O x's 3, appropriate affect, intact judgment & insight - Labs CBC & Chem 7: 11/28/21 07:57 11/28/21 07:57 Assessment and Plan (1) Cord compression Current Visit: Yes Status: Acute Priority: High Code(s): G95.20 - UNSPECIFIED CORD COMPRESSION SNOMED Code(s): 19917643 (2) Lower extremity weakness Current Visit: Yes Status: Acute Priority: High Code(s): R29.898 - OTH SYMPTOMS AND SIGNS INVOLVING THE MUSCULOSKELETAL SYSTEM SNOMED Code(s): 510488960 (3) Stage IV carcinoma of colon Current Visit: Yes Status: Acute Priority: High Code(s): C18.9 - MALIGNANT NEOPLASM OF COLON, UNSPECIFIED SNOMED Code(s): 748219456 Plan: Patient has chosen to forego orthopedic intervention for cord compression. Steroids have further been adjusted because of persistent and possibly slight progression of symptoms. Having radiation currently and there may be some rebound swelling worsening symptoms. PPI to reduce risk of steroid induced gastritis. patient maintains control of bowels and bladder. Patient is trying to work with PT/OT. There is planned for rehabilitation after discharge. All cancer treatment will be on hold until patient has been discharged from rehabilitation. MRI of the brain ordered for brain metastases and possible planning for radiation treatment of the same. Patient does have a history of previous radiation to the brain. case discussed briefly with Radiation Oncologist. Severe constipation. Likely multifactorial-decreased mobility, pain medications. Patient has received enema. Changed stool softener to senna lax/stool softener. MiraLAX as ordered when necessary. Doctor attests: I performed a history and physical examination of this patient, developed impression and plan of care, discussed with dictator. I agree with dictators note, documented as a scribe.
[2021-12-03] MEDS: RIVAROXABAN 20 MG TAB PO SCH (16:08)
[2021-12-03] MEDS: HYDROcodone/APAP 10-325MG 1 EACH TAB PO PRN (16:08)
[2021-12-03] MEDS: PANTOPRAZOLE 40 MG TABLET PO SCH ×2 (16:08→16:10)
--- NOTE | 2021-12-03 17:21 | P.PN ---
Subjective Progress Note Date: 12/03/21 Principal diagnosis: Lung mass, Large left-sided 8.7 cm mass along with multiple sclerotic pulmonary nodules seen in the right apex as well 1.3 cm nodule in right upper lobe, 2.3 cm nodule in left upper lobe and lingular area T5 vertebral mass of about 5.44.1 cm causing cord compression Lower extremity weakness more so on the right side compared to left side Status post fall COPD History of prostate: And brain cancer with metastases 12/03/2021, patient seen eval examined during the rounds labs reviewed medications reviewed care plan discussed, respiratory status remains stable patient has been getting radiation therapy, has been complaining of severe constipation and edema has been given, patient continued to have flaccid pelvis of the right lower extremity left moving well 12/02/2021, patient seen eval examined, earlier today had radiation therapy for the spine exhausted afterwards, breathing is stable denies any chest pain denies any cough or sputum production, patient continued to have flaccid pelvis is off right lower extremity stable strength on the left side patient is scheduled for physical therapy later on today 12/01/2021, patient seen eval reexamined during the rounds labs reviewed medications reviewed care plan discussed, patient now has the complete flaccid paralysis of right lower extremity some strength on the left side however is present, patient is getting radiation therapy Thursday to Thursday of thoracic spine for cord compression, patient is considered to be a poor surgical candidate by anesthesia service 11/30/2021, patient seen eval reexamined during the rounds labs reviewed medications reviewed, patient now appears to have paralysis and weakness worse on the right leg cannot move now left leg some movement antigravity is present, respiratory status stable denies any chest pain, patient is undergoing radiation therapy of the spine as well as on Decadron patient remains on diuretic anticoagulants patient has been cleared by cardiology for surgery however anesthesia refused 11/29/2021, patient seen eval reexamined the still have significant weakness in the right lower extremity as well as the left lower extremity, spine surgery have canceled as per recommendation anesthesia 11/28/2021, patient seen eval examined during the rounds labs reviewed medications reviewed care plan discussed, surgery which was planned earlier this morning have been canceled will put back on Xarelto due to 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, patient was already on before and was held due to anticipated surgery 11/27/2021, patient seen eval examined during the rounds labs reviewed medications reviewed, thyroid: Number spine MRI positive for osseous erosive lesion and soft tissue density with Stenosis and T4-T5 Level and Complete Effacement and the Right T4-T5 and T5-T6 Neural Foramina Compartment with Tumor, Lumbar Spine Intact the Left Apical Pulmonary Mass Remains Stable, Spine Surgery Well Aware of These Findings Patient Is Tentatively Scheduled to OR for Tomorrow 11/26/2021, patient seen and evaluated examined during the rounds still have lower extremity weakness, patient to be evaluated by spine surgery, patient is not considered to be a candidate for interventional pain management, Estrace status however is stable patient remains on room air afebrile, oxygen saturation 96%, MRI of LS-spine pending, patient remains on Decadron Patient is a 61-year-old male with the primary is history of colon cancer came into the hospital with lower extremity weakness which has been going on for 1 week patient has been walking with the help of walker unable to stand by himself, he feels that he is more weak on the right leg compared to left leg, patient also tripped and fell down yesterday with some pain on the right lateral shoulder, patient denies any loss of consciousness or hemiparesis, denies any dizziness denies any chest pain no fever or chills patient sees Dr. Drew and Dr. Singh he is being treated with colon cancer prostate cancer and brain cancer he has some metastases in the lung and spine, computed tomography scan of the thoracic vertebra positive for large osseous lesion right side of the T5 v ertebra and adjacent portion of the right fifth rib which was causing significant canal stenosis and likely spinal cord compression. In addition large left apical lung mass measuring about 8.77 cm also noted some irregular lesion of 2.3 cm also identified some bronchiectasis and right upper lobe 1.3 cm nodule noted. Patient denies any hemoptysis. Objective - Vital Signs Vital signs: Vital Signs Temp 98.0 F 12/03/21 12:07 Pulse 92 12/03/21 12:07 Resp 18 12/03/21 12:07 BP 107/70 12/03/21 12:07 Pulse Ox 97 12/03/21 12:07 Intake & Output 12/02/21 12/03/21 12/03/21 18:59 06:59 18:59 Output Total 650 400 100 Balance -650 -400 -100 Output: Urine 650 400 100 Other: Voiding Method Urinal Urinal Urinal # Voids 4 # Bowel Movements 1 - Exam - Constitutional General appearance: average body habitus, cooperative, disheveled - EENT Eyes: EOMI, PERRLA ENT: normal oropharynx Ears: bilateral: normal - Neck Carotids: bilateral: upstroke normal Thyroid: bilateral: normal size - Respiratory Respiratory: bilateral: CTA - Cardiovascular Rhythm: regular Heart sounds: normal: S1, S2 - Gastrointestinal General gastrointestinal: soft - Integumentary Integumentary: normal turgor - Neurologic Neurologic: CNII-XII intact - Musculoskeletal Musculoskeletal: generalized weakness, right sided weakness - Psychiatric Psychiatric: A&O x's 3, appropriate affect, intact judgment & insight - Labs CBC & Chem 7: 11/28/21 07:57 11/28/21 07:57 Assessment and Plan Assessment: Lung mass, Large left-sided 8.7 cm mass along with multiple sclerotic pulmonary nodules seen in the right apex as well 1.3 cm nodule in right upper lobe, 2.3 cm nodule in left upper lobe and lingular area Large mid thoracic vertebral mass of about 5.44.1 cm causing cord compression Lower extremity weakness more so on the right side compared to left side Status post fall COPD History of prostate: And brain cancer with metastases Plan: Continue physical therapy and rehab Continue radiation therapy of thoracic spine Surgery has been postponed and canceled by anesthesia Continue Decadron Continue direct total anticoagulants Radiation oncology following as well lung mass likely can be evaluated on outpatient basis however given the increase in nature of the tumor supportive care is the best option Physical therapy and rehab evaluation opted for radiation therapy We'll follow closely further recommendations pending plan of care as per clinical response of the patient Time with Patient: Greater than 30
[2021-12-03] MEDS: DEXAMETHASONE SOD PHOSPHATE 10 MG/ML 1 ML VIAL IVP SCH ×2 (18:09→23:27)
[2021-12-03] MEDS: SENNOSIDES-DOCUSATE SODIUM 1 EACH TAB PO SCH (20:32)
[2021-12-03] MEDS: traZODone HCL 100 MG TAB PO SCH (20:32)
[2021-12-04] MEDS: DEXAMETHASONE SOD PHOSPHATE 10 MG/ML 1 ML VIAL IVP SCH ×4 (05:55→23:32)
--- NOTE | 2021-12-04 08:56 | PN ---
PROGRESS NOTE This is a 61-year-old white male with bilateral leg weakness, unable to really move either leg due to severe thoracic cancer, spinal levels. Receiving radiation over the next 3 days on a daily basis can improve his walking. Cardiovascular S1-S2. Hematology negative Homans. Psych fair mood and affect. Neurologic alert and oriented x3. Ophthalmologic: Pupils equal, round, reactive. Continue with radiation for the next 3 days, PT/OT. Possible shelter placement after radiation is finished. Prognosis guarded. MMODL / IJN: [id number] /
[2021-12-04] MEDS: amLODIPine 2.5 MG TAB PO SCH (08:58)
[2021-12-04] MEDS: lisinopriL 10 MG TAB PO SCH (08:58)
[2021-12-04] MEDS: SENNOSIDES-DOCUSATE SODIUM 1 EACH TAB PO SCH ×2 (08:58→20:32)
[2021-12-04] MEDS: PRAVASTATIN SODIUM 80 MG TAB PO SCH (08:59)
[2021-12-04] MEDS: PANTOPRAZOLE 40 MG TABLET PO SCH ×2 (08:59→17:32)
[2021-12-04] MEDS: HYDROcodone/APAP 10-325MG 1 EACH TAB PO PRN (12:29)
--- NOTE | 2021-12-04 12:55 | P.PN ---
Subjective Progress Note Date: 12/04/21 Principal diagnosis: Large left-sided mass along with multiple sclerotic pulmonary nodules seen in the right apex, nodule in right upper lobe, as well as nodule in left upper lobe and lingular area T5 vertebral mass causing cord compression Lower extremity weakness more so on the right side compared to left side Status post fall COPD The patient is a 61 year-old male with a history of metastatic adenocarcinoma the sigmoid colon, initially treated with surgical resection followed by FOLFOX in 2012. He has been treated with SBRT under the care of Dr. Vernon for several pulmonary metastases from 2015 through 2018. In April 2021, the patient underwent radiotherapy to a right frontal brain metastasis which had been previously surgically resected. He subsequently required more recent radiotherapy to a second right frontal brain metastasis performed on November 06, 2021 under the care of Dr. Vernon. He recently moved to [place] and transferred his care to Dr. Hamlin in medical oncology. He recently developed difficulty with ambulation and increasing pain in the upper right back. CT Imaging is consistent with spinal cord compression at T5. The patient reports that over the past week he has noticed further increase in lower extremity weakness. He reports having a fall at home, and presented to the hospital. He was having continued pain in the right upper back which radiates under the axilla. He has had no difficulty with loss of urinary contro l. He does admit to intermittent difficulty with constipation, but this is largely unchanged. Upon admission to the hospital, a CT of the thoracic and lumbar spine was performed on November 25. These studies revealed a large right paraspinal soft tissue mass at the level of T5 invading the spinal canal with likely cord compression. A large left apical lung mass was also visualized. The L-spine was largely unremarkable. The patient was subsequent he started on 6 mg dexamethasone 4 times a day, and has been evaluated by orthopedic spine surgery and oncology. MRI shows a large soft tissue component to tumor that extends from the T5 vertebral body causing destruction of the posterior elements of T5. The tumor is extradural and extends cranially to the level of T3-4 and caudally to mid T6 region. There is extension anteriorly from the CVJ that is abutting the posterior parietal plura, but there does not appear to be any extension into the lung at this time. There is pending instability of T5 due to the destruction. There is severe compression of the thoracic cord in this area due to tumor burden. An operative intervention was planned: a tumor resection separation surgery with decompression and stabilization of T3 through T8 with T5 tumor resection. 11/27 - Education provided regarding his advanced metastatic cancer. The patient demonstrated good insight and judgement. Education also provided regarding his upcoming surgery. He understands the risks involved and wishes to proceed with his operation tomorrow. His goal after surgery is to work with physical therapy, go to rehab, and eventually return home. He is hopeful and extremely motivated to get his strength back so he can walk again. Once he is discharged he plans on continuing aggressive treatment for his cancer, including chemo and radiation. 11/28 - The patient's surgery was postponed. He has a large mass in the lung that is extending into the pulmonary artery. There is also pulmonary embolism that is seen and right heart strain. Cardiology was consulted for clearance. 2Decho and doppler study pending. The patient is worried about finding somewhere to live if they are unable to do surgery. He states he is unable to live alone now. Reassured patient that we would help find a facility to live in. Surgery to re-evaluate options tomorrow. 11/29 Patient was cleared for surgery by cardiology. However, after a lengthy discussion with the surgeon, the patient decided against having surgery due to it being too high risk. The patient is to begin radiation treatment today. His was told that he may never walk again. He stated he is alright with that. His goal is to just get enough strength back in his legs to move them around. He states he has good upper body strength and will be able to use a wheelchair to get around. After his radiation treatments are completed, he would like to go to rehab. 12/03 The patient has flaccid paralysis of right lower extremity, but has retained some strength/movement on the left lower extremity. The patient is getting radiation therapy of thoracic spine for cord compression, patient is considered to be a poor surgical candidate. Objective - Vital Signs Vital signs: Vital Signs Temp 98.0 F 12/04/21 11:52 Pulse 91 12/04/21 11:52 Resp 18 12/04/21 11:52 BP 104/66 12/04/21 11:52 Pulse Ox 96 12/04/21 11:52 Intake & Output 12/03/21 12/04/21 12/04/21 18:59 06:59 18:59 Intake Total 580 300 Output Total 900 200 470 Balance -320 100 -470 Intake: Oral 580 300 Output: Urine 900 200 470 Other: Voiding Method Urinal Urinal Urinal # Bowel Movements 1 - Exam General: Patient awake alert and oriented x 3. No acute distress. HEENT: Head is atraumatic, normocephalic Neck is supple. Sclerae are clear. Pupils equal, round and reactive to light bilaterally. CV: Heart regular in rate and rhythm positive S1 and S2. No S3. No S4. No clicks, rubs or murmurs. No JVD. Peripheral pulses equal. 2/4 Lungs: Clear to auscultation bilaterally. No wheezes rales or rhonchi. Res pirations even and nonlabored. No intercostal retractions. Abdomen/GI: Bowel sounds present in all 4 quadrants. Bowel sounds normoactive. No abdominal pain or tenderness. : Voiding without difficulty Musculoskeletal/ Right LE flaccid, increased weakness to Left LE Vascular: Radial pulses equal. 2/4. Skin: No rash. Neurologic: Awake, alert and oriented times 3. Psychiatric: Appropriate mood and affect. - Labs CBC & Chem 7: 11/28/21 07:57 11/28/21 07:57 Assessment and Plan Plan: Symptoms * Pain - Patients states his pain is well controlled, continue [place], Toradol, Tylenol, and Motrin PRN. He has chronic pain and takes [place] at home. * Fatigue - patient states he has chronic fatigue and low energy secondary to cancer treaments * SOB - denies, on RA * Insomnia - Continue Trazodone, patient has intermittent insomnia, takes Trazodone at home, states he has been sleeping well * N/V - denies, PRN Compazine is ordered prn * Anxiety/Depression - denies anxiety there is PRN Ativan available prn, patient denies any depression * Confusion/agitation - none * Appetite/dysphagia/weight loss - Patient states his appetite is up and down at baseline. He denies any dysphagia. He has not had significant weight loss in the last month. * Constipation - Reports chronic constipation. Colace is ordered. Miralax PRN added. Reported BM after enema yesterday. Feels relieved today. * Incontinence - denies, voiding per urinal * Itch - denies Goal/Plan - Patient states he is still very weak and unable to stand with a walker. He is doing for his radiation treatment and a MRI this afternoon. Plans on being discharged soon to rehab. However, per outpatient case manager -Miguel declined patient. [facility] Referrals sent to [facility] [place] and [place]. Case jorge will continue work on a d/c plan for the pt. Code Status Patient wishes to remain a full code. Viola Ramirez [facility] Palliative Care [facility] [id number] Email: [email or web address] Time with Patient: Less than 30
--- NOTE | 2021-12-04 13:57 | P.PN ---
Subjective Progress Note Date: 12/04/21 Principal diagnosis: Cord compression Continue on radiation, some improvement Objective - Vital Signs Vital signs: Vital Signs Temp 97.6 F 12/04/21 08:00 Pulse 100 12/04/21 08:00 Resp 17 12/04/21 08:00 BP 113/74 12/04/21 08:00 Pulse Ox 98 12/04/21 08:00 Intake & Output 12/03/21 12/04/21 12/04/21 18:59 06:59 18:59 Intake Total 580 300 Output Total 900 200 220 Balance -320 100 -220 Intake: Oral 580 300 Output: Urine 900 200 220 Other: Voiding Method Urinal Urinal # Bowel Movements 1 - Exam - Constitutional General appearance: no acute distress - EENT Eyes: EOMI, PERRLA ENT: hearing grossly normal, normal oropharynx - Neck Neck: no lymphadenopathy Thyroid: bilateral: normal size - Respiratory Respiratory: bilateral: CTA - Cardiovascular Rhythm: regular Heart sounds: normal: S1, S2 - Gastrointestinal General gastrointestinal: normal bowel sounds, soft - Integumentary Integumentary: normal - Neurologic Decrease sensory to right leg, thigh and all below ribcage in comparison to left. He still has bladder and bowel control Neurologic: CNII-XII intact - Musculoskeletal Musculoskeletal: right sided weakness (RLE prox weakness 2-2+/5) - Labs CBC & Chem 7: 11/28/21 07:57 11/28/21 07:57 Assessment and Plan Plan: Comments: Xray lumbar and Tspine, CT scans lumbar and T spine reports reviewed Assessment and Plan (1) Cord compression Narrative/Plan: The pt is presenting with impending cord compression at T5, due to progression of his known metastatic colon ca. He does b/l LE weakness, R > L, with sensation mostly maintained at this time. Sensation is decreased on right still after interventions from ribcage below - IV steroids - Rad onc and Ortho spine following - Patient has refused surgical intervention and proceeded with palliative radiation Current Visit: Yes Status: Acute Code(s): G95.20 - UNSPECIFIED CORD COMPRESSION SNOMED Code(s): 96391537 (2) Stage IV carcinoma of colon Narrative/Plan: Diagnostic and therapeutic circumstances as described. Systemic therapy on hold till acute problem is resolved. He will also need brain RT prior to the same Current Visit: Yes Status: Acute Code(s): C18.9 - MALIGNANT NEOPLASM OF COLON, UNSPECIFIED SNOMED Code(s): 565817659 Patient has decided against surgical intervention and has proceeded with first on Thursday. Dr Kumari: I have completed the full history and physical, developed the above impression and plan, agree with dictation, dictated as a ascribe.
--- NOTE | 2021-12-04 15:06 | MR ---
EXAMINATION TYPE: MR brain wo/w con DATE OF EXAM: 12/04/2021 COMPARISON: Prior MRI brain June 20, 2021 HISTORY: Mets to brain, needed for comp + plan for XRT. TECHNIQUE: Multiplanar, multisequence images of the brain and brainstem is performed without and with IV contras t, utilizing 7 mL intravenous Gadavist . FINDINGS: Diffusion weighted images demonstrate no evidence of a recent infarct. Slightly suboptimal as the B1000 image is not sent to PACs as distinct series. Right frontal craniotomy changes redemonst rated. Mild curvilinear dural enhancement at this level is less prominent versus prior. Deep to this there is r persistent ring-enhancing 2.1 x 1.8 cm focus measuring 3.6 cm in length craniocaudal image 30 with slightly more thickened irregular peripheral enhancement increased in size worrisome for loc al neoplastic recurrence given above findings. There is new ring-enhancing 1.9 x 1.9 x 1.8 cm lesion right frontal lobe axial image 37 and coronal image 32 with surrounding T2 hyperintense or vasogenic edema noted. Some new subtle midline shift axial image 16 noted. There is old infarct inferior corporate event planner ior to this involving the right frontal and parietal lobes extending into the superior temporal lobe with volume loss now being obscured by increase T2 signal or vasogenic edema that is more prominent v ersus prior. Midline structures redemonstrate normal morphology. The craniocervical junction appears within rosanne l limits. There is increased T1 and T2 signal with incomplete filling of the draining right sagittal and transverse sinus consistent with partial dural venous thrombosis redemonstrated. The globes are intact bilaterally. Resolved right maxillary and frontal sinus increased fluid noted. IMPRESSION: 1. Enlarging ring enhancing lesion below right frontal craniotomy is consistent with local neoplastic recurrence. New second inferior right frontal metastatic focus. New local mass effect and subtle mid line shift. 2. Stable partial right-sided dural venous thrombosis.
[2021-12-04] MEDS: RIVAROXABAN 20 MG TAB PO SCH (15:14)
--- NOTE | 2021-12-04 18:05 | P.PN ---
Subjective Progress Note Date: 12/04/21 Principal diagnosis: Lung mass, Large left-sided 8.7 cm mass along with multiple sclerotic pulmonary nodules seen in the right apex as well 1.3 cm nodule in right upper lobe, 2.3 cm nodule in left upper lobe and lingular area T5 vertebral mass of about 5.44.1 cm causing cord compression Lower extremity weakness more so on the right side compared to left side Status post fall COPD History of prostate: And brain cancer with metastases 12/04/2021, patient seen eval reexamined during the rounds labs reviewed medications reviewed care plan discussed, continued to have the right lower extremity flaccid paralysis, some movement antigravity strength present on the left side, getting radiation therapy, has been getting [place] and Toradol for pain along with as needed Tylenol, patient is being evaluated for rehab 12/03/2021, patient seen eval examined during the rounds labs reviewed medications reviewed care plan discussed, respiratory status remains stable patient has been getting radiation therapy, has been complaining of severe constipation and edema has been given, patient continued to have flaccid pelvis of the right lower extremity left moving well 12/02/2021, patient seen eval examined, earlier today had radiation therapy for the spine exhausted afterwards, breathing is stable denies any chest pain denies any cough or sputum production, patient continued to have flaccid pelvis is off right lower extremity stable strength on the left side patient is scheduled for physical therapy later on today 12/01/2021, patient seen eval reexamined during the rounds labs reviewed medications reviewed care plan discussed, patient now has the complete flaccid paralysis of right lower extremity some strength on the left side however is present, patient is getting radiation therapy Thursday to Thursday of thoracic spine for cord compression, patient is considered to be a poor surgical candidate by anesthesia service 11/30/2021, patient seen eval reexamined during the rounds labs reviewed medications reviewed, patient now appears to have paralysis and weakness worse on the right leg cannot move now left leg some movement antigravity is present, respiratory status stable denies any chest pain, patient is undergoing radiation therapy of the spine as well as on Decadron patient remains on diuretic anticoagulants patient has been cleared by cardiology for surgery however anesthesia refused 11/29/2021, patient seen eval reexamined the still have significant weakness in the right lower extremity as well as the left lower extremity, spine surgery have canceled as per recommendation anesthesia 11/28/2021, patient seen eval examined during the rounds labs reviewed medications reviewed care plan discussed, surgery which was planned earlier this morning have been canceled will put back on Xarelto due to 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, patient was already on before and was held due to anticipated surgery 11/27/2021, patient seen eval examined during the rounds labs reviewed medications reviewed, thyroid: Number spine MRI positive for osseous erosive lesion and soft tissue density with Stenosis and T4-T5 Level and Complete Effacement and the Right T4-T5 and T5-T6 Neural Foramina Compartment with Tumor, Lumbar Spine Intact the Left Apical Pulmonary Mass Remains Stable, Spine Surgery Well Aware of These Findings Patient Is Tentatively Scheduled to OR for Tomorrow 11/26/2021, patient seen and evaluated examined during the rounds still have lower extremity weakness, patient to be evaluated by spine surgery, patient is not considered to be a candidate for interventional pain management, E[place]ace status however is stable patient remains on room air afebrile, oxygen saturation 96%, MRI of LS-spine pending, patient remains on Decadron Patient is a 61-year-old male with the primary is history of colon cancer came into the hospital with lower extremity weakness which has been going on for 1 week patient has been walking with the help of walker unable to stand by himself, he feels that he is more weak on the right leg compared to left leg, patient also tripped and fell down yesterday with some pain on the right lateral shoulder, patient denies any loss of consciousness or hemiparesis, denies any dizziness denies any chest pain no fever or chills patient sees Dr. Drew and Dr. Singh he is being treated with colon cancer prostate cancer and brain cancer he has some metastases in the lung and spine, computed tomography scan of the thoracic vertebra positive for large osseous lesion right side of the T5 vertebra and adjacent portion of the right fifth rib which was causing significant canal stenosis and likely spinal cord compression. In addition large left apical lung mass measuring about 8.77 cm also noted some irregular lesion of 2.3 cm also identified some bronchiectasis and right upper lobe 1.3 cm nodule noted. Patient denies any hemoptysis. Objective - Vital Signs Vital signs: Vital Signs Temp 98.0 F 12/04/21 11:52 Pulse 91 12/04/21 11:52 Resp 18 12/04/21 11:52 BP 104/66 12/04/21 11:52 Pulse Ox 96 12/04/21 11:52 Intake & Output 12/03/21 12/04/21 12/04/21 18:59 06:59 18:59 Intake Total 580 300 Output Total 320 378 0374 Balance -320 100 -1270 Weight 68.946 kg Intake: Oral 580 300 Output: Urine 722 029 3900 Other: Voiding Method Urinal Urinal Urinal # Bowel Movements 1 - Exam - Constitutional General appearance: average body habitus, cooperative, disheveled - EENT Eyes: EOMI, PERRLA ENT: normal oropharynx Ears: bilateral: normal - Neck Carotids: bilateral: upstroke normal Thyroid: bilateral: normal size - Respiratory Respiratory: bilateral: CTA - Cardiovascular Rhythm: regular Heart sounds: normal: S1, S2 - Gastrointestinal General gastrointestinal: soft - Integumentary Integumentary: normal turgor - Neurologic Neurologic: CNII-XII intact - Musculoskeletal Musculoskeletal: generalized weakness, right sided weakness - Psychiatric Psychiatric: A&O x's 3, appropriate affect, intact judgment & insight - Labs CBC & Chem 7: 11/28/21 07:57 11/28/21 07:57 Assessment and Plan Assessment: Lung mass, Large left-sided 8.7 cm mass along with multiple sclerotic pulmonary nodules seen in the right apex as well 1.3 cm nodule in right upper lobe, 2.3 cm nodule in left upper lobe and lingular area Large mid thoracic vertebral mass of about 5.44.1 cm causing cord compression Lower extremity weakness more so on the right side compared to left side Status post fall COPD History of prostate: And brain cancer with metastases Plan: Continue physical therapy and rehab Continue radiation therapy of thoracic spine Continue pain management appears to be fairly well controlled Surgery has been postponed and canceled by anesthesia Continue Decadron Continue direct total anticoagulants Radiation oncology following as well lung mass likely can be evaluated on outpatient basis however given the increase in nature of the tumor supportive care is the best option Physical therapy and rehab evaluation opted for radiation therapy We'll follow closely further recommendations pending plan of care as per clinical response of the patient Time with Patient: Greater than 30
[2021-12-04] MEDS: traZODone HCL 100 MG TAB PO SCH (20:32)
[2021-12-05] MEDS: DEXAMETHASONE SOD PHOSPHATE 10 MG/ML 1 ML VIAL IVP SCH ×3 (05:50→17:10)
[2021-12-05] MEDS: SENNOSIDES-DOCUSATE SODIUM 1 EACH TAB PO SCH ×2 (08:50→20:25)
[2021-12-05] MEDS: PRAVASTATIN SODIUM 80 MG TAB PO SCH (08:50)
[2021-12-05] MEDS: amLODIPine 2.5 MG TAB PO SCH (08:50)
[2021-12-05] MEDS: lisinopriL 10 MG TAB PO SCH (08:50)
[2021-12-05] MEDS: PANTOPRAZOLE 40 MG TABLET PO SCH ×2 (08:50→17:10)
--- NOTE | 2021-12-05 10:42 | P.PN ---
Subjective Progress Note Date: 12/05/21 Principal diagnosis: Large left-sided mass along with multiple sclerotic pulmonary nodules seen in the right apex, nodule in right upper lobe, as well as nodule in left upper lobe and lingular area T5 vertebral mass causing cord compression Lower extremity weakness more so on the right side compared to left side Status post fall COPD The patient is a 61 year-old male with a history of metastatic adenocarcinoma the sigmoid colon, initially treated with surgical resection followed by FOLFOX in 2012. He has been treated with SBRT under the care of Dr. Vernon for several pulmonary metastases from 2015 through 2018. In April 2021, the patient underwent radiotherapy to a right frontal brain metastasis which had been previously surgically resected. He subsequently required more recent radiotherapy to a second right frontal brain metastasis performed on November 06, 2021 under the care of Dr. Vernon. He recently moved to [place] and transferred his care to Dr. Hamlin in medical oncology. He recently developed difficulty with ambulation and increasing pain in the upper right back. CT Imaging is consistent with spinal cord compression at T5. The patient reports that over the past week he has noticed further increase in lower extremity weakness. He reports having a fall at home, and presented to the hospital. He was having continued pain in the right upper back which radiates under the axilla. He has had no difficulty with loss of urinary contro l. He does admit to intermittent difficulty with constipation, but this is largely unchanged. Upon admission to the hospital, a CT of the thoracic and lumbar spine was performed on November 25. These studies revealed a large right paraspinal soft tissue mass at the level of T5 invading the spinal canal with likely cord compression. A large left apical lung mass was also visualized. The L-spine was largely unremarkable. The patient was subsequent he started on 6 mg dexamethasone 4 times a day, and has been evaluated by orthopedic spine surgery and oncology. MRI shows a large soft tissue component to tumor that extends from the T5 vertebral body causing destruction of the posterior elements of T5. The tumor is extradural and extends cranially to the level of T3-4 and caudally to mid T6 region. There is extension anteriorly from the CVJ that is abutting the posterior parietal plura, but there does not appear to be any extension into the lung at this time. There is pending instability of T5 due to the destruction. There is severe compression of the thoracic cord in this area due to tumor burden. An operative intervention was planned: a tumor resection separation surgery with decompression and stabilization of T3 through T8 with T5 tumor resection. 11/27 - Education provided regarding his advanced metastatic cancer. The patient demonstrated good insight and judgement. Education also provided regarding his upcoming surgery. He understands the risks involved and wishes to proceed with his operation tomorrow. His goal after surgery is to work with physical therapy, go to rehab, and eventually return home. He is hopeful and extremely motivated to get his strength back so he can walk again. Once he is discharged he plans on continuing aggressive treatment for his cancer, including chemo and radiation. 11/28 - The patient's surgery was postponed. He has a large mass in the lung that is extending into the pulmonary artery. There is also pulmonary embolism that is seen and right heart strain. Cardiology was consulted for clearance. 2Decho and doppler study pending. The patient is worried about finding somewhere to live if they are unable to do surgery. He states he is unable to live alone now. Reassured patient that we would help find a facility to live in. Surgery to re-evaluate options tomorrow. 11/29 Patient was cleared for surgery by cardiology. However, after a lengthy discussion with the surgeon, the patient decided against having surgery due to it being too high risk. The patient is to begin radiation treatment today. His was told that he may never walk again. He stated he is alright with that. His goal is to just get enough strength back in his legs to move them around. He states he has good upper body strength and will be able to use a wheelchair to get around. After his radiation treatments are completed, he would like to go to rehab. 12/03 The patient has flaccid paralysis of right lower extremity, but has retained some strength/movement on the left lower extremity. The patient is getting radiation therapy of thoracic spine for cord compression, patient is considered to be a poor surgical candidate. 12/04 Patient states he is still very weak and unable to stand with a walker. He is waiting for his radiation treatment and a MRI this afternoon. Plans on being discharged soon to rehab. However, per field nurse case manager -Miguel declined patient. [facility] has also declined the patient. Referrals sent to [facility] and [facility]. Case jorge will continue work on a d/c plan for the pt. Objective - Vital Signs Vital signs: Vital Signs Temp 98.0 F 12/05/21 05:00 Pulse 74 12/05/21 05:00 Resp 16 12/05/21 05:00 BP 104/67 12/05/21 05:00 Pulse Ox 97 12/05/21 05:00 Intake & Output 12/04/21 12/05/21 12/05/21 18:59 06:59 18:59 Intake Total 1070 Output Total 1270 800 Balance -1270 270 Weight 68.946 kg Intake: Oral 1070 Output: Urine 1270 800 Other: Voiding Method Urinal Urinal - Exam General: Patient awake alert and oriented x 3. No acute distress. HEENT: Head is atraumatic, normocephalic Neck is supple. Sclerae are clear. Pupils equal, round and reactive to light bilaterally. CV: Heart regular in rate and rhythm positive S1 and S2. No S3. No S4. No clicks, rubs or murmurs. No JVD. Peripheral pulses equal. 2/4 Lungs: Clear to auscultation bilaterally. No wheezes rales or rhonchi. Respirations even and nonlabored. No intercostal retractions. Abdomen/GI: Bowel sounds present in all 4 quadrants. Bowel sounds normoactive. No abdominal pain or tenderness. : Voiding without difficulty Musculoskeletal/ Right LE flaccid, increased weakness to Left LE Vascular: Radial pulses equal. 2/4. Skin: No rash. Neurologic: Awake, alert and oriented times 3. Psychiatric: Appropriate mood and affect. - Labs CBC & Chem 7: 11/28/21 07:57 11/28/21 07:57 Assessment and Plan Plan: Symptoms * Pain - Patients states his pain is well controlled, continue [place], Toradol, Tylenol, and Motrin PRN. He has chronic pain and takes [place] at home. * Fatigue - patient states he has chronic fatigue and low energy secondary to cancer treaments * SOB - denies, on RA * Insomnia - Continue Trazodone, patient has intermittent insomnia, takes Trazodone at home, states he has been sleeping well * N/V - denies, PRN Compazine is ordered prn * Anxiety/Depression - denies anxiety there is PRN Ativan available prn, patient denies any depression * Confusion/agitation - none * Appetite/dysphagia/weight loss - Patient states his appetite is up and down at baseline. He denies any dysphagia. He has not had significant weight loss in the last month. * Constipation - Reports chronic constipation. Colace is ordered. Miralax PRN added. Last BM 12/04 * Incontinence - denies, voiding per urinal * Itch - denies Goal/Plan - The patient states he is waiting for another radiation treatment this afternoon. No rehab facilities with availabilities in the [place] area at this time. Patient states that he has family in [facility]. health plan manager is in the process of looking in those areas for a facility. Code Status Patient wishes to remain a full code. Viola Ramirez [facility] Palliative Care Spectralink [phone] Email: [email or web address] Time with Patient: Less than 30
[2021-12-05 11:05] LABS: African American GFR (CKD) 93.7 (60.0-200.0); Albumin/Globulin Ratio 1.48 (1.60-3.17); Anion Gap 10.4 mmol/L (10.00-18.00); BUN/Creat Ratio 24.1 Ratio (12.00-20.00); Blood Urea Nitrogen 24.1 mg/dL (9.0-27.0); Calcium 10.6 mg/dL (8.7-10.3); Carbon Dioxide 30.6 mmol/L (20.0-27.5); Globulin 2.7 g/dL (1.6-3.3); Non-African American GFR(CKD) 80.9 (60.0-200.0); Potassium 5.7 mmol/L (3.5-5.5); Total Bilirubin 0.2 mg/dL (0.30-1.20); Total Protein 6.7 g/dL (6.2-8.2)
[2021-12-05 11:20] LABS: HCT 59.4 % (39.6-50.0); HGB 18.2 g/dL (13.0-17.0); MCH 25.2 pg (27.0-32.0); MCHC 30.6 g/dL (32.0-37.0); MCV 82.2 fL (80.0-97.0); Mean Platelet Volume 9.3 fL (9.5-12.2); NRBC Per 100 WBC 0 /100 WBCS (0.0-0.0); Platelet Count 483 X 10*3/uL (140-440); RBC 7.23 X 10*6/uL (4.40-5.60); RDW 16.5 % (11.5-14.5); WBC 15.32 X 10*3/uL (4.50-10.00)
[2021-12-05 12:20] LABS: Basophils # (A) 0.06 X 10*3/uL (0.00-0.10); Basophils % (A) 0.4 %; Eosinophils # (A) 0 X 10*3/uL (0.04-0.35); Eosinophils % (A) 0 %; Immature Grans, Automated 3.7 %; Lymphocytes # (A) 1.34 X 10*3/uL (0.90-5.00); Lymphocytes % (A) 8.7 %; Monocytes # (A) 0.99 X 10*3/uL (0.20-1.00); Monocytes % (A) 6.5 %; Neutrophils # (A) 12.36 X 10*3/uL (1.80-7.70); Neutrophils % (A) 80.7 %; RBC Morphology NORMAL
--- NOTE | 2021-12-05 12:29 | P.PN ---
Subjective Progress Note Date: 12/05/21 Principal diagnosis: Cord compression Continues on XRT, no acute events Objective - Vital Signs Vital signs: Vital Signs Temp 98.0 F 12/05/21 05:00 Pulse 70 12/05/21 10:45 Resp 16 12/05/21 08:00 BP 106/72 12/05/21 10:45 Pulse Ox 97 12/05/21 05:00 Intake & Output 12/04/21 12/05/21 12/05/21 18:59 06:59 18:59 Intake Total 1070 Output Total 1270 800 Balance -1270 270 Weight 68.946 kg Intake: Oral 1070 Output: Urine 1270 800 Other: Voiding Method Urinal Urinal Urinal - Exam - Constitutional General appearance: no acute distress - EENT Eyes: EOMI, PERRLA ENT: hearing grossly normal, normal oropharynx - Neck Neck: no lymphadenopathy Thyroid: bilateral: normal size - Respiratory Respiratory: bilateral: CTA - Cardiovascular Rhythm: regular Heart sounds: normal: S1, S2 - Gastrointestinal General gastrointestinal: normal bowel sounds, soft - Integumentary Integumentary: normal - Neurologic Decrease sensory to right leg, thigh and all below ribcage in comparison to left. He still has bladder and bowel control Neurologic: CNII-XII intact - Musculoskeletal Musculoskeletal: right sided weakness (RLE prox weakness 2-2+/5) - Labs CBC & Chem 7: 12/05/21 07:03 12/05/21 07:03 Labs: Abnormal Lab Results - Last 24 Hours (Table) 12/05/21 12/05/21 Range/Units 07:03 07:03 WBC 15.32 H (4.50-10.00) X 10*3/uL RBC 7.23 H (4.40-5.60) X 10*6/uL Hgb 18.2 H (13.0-17.0) g/dL Hct 59.4 H* (39.6-50.0) % MCH 25.2 L (27.0-32.0) pg MCHC 30.6 L (32.0-37.0) g/dL RDW 16.5 H (11.5-14.5) % Plt Count 483 H (140-440) X 10*3/uL MPV 9.3 L (9.5-12.2) fL Potassium 5.7 H (3.5-5.5) mmol/L Chloride 95 L (96-109) mmol/L Carbon Dioxide 30.6 H (20.0-27.5) mmol/L BUN/Creatinine Ratio 24.10 H (12.00-20.00) Ratio Calcium 10.6 H (8.7-10.3) mg/dL Total Bilirubin 0.20 L (0.30-1.20) mg/dL Albumin/Globulin Ratio 1.48 L (1.60-3.17) g/dL Assessment and Plan Plan: Comments: Xray lumbar and Tspine, CT scans lumbar and T spine reports reviewed Assessment and Plan (1) Cord compression Narrative/Plan: The pt is presenting with impending cord compression at T5, due to progression of his known metastatic colon ca. He does b/l LE weakness, R > L, with sensation mostly maintained at this time. Sensation is decreased on right still after interventions from ribcage below - IV steroids - Rad onc and Ortho spine following - Patient has refused surgical intervention and proceeded with palliative ra diation Current Visit: Yes Status: Acute Code(s): G95.20 - UNSPECIFIED CORD COMPRESSION SNOMED Code(s): 16541090 (2) Stage IV carcinoma of colon Narrative/Plan: Diagnostic and therapeutic circumstances as described. Systemic therapy on hold till acute problem is resolved. He will also need brain RT prior to the same Current Visit: Yes Status: Acute Code(s): C18.9 - MALIGNANT NEOPLASM OF COLON, UNSPECIFIED SNOMED Code(s): 655538642 COntinue on radiation, Continueo n steroids and plan for rehab likely at discharge with steroid wean in conjunction with recs from XRT Dr Kumari: I have completed the full history and physical, developed the above impression and plan, agree with dictation, dictated as a ascribe.
[2021-12-05] MEDS: RIVAROXABAN 20 MG TAB PO SCH (12:54)
--- NOTE | 2021-12-05 14:41 | P.PN ---
Subjective Progress Note Date: 12/05/21 Principal diagnosis: Lung mass, Large left-sided 8.7 cm mass along with multiple sclerotic pulmonary nodules seen in the right apex as well 1.3 cm nodule in right upper lobe, 2.3 cm nodule in left upper lobe and lingular area T5 vertebral mass of about 5.44.1 cm causing cord compression Lower extremity weakness more so on the right side compared to left side Status post fall COPD History of prostate: And brain cancer with metastases 12/05/2021, patient seen eval examined during the rounds labs reviewed medications reviewed overall no significant change, still have flaccid paralysis of the right lower extremity, continue on radiation therapy for the spine radiation oncology as well as medical oncology following, patient is being evaluated for rehab placement PT OT following patient remains on direct oral anticoagulant as well as Decadron, tolerating well 12/04/2021, patient seen eval reexamined during the rounds labs reviewed medications reviewed care plan discussed, continued to have the right lower extremity flaccid paralysis, some movement antigravity strength present on the left side, getting radiation therapy, has been getting [place] and Toradol for pa in along with as needed Tylenol, patient is being evaluated for rehab 12/03/2021, patient seen eval examined during the rounds labs reviewed medications reviewed care plan discussed, respiratory status remains stable patient has been getting radiation therapy, has been complaining of severe constipation and edema has been given, patient continued to have flaccid pelvis of the right lower extremity left moving well 12/02/2021, patient seen eval examined, earlier today had radiation therapy for the spine exhausted afterwards, breathing is stable denies any chest pain denies any cough or sputum production, patient continued to have flaccid pelvis is off right lower extremity stable strength on the left side patient is scheduled for physical therapy later on today 12/01/2021, patient seen eval reexamined during the rounds labs reviewed medications reviewed care plan discussed, patient now has the complete flaccid paralysis of right lower extremity some strength on the left side however is present, patient is getting radiation therapy Thursday to Thursday of thoracic spine for cord compression, patient is considered to be a poor surgical candidate by anesthesia service 11/30/2021, patient seen eval reexamined during the rounds labs reviewed medications reviewed, patient now appears to have paralysis and weakness worse on the right leg cannot move now left leg some movement antigravity is present, respiratory status stable denies any chest pain, patient is undergoing radiation therapy of the spine as well as on Decadron patient remains on diuretic anticoagulants patient has been cleared by cardiology for surgery however anesthesia refused 11/29/2021, patient seen eval reexamined the still have significant weakness in the right lower extremity as well as the left lower extremity, spine surgery have canceled as per recommendation anesthesia 11/28/2021, patient seen eval examined during the rounds labs reviewed medications reviewed care plan discussed, surgery which was planned earlier this morning have been canceled will put back on Xarelto due to 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, patient was already on before and was held due to anticipated surgery 11/27/2021, patient seen eval examined during the rounds labs reviewed medications reviewed, thyroid: Number spine MRI positive for osseous erosive lesion and soft tissue density with Stenosis and T4-T5 Level and Complete Effacement and the Right T4-T5 and T5-T6 Neural Foramina Compartment with Tumor, Lumbar Spine Intact the Left Apical Pulmonary Mass Remains Stable, Spine Surgery Well Aware of These Findings Patient Is Tentatively Scheduled to OR for Tomorrow 11/26/2021, patient seen and evaluated examined during the rounds still have lower extremity weakness, patient to be evaluated by spine surgery, patient is not considered to be a candidate for interventional pain management, Estrace status however is stable patient remains on room air afebrile, oxygen saturation 96%, MRI of LS-spine pending, patient remains on Decadron Patient is a 61-year-old male with the primary is history of colon cancer came into the hospital with lower extremity weakness which has been going on for 1 week patient has been walking with the help of walker unable to stand by himself, he feels that he is more weak on the right leg compared to left leg, patient also tripped and fell down yesterday with some pain on the right lateral shoulder, patient denies any loss of consciousness or hemiparesis, denies any dizziness denies any chest pain no fever or chills patient sees Dr. Drew and Dr. Singh he is being treated with colon cancer prostate cancer and brain cancer he has some metastases in the lung and spine, computed tomography scan of the thoracic vertebra positive for large osseous lesion right side of the T5 vertebra and adjacent portion of the right fifth rib which was causing significant canal stenosis and likely spinal cord compression. In addition large left apical lung mass measuring about 8.77 cm also noted some irregular lesion of 2.3 cm also identified some bronchiectasis and right upper lobe 1.3 cm nodule noted. Patient denies any hemoptysis. Objective - Vital Signs Vital signs: Vital Signs Temp 98.5 F 12/05/21 12:44 Pulse 62 12/05/21 12:44 Resp 18 12/05/21 12:44 BP 112/71 12/05/21 12:44 Pulse Ox 98 12/05/21 12:44 Intake & Output 12/04/21 12/05/21 12/05/21 18:59 06:59 18:59 Intake Total 1070 Output Total 1270 800 Balance -1270 270 Weight 68.946 kg Intake: Oral 1070 Output: Urine 1270 800 Other: Voiding Method Urinal Urinal Urinal - Exam - Constitutional General appearance: average body habitus, cooperative, disheveled - EENT Eyes: EOMI, PERRLA ENT: normal oropharynx Ears: bilateral: normal - Neck Carotids: bilateral: upstroke normal Thyroid: bilateral: normal size - Respiratory Respiratory: bilateral: CTA - Cardiovascular Rhythm: regular Heart sounds: normal: S1, S2 - Gastrointestinal General gastrointestinal: soft - Integumentary Integumentary: normal turgor - Neurologic Neurologic: CNII-XII intact - Musculoskeletal Musculoskeletal: generalized weakness, right sided weakness - Psychiatric Psychiatric: A&O x's 3, appropriate affect, intact judgment & insight - Labs CBC & Chem 7: 12/05/21 07:03 12/05/21 07:03 Labs: Abnormal Lab Results - Last 24 Hours (Table) 12/05/21 12/05/21 Range/Units 07:03 07:03 WBC 15.32 H (4.50-10.00) X 10*3/uL RBC 7.23 H (4.40-5.60) X 10*6/uL Hgb 18.2 H (13.0-17.0) g/dL Hct 59.4 H* (39.6-50.0) % MCH 25.2 L (27.0-32.0) pg MCHC 30.6 L (32.0-37.0) g/dL RDW 16.5 H (11.5-14.5) % Plt Count 483 H (140-440) X 10*3/uL Plt Count Comment INCREASED A MPV 9.3 L (9.5-12.2) fL Immature Gran # 0.57 H (0.00-0.04) X 10*3/uL Neutrophils # 12.36 H (1.80-7.70) X 10*3/uL Eosinophils # 0 L (0.04-0.35) X 10*3/uL Potassium 5.7 H (3.5-5.5) mmol/L Chloride 95 L (96-109) mmol/L Carbon Dioxide 30.6 H (20.0-27.5) mmol/L BUN/Creatinine Ratio 24.10 H (12.00-20.00) Ratio Calcium 10.6 H (8.7-10.3) mg/dL Total Bilirubin 0.20 L (0.30-1.20) mg/dL Albumin/Globulin Ratio 1.48 L (1.60-3.17) g/dL Assessment and Plan Assessment: Lung mass, Large left-sided 8.7 cm mass along with multiple sclerotic pulmonary nodules seen in the right apex as well 1.3 cm nodule in right upper lobe, 2.3 cm nodule in left upper lobe and lingular area Large mid thoracic vertebral mass of about 5.44.1 cm causing cord compression Lower extremity weakness more so on the right side compared to left side Status post fall COPD History of prostate: And brain cancer with metastases Plan: Continue physical therapy and rehab Continue radiation therapy of thoracic spine Continue pain management appears to be fairly well controlled Surgery has been postponed and canceled by anesthesia Continue Decadron Continue direct total anticoagulants Radiation oncology following as well lung mass likely can be evaluated on outpatient basis however given the increase in nature of the tumor supportive care is the best option Physical therapy and rehab evaluation opted for radiation therapy We'll follow closely further recommendations pending plan of care as per clinical response of the patient Time with Patient: Greater than 30
[2021-12-05] MEDS: traZODone HCL 100 MG TAB PO SCH (20:25)
[2021-12-06] MEDS: DEXAMETHASONE SOD PHOSPHATE 10 MG/ML 1 ML VIAL IVP SCH ×4 (00:28→16:39)
[2021-12-06] MEDS: PRAVASTATIN SODIUM 80 MG TAB PO SCH (09:22)
[2021-12-06] MEDS: amLODIPine 2.5 MG TAB PO SCH (09:22)
[2021-12-06] MEDS: SENNOSIDES-DOCUSATE SODIUM 1 EACH TAB PO SCH ×2 (09:22→14:26)
[2021-12-06] MEDS: PANTOPRAZOLE 40 MG TABLET PO SCH ×2 (09:23→16:39)
[2021-12-06] MEDS: lisinopriL 10 MG TAB PO SCH (09:23)
--- NOTE | 2021-12-06 11:33 | P.PN ---
Subjective Progress Note Date: 12/06/21 Principal diagnosis: Lung mass, Large left-sided 8.7 cm mass along with multiple sclerotic pulmonary nodules seen in the right apex as well 1.3 cm nodule in right upper lobe, 2.3 cm nodule in left upper lobe and lingular area T5 vertebral mass of about 5.44.1 cm causing cord compression Lower extremity weakness more so on the right side compared to left side Status post fall COPD History of prostate: And brain cancer with metastases 12/06/2021, patient seen eval examined during the rounds labs reviewed medications reviewed, patient remains on [place] dexamethasone along with radiation therapy to the spine patient remains on Xarelto due to high risk of pulmonary embolism and DVT, PT OT has been following, patient remains have flaccid weakness on the right lower extremity, left lower extremity moving well, 12/05/2021, patient seen eval examined during the rounds labs reviewed medications reviewed overall no significant change, still have flaccid paralysis of the right lower extremity, continue on radiation therapy for the spine radiation oncology as well as medical oncology following, patient is being evaluated for rehab placement PT OT following patient remains on direct oral anticoagulant as well as Decadron, tolerating well 12/04/2021, patient seen eval reexamined during the rounds labs reviewed medications reviewed care plan discussed, continued to have the right lower extremity flaccid paralysis, some movement antigravity strength present on the left side, getting radiation therapy, has been getting [place] and Toradol for pain along with as needed Tylenol, patient is being evaluated for rehab 12/03/2021, patient seen eval examined during the rounds labs reviewed medications reviewed care plan discussed, respiratory status remains stable pat ient has been getting radiation therapy, has been complaining of severe constipation and edema has been given, patient continued to have flaccid pelvis of the right lower extremity left moving well 12/02/2021, patient seen eval examined, earlier today had radiation therapy for the spine exhausted afterwards, breathing is stable denies any chest pain denies any cough or sputum production, patient continued to have flaccid pelvis is off right lower extremity stable strength on the left side patient is scheduled for physical therapy later on today 12/01/2021, patient seen eval reexamined during the rounds labs reviewed medications reviewed care plan discussed, patient now has the complete flaccid paralysis of right lower extremity some strength on the left side however is present, patient is getting radiation therapy Thursday to Thursday of thoracic spine for cord compression, patient is considered to be a poor surgical candidate by anesthesia service 11/30/2021, patient seen eval reexamined during the rounds labs reviewed medications reviewed, patient now appears to have paralysis and weakness worse on the right leg cannot move now left leg some movement antigravity is present, respiratory status stable denies any chest pain, patient is undergoing radiation therapy of the spine as well as on Decadron patient remains on diuretic anticoagulants patient has been cleared by cardiology for surgery however anesthesia refused 11/29/2021, patient seen eval reexamined the still have significant weakness in the right lower extremity as well as the left lower extremity, spine surgery have canceled as per recommendation anesthesia 11/28/2021, patient seen eval examined during the rounds labs reviewed medications reviewed care plan discussed, surgery which was planned earlier this morning have been canceled will put back on Xarelto due to 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, patient was already on before and was held due to anticipated surgery 11/27/2021, patient seen eval examined during the rounds labs reviewed medications reviewed, thyroid: Number spine MRI positive for osseous erosive lesion and soft tissue density with Stenosis and T4-T5 Level and Complete Effacement and the Right T4-T5 and T5-T6 Neural Foramina Compartment with Tumor, Lumbar Spine Intact the Left Apical Pulmonary Mass Remains Stable, Spine Surgery Well Aware of These Findings Patient Is Tentatively Scheduled to OR for Tomorrow 11/26/2021, patient seen and evaluated examined during the rounds still have lower extremity weakness, patient to be evaluated by spine surgery, patient is not considered to be a candidate for interventional pain management, Estrace status however is stable patient remains on room air afebrile, oxygen saturation 96%, MRI of LS-spine pending, patient remains on Decadron Patient is a 61-year-old male with the primary is history of colon cancer came into the hospital with lower extremity weakness which has been going on for 1 week patient has been walking with the help of walker unable to stand by himself, he feels that he is more weak on the right leg compared to left leg, patient also tripped and fell down yesterday with some pain on the right lateral shoulder, patient denies any loss of consciousness or hemiparesis, denies any dizziness denies any chest pain no fever or chills patient sees Dr. Drew and Dr. Singh he is being treated with colon cancer prostate cancer and brain cancer he has some metastases in the lung and spine, computed tomography scan of the thoracic vertebra positive for large osseous lesion right side of the T5 vertebra and adjacent portion of the right fifth rib which was causing significant canal stenosis and likely spinal cord compression. In addition large left apical lung mass measuring about 8.77 cm also noted some irregular lesion of 2.3 cm also identified some bronchiectasis and right upper lobe 1.3 cm nodule noted. Patient denies any hemoptysis. Objective - Vital Signs Vital signs: Vital Signs Temp 97.7 F 12/06/21 06:19 Pulse 76 12/06/21 08:40 Resp 18 12/06/21 08:40 BP 104/70 12/06/21 06:19 Pulse Ox 100 12/06/21 06:19 Intake & Output 12/05/21 12/06/21 12/06/21 18:59 06:59 18:59 Intake Total 1100 240 Output Total 1400 550 Balance -300 -310 Intake: Oral 1100 240 Output: Urine 1400 550 Other: Voiding Method Urinal Urinal Urinal # Voids 2 # Bowel Movements 1 - Exam - Constitutional General appearance: average body habitus, cooperative, disheveled - EENT Eyes: EOMI, PERRLA ENT: normal oropharynx Ears: bilateral: normal - Neck Carotids: bilateral: upstroke normal Thyroid: bilateral: normal size - Respiratory Respiratory: bilateral: CTA - Cardiovascular Rhythm: regular Heart sounds: normal: S1, S2 - Gastrointestinal General gastrointestinal: soft - Integumentary Integumentary: normal turgor - Neurologic Neurologic: CNII-XII intact - Musculoskeletal Musculoskeletal: generalized weakness, right sided weakness - Psychiatric Psychiatric: A&O x's 3, appropriate affect, intact judgment & insight - Labs CBC & Chem 7: 12/05/21 07:03 12/05/21 07:03 Labs: Abnormal Lab Results - Last 24 Hours (Table) 12/05/21 Range/Units 07:03 WBC 15.32 H (4.50-10.00) X 10*3/uL RBC 7.23 H (4.40-5.60) X 10*6/uL Hgb 18.2 H (13.0-17.0) g/dL Hct 59.4 H* (39.6-50.0) % MCH 25.2 L (27.0-32.0) pg MCHC 30.6 L (32.0-37.0) g/dL RDW 16.5 H (11.5-14.5) % Plt Count 483 H (140-440) X 10*3/uL Plt Count Comment INCREASED A MPV 9.3 L (9.5-12.2) fL Immature Gran # 0.57 H (0.00-0.04) X 10*3/uL Neutrophils # 12.36 H (1.80-7.70) X 10*3/uL Eosinophils # 0 L (0.04-0.35) X 10*3/uL Assessment and Plan Assessment: Lung mass, Large left-sided 8.7 cm mass along with multiple sclerotic pulmonary nodules seen in the right apex as well 1.3 cm nodule in right upper lobe, 2.3 cm nodule in left upper lobe and lingular area Large mid thoracic vertebral mass of about 5.44.1 cm causing cord compression Lower extremity weakness more so on the right side compared to left side Status post fall COPD History of prostate, and colon cancer with brain and pulmonary with metastases Plan: Continue physical therapy and rehab Continue radiation therapy of thoracic spine Continue pain management appears to be fairly well controlled Surgery has been postponed and canceled by anesthesia Continue Decadron Continue direct total anticoagulants Radiation oncology following as well lung mass likely can be evaluated on outpatient basis however given the increase in nature of the tumor supportive care is the best option Physical therapy and rehab evaluation opted for radiation therapy We'll follow closely further recommendations pending plan of care as per clinical response of the patient Time with Patient: Greater than 30
[2021-12-06] MEDS: RIVAROXABAN 20 MG TAB PO SCH (12:00)
--- NOTE | 2021-12-06 12:05 | P.PN ---
Subjective Progress Note Date: 12/06/21 Principal diagnosis: Large left-sided mass along with multiple sclerotic pulmonary nodules seen in the right apex, nodule in right upper lobe, as well as nodule in left upper lobe and lingular area T5 vertebral mass causing cord compression Lower extremity weakness more so on the right side compared to left side Status post fall COPD The patient is a 61 year-old male with a history of metastatic adenocarcinoma the sigmoid colon, initially treated with surgical resection followed by FOLFOX in 2012. He has been treated with SBRT under the care of Dr. Vernon for several pulmonary metastases from 2015 through 2018. In April 2021, the patient underwent radiotherapy to a right frontal brain metastasis which had been previously surgically resected. He subsequently required more recent radiotherapy to a second right frontal brain metastasis performed on November 06, 2021 under the care of Dr. Vernon. He recently moved to [place] and transferred his care to Dr. Hamlin in medical oncology. He recently developed difficulty with ambulation and increasing pain in the upper right back. CT Imaging is consistent with spinal cord compression at T5. The patient reports that over the past week he has noticed further increase in lower extremity weakness. He reports having a fall at home, and presented to the hospital. He was having continued pain in the right upper back which radiates under the axilla. He has had no difficulty with loss of urinary contro l. He does admit to intermittent difficulty with constipation, but this is largely unchanged. Upon admission to the hospital, a CT of the thoracic and lumbar spine was performed on November 25. These studies revealed a large right paraspinal soft tissue mass at the level of T5 invading the spinal canal with likely cord compression. A large left apical lung mass was also visualized. The L-spine was largely unremarkable. The patient was subsequent he started on 6 mg dexamethasone 4 times a day, and has been evaluated by orthopedic spine surgery and oncology. MRI shows a large soft tissue component to tumor that extends from the T5 vertebral body causing destruction of the posterior elements of T5. The tumor is extradural and extends cranially to the level of T3-4 and caudally to mid T6 region. There is extension anteriorly from the CVJ that is abutting the posterior parietal plura, but there does not appear to be any extension into the lung at this time. There is pending instability of T5 due to the destruction. There is severe compression of the thoracic cord in this area due to tumor burden. An operative intervention was planned: a tumor resection separation surgery with decompression and stabilization of T3 through T8 with T5 tumor resection. 11/27 - Education provided regarding his advanced metastatic cancer. The patient demonstrated good insight and judgement. Education also provided regarding his upcoming surgery. He understands the risks involved and wishes to proceed with his operation tomorrow. His goal after surgery is to work with physical therapy, go to rehab, and eventually return home. He is hopeful and extremely motivated to get his strength back so he can walk again. Once he is discharged he plans on continuing aggressive treatment for his cancer, including chemo and radiation. 11/28 - The patient's surgery was postponed. He has a large mass in the lung that is extending into the pulmonary artery. There is also pulmonary embolism that is seen and right heart strain. Cardiology was consulted for clearance. 2Decho and doppler study pending. The patient is worried about finding somewhere to live if they are unable to do surgery. He states he is unable to live alone now. Reassured patient that we would help find a facility to live in. Surgery to re-evaluate options tomorrow. 11/29 Patient was cleared for surgery by cardiology. However, after a lengthy discussion with the surgeon, the patient decided against having surgery due to it being too high risk. The patient is to begin radiation treatment today. His was told that he may never walk again. He stated he is alright with that. His goal is to just get enough strength back in his legs to move them around. He states he has good upper body strength and will be able to use a wheelchair to get around. After his radiation treatments are completed, he would like to go to rehab. 12/03 The patient has flaccid paralysis of right lower extremity, but has retained some strength/movement on the left lower extremity. The patient is getting radiation therapy of thoracic spine for cord compression, patient is considered to be a poor surgical candidate. 12/04 Patient states he is still very weak and unable to stand with a walker. He is waiting for his radiation treatment and a MRI this afternoon. Plans on being discharged soon to rehab. However, per case maker [facility] declined patient. [facility] has also declined the patient. Referrals sent to [facility] and [place]. Kasi reawillam will continue work on a d/c plan for the pt. 12/05 The patient states he is waiting for another radiation treatment this afternoon. No rehab facilities with availabilities in the [place] area at this time. Patient states that he has family in [facility] and [place]. 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 Objective - Vital Signs Vital signs: Vital Signs Temp 97.7 F 12/06/21 06:19 Pulse 76 12/06/21 08:40 Resp 18 12/06/21 08:40 BP 104/70 12/06/21 06:19 Pulse Ox 100 12/06/21 06:19 Intake & Output 12/05/21 12/06/21 12/06/21 18:59 06:59 18:59 Intake Total 1100 240 Output Total 1400 550 Balance -300 -310 Intake: Oral 1100 240 Output: Urine 1400 550 Other: Voiding Method Urinal Urinal Urinal # Voids 2 # Bowel Movements 1 - Labs CBC & Chem 7: 12/05/21 07:03 12/05/21 07:03 Labs: Abnormal Lab Results - Last 24 Hours (Table) 12/05/21 12/05/21 Range/Units 07:03 07:03 WBC 15.32 H (4.50-10.00) X 10*3/uL RBC 7.23 H (4.40-5.60) X 10*6/uL Hgb 18.2 H (13.0-17.0) g/dL Hct 59.4 H* (39.6-50.0) % MCH 25.2 L (27.0-32.0) pg MCHC 30.6 L (32.0-37.0) g/dL RDW 16.5 H (11.5-14.5) % Plt Count 483 H (140-440) X 10*3/uL Plt Count Comment INCREASED A MPV 9.3 L (9.5-12.2) fL Immature Gran # 0.57 H (0.00-0.04) X 10*3/uL Neutrophils # 12.36 H (1.80-7.70) X 10*3/uL Eosinophils # 0 L (0.04-0.35) X 10*3/uL Potassium 5.7 H (3.5-5.5) mmol/L Chloride 95 L (96-109) mmol/L Carbon Dioxide 30.6 H (20.0-27.5) mmol/L BUN/Creatinine Ratio 24.10 H (12.00-20.00) Ratio Calcium 10.6 H (8.7-10.3) mg/dL Total Bilirubin 0.20 L (0.30-1.20) mg/dL Albumin/Globulin Ratio 1.48 L (1.60-3.17) g/dL Assessment and Plan Plan: Symptoms * Pain - Patients states his pain is well controlled, continue [place], Toradol, Tylenol, and Motrin PRN. He has chronic pain and takes [place] at home. * Fatigue - patient states he has chronic fatigue and low energy secondary to cancer treaments * SOB - denies, on RA * Insomnia - Continue Trazodone, patient has intermittent insomnia, takes Trazodone at home, states he has been sleeping well * N/V - denies, PRN Compazine is ordered prn * Anxiety/Depression - denies anxiety there is PRN Ativan available prn, patient denies any depression * Confusion/agitation - none * Appetite/dysphagia/weight loss - Patient states his appetite is up and down at baseline. He denies any dysphagia. He has not had significant weight loss in the last month. * Constipation - Reports chronic constipation. Colace is ordered. Miralax PRN added. Last BM 12/05 * Incontinence - denies, voiding per urinal * Itch - denies Goal/Plan - The case maker was able to find several facilities willing to accept the patient. The patient's significant other is at the bedside. They are looking over the list together and will decide soon. Code Status Patient wishes to remain a full code. Viola Ramirez [facility] Palliative Care Spectralink [phone] Email: [email or web address] Time with Patient: Less than 30
[2021-12-06 12:57] LABS: African American GFR (CKD) 89 (>60 ml/min/1.73 sqM); Anion Gap 5 mmol/L; Blood Urea Nitrogen 32 mg/dL (9-20); Calcium 9.8 mg/dL (8.4-10.2); Carbon Dioxide 35 mmol/L (22-30); Chloride 95 mmol/L (98-107); Glucose 95 mg/dL (74-99); Non-African American GFR(CKD) 77 (>60 ml/min/1.73 sqM); Potassium 5.3 mmol/L (3.5-5.1); Sodium 135 mmol/L (137-145)
[2021-12-06 12:59] LABS: Basophils % (A) 0 %; Eosinophils % (A) 0 %; HGB 17.4 gm/dL (13.0-17.5); Lymphocytes # (A) 0.9 k/uL (1.0-4.8); Lymphocytes % (A) 7 %; MCH 25.6 pg (25.0-35.0); MCV 82.6 fL (80.0-100.0); Mean Platelet Volume 7.1; Monocytes # (A) 0.8 k/uL (0-1.0); Monocytes % (A) 6 %; Neutrophils % (A) 86 %; Platelet Count 407 k/uL (150-450); RBC 6.81 m/uL (4.30-5.90); RDW 14.1 % (11.5-15.5); WBC 12.9 k/uL (3.8-10.6)
[2021-12-06 13:00] LABS: HCT 56.2 % (39.0-53.0)
--- NOTE | 2021-12-06 18:55 | P.PN ---
Subjective Progress Note Date: 12/06/21 Principal diagnosis: Cord compression Objective - Vital Signs Vital signs: Vital Signs Temp 97.7 F 12/06/21 11:52 Pulse 84 12/06/21 11:52 Resp 16 12/06/21 11:52 BP 124/86 12/06/21 11:52 Pulse Ox 97 12/06/21 11:52 Intake & Output 12/05/21 12/06/21 12/06/21 18:59 06:59 18:59 Intake Total 1100 240 240 Output Total 1400 550 800 Balance -300 -310 -560 Intake: Oral 1100 240 240 Output: Urine 1400 550 800 Other: Voiding Method Urinal Urinal Urinal # Voids 2 # Bowel Movements 1 3 - Exam - Constitutional General appearance: no acute distress - EENT Eyes: EOMI, PERRLA ENT: hearing grossly normal, normal oropharynx - Neck Neck: no lymphadenopathy Thyroid: bilateral: normal size - Respiratory Respiratory: bilateral: CTA - Cardiovascular Rhythm: regular Heart sounds: normal: S1, S2 - Gastrointestinal General gastrointestinal: normal bowel sounds, soft - Integumentary Integumentary: normal - Neurologic Decrease sensory to right leg, thigh and all below ribcage in comparison to left. He still has bladder and bowel control Neurologic: CNII-XII intact - Musculoskeletal Musculoskeletal: right sided weakness (RLE prox weakness 2-2+/5) - Labs CBC & Chem 7: 12/06/21 12:16 12/06/21 12:16 Labs: Abnormal Lab Results - Last 24 Hours (Table) 12/06/21 12/06/21 Range/Units 12:16 12:16 WBC 12.9 H (3.8-10.6) k/uL RBC 6.81 H (4.30-5.90) m/uL Hct 56.2 H (39.0-53.0) % Neutrophils # 11.0 H (1.3-7.7) k/uL Lymphocytes # 0.9 L (1.0-4.8) k/uL Sodium 135 L (137-145) mmol/L Potassium 5.3 H (3.5-5.1) mmol/L Chloride 95 L (98-107) mmol/L Carbon Dioxide 35 H (22-30) mmol/L BUN 32 H (9-20) mg/dL Assessment and Plan Plan: Comments: Xray lumbar and Tspine, CT scans lumbar and T spine reports reviewed Assessment and Plan (1) Cord compression Narrative/Plan: The pt initially presenting with impending cord compression at T5, due to progression of his known metastatic colon ca. He does b/l LE weakness, R > L, with sensation mostly maintained at this time. Sensation is decreased on right still after interventions from ribcage below - IV steroids and PPI - Mild improving since starting radiation, no loss of sensation Current Visit: Yes Status: Acute Code(s): G95.20 - UNSPECIFIED CORD COMPRESSION SNOMED Code(s): 86304999 (2) Stage IV carcinoma of colon Narrative/Plan: Diagnostic and therapeutic circumstances as described. Systemic therapy on hold till acute problem is resolved. He will also need brain RT prior to the same Current Visit: Yes Status: Acute Code(s): C18.9 - MALIGNANT NEOPLASM OF COLON, UNSPECIFIED SNOMED Code(s): 227091537 COntinue on radiation, Continue no steroids and plan for rehab likely at discharge with steroid wean in conjunction with recs from XRT Dr Kumari: I have completed the full history and physical, developed the above impression and plan, agree with dictation, dictated as a ascribe.
[2021-12-06] MEDS: traZODone HCL 100 MG TAB PO SCH (22:12)
[2021-12-06] MEDS: HYDROcodone/APAP 10-325MG 1 EACH TAB PO PRN (22:15)
[2021-12-07] MEDS: DEXAMETHASONE SOD PHOSPHATE 10 MG/ML 1 ML VIAL IVP SCH ×4 (00:04→17:15)
--- NOTE | 2021-12-07 06:20 | PN ---
PROGRESS NOTE male with thoracic compression due to metastatic cancer. He is done with his radiation, chemo and further treatment somewhere. [place] he is too high of a risk to have surgery to remove the mass from the thoracic spine. He has cord compression. Unable to move his legs still. Temp 97.7, pulse 84, respiratory 16, blood pressure is 124/86, O2 97. Respiratory: Lungs clear. Cardiovascular: S1-S2. Psych: Fair mood and affect. Neurologic: Alert and orient x3. White count 12.9, hemoglobin 17.4, BUN is 32, creatinine 1.05, sodium 135, potassium 5.3. ASSESSMENT: Cord compression, progression of his known metastatic colon cancer. He is unable to move his right leg at all. Left leg minimally, maybe 5%. Decreased sensation on the right. ( ). Minimal improvement with radiation. No place for him to go, cannot find a halfway placement. Stage IV colon carcinoma. He is going to need brain RT due to a spot on his brain. No systemic therapy and chemo until is thoracic spine is fixed. PROGNOSIS: Extremely guarded. MMODL / IJN: [id number] /
[2021-12-07] MEDS: PRAVASTATIN SODIUM 80 MG TAB PO SCH (09:18)
[2021-12-07] MEDS: lisinopriL 10 MG TAB PO SCH (09:18)
[2021-12-07] MEDS: amLODIPine 2.5 MG TAB PO SCH (09:18)
[2021-12-07] MEDS: SENNOSIDES-DOCUSATE SODIUM 1 EACH TAB PO SCH ×3 (09:18→20:03)
[2021-12-07] MEDS: PANTOPRAZOLE 40 MG TABLET PO SCH ×2 (09:18→17:15)
--- NOTE | 2021-12-07 09:55 | P.PN ---
Subjective Progress Note Date: 12/07/21 Principal diagnosis: Lung mass, Large left-sided 8.7 cm mass along with multiple sclerotic pulmonary nodules seen in the right apex as well 1.3 cm nodule in right upper lobe, 2.3 cm nodule in left upper lobe and lingular area T5 vertebral mass of about 5.44.1 cm causing cord compression Lower extremity weakness more so on the right side compared to left side Status post fall COPD History of prostate: And brain cancer with metastases (32,022, patient seen eval examined during the rounds labs reviewed medications reviewed care plan discussed, patient remains on the Decadron have been getting radiation therapy to the spine on direct anticoagulant weakness in the leg co ntinued to present significantly with flaccid paralysis of the right leg, left side unable to lift antigravity, patient has been considered not a surgical candidate conservatively treated, with progressive paraparesis, rehab placement is pending insurance 12/06/2021, patient seen eval examined during the rounds labs reviewed medications reviewed, patient remains on Diovan dexamethasone along with radiation therapy to the spine patient remains on Xarelto due to high risk of pulmonary embolism and DVT, PT OT has been following, patient remains have flaccid weakness on the right lower extremity, left lower extremity moving well, 12/05/2021, patient seen eval examined during the rounds labs reviewed medications reviewed overall no significant change, still have flaccid paralysis of the right lower extremity, continue on radiation therapy for the spine radiation oncology as well as medical oncology following, patient is being evaluated for rehab placement PT OT following patient remains on direct oral anticoagulant as well as Decadron, tolerating well 12/04/2021, patient seen eval reexamined during the rounds labs reviewed medications reviewed care plan discussed, continued to have the right lower extremity flaccid paralysis, some movement antigravity strength present on the left side, getting radiation therapy, has been getting [place] and Toradol for pain along with as needed Tylenol, patient is being evaluated for rehab 12/03/2021, patient seen eval examined during the rounds labs reviewed medications reviewed care plan discussed, respiratory status remains stable patient has been getting radiation therapy, has been complaining of severe constipation and edema has been given, patient continued to have flaccid pelvis of the right lower extremity left moving well 12/02/2021, patient seen eval examined, earlier today had radiation therapy for the spine exhausted afterwards, breathing is stable denies any chest pain denies any cough or sputum production, patient continued to have flaccid pelvis is off right lower extremity stable strength on the left side patient is scheduled for physical therapy later on today 12/01/2021, patient seen eval reexamined during the rounds labs reviewed medications reviewed care plan discussed, patient now has the complete flaccid paralysis of right lower extremity some strength on the left side however is present, patient is getting radiation therapy Thursday to Thursday of thoracic spine for cord compression, patient is considered to be a poor surgical candidate by anesthesia service 11/30/2021, patient seen eval reexamined during the rounds labs reviewed medications reviewed, patient now appears to have paralysis and weakness worse on the right leg cannot move now left leg some movement antigravity is present, respiratory status stable denies any chest pain, patient is undergoing radiation therapy of the spine as well as on Decadron patient remains on diuretic anticoagulants patient has been cleared by cardiology for surgery however anesthesia refused 11/29/2021, patient seen eval reexamined the still have significant weakness in the right lower extremity as well as the left lower extremity, spine surgery have canceled as per recommendation anesthesia 11/28/2021, patient seen eval examined during the rounds labs reviewed medications reviewed care plan discussed, surgery which was planned earlier this morning have been canceled will put back on Xarelto due to 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, patient was already on before and was held due to anticipated surgery 11/27/2021, patient seen eval examined during the rounds labs reviewed medications reviewed, thyroid: Number spine MRI positive for osseous erosive lesion and soft tissue density with Stenosis and T4-T5 Level and Complete Effacement and the Right T4-T5 and T5-T6 Neural Foramina Compartment with Tumor, Lumbar Spine Intact the Left Apical Pulmonary Mass Remains Stable, Spine Surgery Well Aware of These Findings Patient Is Tentatively Scheduled to OR for Tomorrow 11/26/2021, patient seen and evaluated examined during the rounds still have lower extremity weakness, patient to be evaluated by spine surgery, patient is not considered to be a candidate for interventional pain management, Estrace status however is stable patient remains on room air afebrile, oxygen saturation 96%, MRI of LS-spine pending, patient remains on Decadron Patient is a 61-year-old male with the primary is history of colon cancer came into the hospital with lower extremity weakness which has been going on for 1 week patient has been walking with the help of walker unable to stand by himself, he feels that he is more weak on the right leg compared to left leg, patient also tripped and fell down yesterday with some pain on the right lateral shoulder, patient denies any loss of consciousness or hemiparesis, denies any dizziness denies any chest pain no fever or chills patient sees Dr. Drew and Dr. Singh he is being treated with colon cancer prostate cancer and brain cancer he has some metastases in the lung and spine, computed tomography scan of the thoracic vertebra positive for large osseous lesion right side of the T5 vertebra and adjacent portion of the right fifth rib which was causing significant canal stenosis and likely spinal cord compression. In addition large left apical lung mass measuring about 8.77 cm also noted some irregular lesion of 2.3 cm also identified some bronchiectasis and right upper lobe 1.3 cm nodule noted. Patient denies any hemoptysis. Objective - Vital Signs Vital signs: Vital Signs Temp 98.8 F 12/07/21 04:00 Pulse 62 12/07/21 04:00 Resp 16 12/07/21 04:00 BP 114/78 12/07/21 04:00 Pulse Ox 98 12/07/21 04:00 Intake & Output 12/06/21 12/07/21 12/07/21 18:59 06:59 18:59 Intake Total 240 Output Total 800 200 Balance -560 -200 Intake: Oral 240 Output: Urine 800 200 Other: Voiding Method Urinal Urinal # Voids 2 # Bowel Movements 3 - Exam - Constitutional General appearance: average body habitus, cooperative, disheveled - EENT Eyes: EOMI, PERRLA ENT: normal oropharynx Ears: bilateral: normal - Neck Carotids: bilateral: upstroke normal Thyroid: bilateral: normal size - Respiratory Respiratory: bilateral: CTA - Cardiovascular Rhythm: regular Heart sounds: normal: S1, S2 - Gastrointestinal General gastrointestinal: soft - Integumentary Integumentary: normal turgor - Neurologic Neurologic: CNII-XII intact - Musculoskeletal Musculoskeletal: generalized weakness, right sided weakness - Psychiatric Psychiatric: A&O x's 3, appropriate affect, intact judgment & insight - Labs CBC & Chem 7: 12/06/21 12:16 12/06/21 12:16 Labs: Abnormal Lab Results - Last 24 Hours (Table) 12/06/21 12/06/21 Range/Units 12:16 12:16 WBC 12.9 H (3.8-10.6) k/uL RBC 6.81 H (4.30-5.90) m/uL Hct 56.2 H (39.0-53.0) % Neutrophils # 11.0 H (1.3-7.7) k/uL Lymphocytes # 0.9 L (1.0-4.8) k/uL Sodium 135 L (137-145) mmol/L Potassium 5.3 H (3.5-5.1) mmol/L Chloride 95 L (98-107) mmol/L Carbon Dioxide 35 H (22-30) mmol/L BUN 32 H (9-20) mg/dL Assessment and Plan Assessment: Paraparesis more so on the right compared to left Lung mass, Large left-sided 8.7 cm mass along with multiple sclerotic pulmonary nodules seen in the right apex as well 1.3 cm nodule in right upper lobe, 2.3 cm nodule in left upper lobe and lingular area Large mid thoracic vertebral mass of about 5.44.1 cm causing cord compression Lower extremity weakness more so on the right side compared to left side Status post fall COPD History of prostate, and colon cancer with brain and pulmonary with metastases Plan: Continue physical therapy and rehab Continue radiation therapy of thoracic spine Continue pain management appears to be fairly well controlled Surgery has been postponed and canceled by anesthesia Continue Decadron Continue direct total anticoagulants Radiation oncology following as well lung mass likely can be evaluated on outpatient basis however given the increase in nature of the tumor supportive care is the best option Physical therapy and rehab evaluation opted for radiation therapy We'll follow closely further recommendations pending plan of care as per clinical response of the patient Overall long and short-term prognosis not good patient is on palliative care Time with Patient: Greater than 30
[2021-12-07 11:42] LABS: Basophils # (A) 0.04 X 10*3/uL (0.00-0.10); Basophils % (A) 0.3 %; Eosinophils # (A) 0.01 X 10*3/uL (0.04-0.35); Eosinophils % (A) 0.1 %; HCT 56.5 % (39.6-50.0); HGB 17.4 g/dL (13.0-17.0); Immature Grans, Automated 3.7 %; Lymphocytes # (A) 0.58 X 10*3/uL (0.90-5.00); MCH 25.1 pg (27.0-32.0); MCHC 30.8 g/dL (32.0-37.0); MCV 81.6 fL (80.0-97.0); Mean Platelet Volume 9.4 fL (9.5-12.2); Monocytes # (A) 0.33 X 10*3/uL (0.20-1.00); Monocytes % (A) 2.8 %; NRBC Per 100 WBC 0 /100 WBCS (0.0-0.0); Neutrophils # (A) 10.31 X 10*3/uL (1.80-7.70); Neutrophils % (A) 88.1 %; Platelet Count 465 X 10*3/uL (140-440); RBC 6.92 X 10*6/uL (4.40-5.60); RDW 16.4 % (11.5-14.5)
--- NOTE | 2021-12-07 14:09 | PN ---
PROGRESS NOTE This is a 61-year-old white male with a thoracic tumor. Radiation was done. He is unable to move his right leg at all, and his left leg can move like 10%. He has COPD, prostate and brain cancer with metastases, cord compression at T5. He wants to have care home placement in town here where he can follow up with his doctors. He remains on Diovan, dexamethasone. He is on Xarelto for high risk of pulmonary embolisms. He appears to be crying a little bit, but he does not want depression medications. Temperature 98.8, pulse 62, respiratory rate 16 to 18, blood pressure 114/78, O2 98. Cardiovascular S1, S2. Lungs clear. GI soft. Integument normal turgor. Neurologic show cranial nerves intact. Generalized right-sided weakness on musculoskeletal exam. White count 12.9, hemoglobin 17.4. Sodium 135, potassium 5.3, BUN is 32, creatinine 1.05. He has paraparesis, more on the right compared to the left. Lung mass 8.7 cm along with sclerotic pulmonary nodules, large mid-thoracic vertebral mass, lower extremity weakness, more on the right than the left, status post fall, COPD. Continue Decadron, oral anticoagulation, radiation therapy, physical therapy, outpatient chemotherapy. Prognosis extremely guarded. MMODL / IJN: [id number] /
[2021-12-07] MEDS: RIVAROXABAN 20 MG TAB PO SCH (14:12)
[2021-12-07] MEDS: traZODone HCL 100 MG TAB PO SCH (20:03)
[2021-12-08] MEDS: DEXAMETHASONE SOD PHOSPHATE 10 MG/ML 1 ML VIAL IVP SCH ×5 (00:04→23:29)
[2021-12-08] MEDS: SENNOSIDES-DOCUSATE SODIUM 1 EACH TAB PO SCH ×2 (07:50→20:24)
[2021-12-08] MEDS: lisinopriL 10 MG TAB PO SCH (07:54)
[2021-12-08] MEDS: PRAVASTATIN SODIUM 80 MG TAB PO SCH (07:54)
[2021-12-08] MEDS: PANTOPRAZOLE 40 MG TABLET PO SCH ×2 (07:55→17:40)
[2021-12-08] MEDS: amLODIPine 2.5 MG TAB PO SCH (07:55)
[2021-12-08] MEDS: HYDROcodone/APAP 10-325MG 1 EACH TAB PO PRN (07:56)
[2021-12-08 09:37] LABS: African American GFR (CKD) 93.7 (60.0-200.0); Albumin 3.8 g/dL (3.8-4.9); Albumin/Globulin Ratio 1.73 (1.60-3.17); Anion Gap 8.4 mmol/L (10.00-18.00); BUN/Creat Ratio 29.6 Ratio (12.00-20.00); Blood Urea Nitrogen 29.6 mg/dL (9.0-27.0); Calcium 9.7 mg/dL (8.7-10.3); Carbon Dioxide 30.6 mmol/L (20.0-27.5); Globulin 2.2 g/dL (1.6-3.3); Non-African American GFR(CKD) 80.9 (60.0-200.0); Potassium 4.8 mmol/L (3.5-5.5); Total Bilirubin 0.4 mg/dL (0.30-1.20)
[2021-12-08 09:49] LABS: Basophils # (A) 0.05 X 10*3/uL (0.00-0.10); Basophils % (A) 0.3 %; Eosinophils # (A) 0 X 10*3/uL (0.04-0.35); Eosinophils % (A) 0 %; HCT 55.8 % (39.6-50.0); HGB 17.2 g/dL (13.0-17.0); Immature Grans, Automated 4.8 %; Lymphocytes # (A) 0.56 X 10*3/uL (0.90-5.00); Lymphocytes % (A) 3.8 %; MCH 25.1 pg (27.0-32.0); MCHC 30.8 g/dL (32.0-37.0); MCV 81.3 fL (80.0-97.0); Mean Platelet Volume 9.6 fL (9.5-12.2); Monocytes # (A) 0.48 X 10*3/uL (0.20-1.00); Monocytes % (A) 3.2 %; NRBC Per 100 WBC 0 /100 WBCS (0.0-0.0); Neutrophils # (A) 12.99 X 10*3/uL (1.80-7.70); Neutrophils % (A) 87.9 %; Platelet Count 464 X 10*3/uL (140-440); RBC 6.86 X 10*6/uL (4.40-5.60); RDW 15.4 % (11.5-14.5); WBC 14.79 X 10*3/uL (4.50-10.00)
[2021-12-08] MEDS: RIVAROXABAN 20 MG TAB PO SCH (12:55)
--- NOTE | 2021-12-08 18:30 | PN ---
PROGRESS NOTE This is a 61-year-old white male with cord compression. He said he cries at times, but he says he cannot really move his legs at this point more than 10% to 20% on the left; right he cannot move at all. Temperature 97.7, pulse 84, respiratory rate 16 to 18, blood pressure 124/86. Cardiovascular S1, S2. Lungs clear. GI normal. Musculoskeletal as mentioned above. White count 12.9, hemoglobin 17.4 sodium 135, potassium 5.3. He has cord compression T5 due to metastatic colon cancer. IV steroids, PPI. Minimal improvement. Status post radiation, minimal improvement. Stage IV carcinoma of the colon. Systemic therapy on hold until acute problem resolved. radiotherapy prior to the same. Continue on radiation. Continue no steroids and plan for rehab with a steroid wean versus transfer down to another tertiary center that maybe they can work on his spine. MMODL / IJN: [id number] /
[2021-12-08] MEDS: traZODone HCL 100 MG TAB PO SCH (20:24)
[2021-12-09 04:12] VITALS: TEMP 98.1
[2021-12-09] MEDS: DEXAMETHASONE SOD PHOSPHATE 10 MG/ML 1 ML VIAL IVP SCH ×2 (05:37→11:58)
[2021-12-09] MEDS: SENNOSIDES-DOCUSATE SODIUM 1 EACH TAB PO SCH (06:52)
[2021-12-09] MEDS: PRAVASTATIN SODIUM 80 MG TAB PO SCH (06:53)
[2021-12-09] MEDS: PANTOPRAZOLE 40 MG TABLET PO SCH (06:54)
[2021-12-09] MEDS: lisinopriL 10 MG TAB PO SCH (06:54)
[2021-12-09] MEDS: HYDROcodone/APAP 10-325MG 1 EACH TAB PO PRN (06:54)
[2021-12-09] MEDS: amLODIPine 2.5 MG TAB PO SCH (06:54)
--- NOTE | 2021-12-09 10:44 | P.PN ---
Subjective Progress Note Date: 12/09/21 Principal diagnosis: Large left-sided mass along with multiple sclerotic pulmonary nodules seen in the right apex, nodule in right upper lobe, as well as nodule in left upper lobe and lingular area T5 vertebral mass causing cord compression Lower extremity weakness more so on the right side compared to left side Status post fall COPD The patient is a 61 year-old male with a history of metastatic adenocarcinoma the sigmoid colon, initially treated with surgical resection followed by FOLFOX in 2012. He has been treated with SBRT under the care of Dr. Vernon for sever al pulmonary metastases from 2015 through 2019. In April 2021, the patient underwent radiotherapy to a right frontal brain metastasis which had been previously surgically resected. He subsequently required more recent radiotherapy to a second right frontal brain metastasis performed on November 06, 2021 under the care of Dr. Vernon. He recently moved to [place] and transferred his care to Dr. Hamlin in medical oncology. He recently developed difficulty with ambulation and increasing pain in the upper right back. CT Imaging is consistent with spinal cord compression at T5. The patient reports that over the past week he has noticed further increase in lower extremity weakness. He reports having a fall at home, and presented to the hospital. He was having continued pain in the right upper back which radiates under the axilla. He has had no difficulty with loss of urinary contr ol. He does admit to intermittent difficulty with constipation, but this is largely unchanged. Upon admission to the hospital, a CT of the thoracic and lumbar spine was performed on November 25. These studies revealed a large right paraspinal soft tissue mass at the level of T5 invading the spinal canal with likely cord compression. A large left apical lung mass was also visualized. The L-spine was largely unremarkable. The patient was subsequent he started on 6 mg dexamethasone 4 times a day, and has been evaluated by orthopedic spine surgery and oncology. MRI shows a large soft tissue component to tumor that extends from the T5 vertebral body causing destruction of the posterior elements of T5. The tumor is extradural and extends cranially to the level of T3-4 and caudally to mid T6 region. There is extension anteriorly from the CVJ that is abutting the posterior parietal plura, but there does not appear to be any extension into the lung at this time. There is pending instability of T5 due to the destruction. There is severe compression of the thoracic cord in this area due to tumor burden. An operative intervention was planned: a tumor resection separation surgery with decompression and stabilization of T3 through T8 with T5 tumor resection. 11/27 - Education provided regarding his advanced metastatic cancer. The patient demonstrated good insight and judgement. Education also provided regarding his upcoming surgery. He understands the risks involved and wishes to proceed with his operation tomorrow. His goal after surgery is to work with physical therapy, go to rehab, and eventually return home. He is hopeful and extremely motivated to get his strength back so he can walk again. Once he is discharged he plans on continuing aggressive treatment for his cancer, including chemo and radiation. 11/28 - The patient's surgery was postponed. He has a large mass in the lung that is extending into the pulmonary artery. There is also pulmonary embolism that is seen and right heart strain. Cardiology was consulted for clearance. 2Decho and doppler study pending. The patient is worried about finding somewhere to live if they are unable to do surgery. He states he is unable to live alone now. Reassured patient that we would help find a facility to live in. Surgery to re-evaluate options tomorrow. 11/29 Patient was cleared for surgery by cardiology. However, after a lengthy discussion with the surgeon, the patient decided against having surgery due to it being too high risk. The patient is to begin radiation treatment today. His was told that he may never walk again. He stated he is alright with that. His goal is to just get enough strength back in his legs to move them around. He states he has good upper body strength and will be able to use a wheelchair to get around. After his radiation treatments are completed, he would like to go to rehab. 12/03 The patient has flaccid paralysis of right lower extremity, but has retained some strength/movement on the left lower extremity. The patient is getting radiation therapy of thoracic spine for cord compression, patient is considered to be a poor surgical candidate. 12/04 Patient states he is still very weak and unable to stand with a walker. He is waiting for his radiation treatment and a MRI this afternoon. Plans on being discharged soon to rehab. However, per caser [facility] declined patient. [facility] has also declined the patient. Referrals sent to [facility] [place] and [place]. Kasi patel will continue work on a d/c plan for the pt. 12/05 The patient states he is waiting for another radiation treatment this afternoon. No rehab facilities with availabilities in the [place] area at this time. Patient states that he has family in [facility] and [place]. 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 Objective - Vital Signs Vital signs: Vital Signs Temp 98.1 F 12/09/21 04:10 Pulse 73 12/09/21 04:10 Resp 18 12/09/21 04:10 BP 99/67 12/09/21 04:10 Pulse Ox 97 12/09/21 04:10 Intake & Output 12/08/21 12/09/21 12/09/21 18:59 06:59 18:59 Intake Total 200 Output Total 450 200 Balance -250 -200 Intake: Oral 200 Output: Urine 450 200 Other: Voiding Method Urinal Urinal # Voids 4 2 - Exam General: Patient awake alert and oriented x 3. No acute distress. HEENT: Head is atraumatic, normocephalic Neck is supple. Sclerae are clear. Pupils equal, round and reactive to light bilaterally. CV: Heart regular in rate and rhythm positive S1 and S2. No S3. No S4. No clicks, rubs or murmurs. No JVD. Peripheral pulses equal. 2/4 Lungs: Clear to auscultation bilaterally. No wheezes rales or rhonchi. Respirations even and nonlabored. No intercostal retractions. Abdomen/GI: Bowel sounds present in all 4 quadrants. Bowel sounds normoactive. No abdominal pain or tenderness. : Voiding without difficulty Musculoskeletal/ Right LE flaccid, increased weakness to Left LE Vascular: Radial pulses equal. 2/4. Skin: No rash. Neurologic: Awake, alert and oriented times 3. Psychiatric: Appropriate mood and affect. - Labs CBC & Chem 7: 12/08/21 06:22 12/08/21 06:22 Assessment and Plan Plan: Symptoms * Pain - Patients states his pain is well controlled, continue Upham, Toradol, Tylenol, and Motrin PRN. He has chronic pain and takes Upham at home. * Fatigue - patient states he has chronic fatigue and low energy secondary to cancer treaments * SOB - denies, on RA * Insomnia - Continue Trazodone, patient has intermittent insomnia, takes Trazodone at home, states he has been sleeping well * N/V - denies, PRN Compazine is ordered prn * Anxiety/Depression - denies anxiety there is PRN Ativan available prn, patient denies any depression * Confusion/agitation - none * Appetite/dysphagia/weight loss - Patient states his appetite is up and down at baseline. He denies any dysphagia. He has not had significant weight loss in the last month. * Constipation - Reports chronic constipation. Colace is ordered. Miralax PRN added. Last LBM 12/08 * Incontinence - denies, voiding per urinal * Itch - denies Goal/Plan - [place] has accepted the patient and the caser was able to obtain authorization. Awaiting clearance for discharge from attending. No new needs identified. Code Status Patient wishes to remain a full code. Viola Ramirez [facility] Palliative Care Spectralink [phone] Email: [email or web address] Time with Patient: Less than 30
[2021-12-09 12:04] VITALS: BP 112/69; PULSE 76; RESP 16
--- NOTE | 2021-12-09 12:06 | P.PN ---
Subjective Progress Note Date: 12/09/21 Principal diagnosis: spinal cord compression with significantly decreased lower extremity function, metastatic colon adenocarcinoma In follow-up today patient reports flaccid right lower extremity, slight movement of left lower extremity. He maintains full strength in the upper extremities. He maintains bowel and bladder control. He has had bowel movements. He reports decreased stomach upset with protonix. He has had radiation to the spine mass that is been causing compression. No notable improvements just yet. Pain is controlled. Patient is awaiting discharged to rehabilitation. Objective - Vital Signs Vital signs: Vital Signs Temp 98.1 F 12/09/21 04:10 Pulse 73 12/09/21 04:10 Resp 18 12/09/21 04:10 BP 99/67 12/09/21 04:10 Pulse Ox 97 12/09/21 04:10 Intake & Output 12/08/21 12/09/21 12/09/21 18:59 06:59 18:59 Intake Total 200 Output Total 450 200 Balance -250 -200 Intake: Oral 200 Output: Urine 450 200 Other: Voiding Method Urinal Urinal # Voids 4 2 - Constitutional General appearance: Present: cooperative, no acute distress, thin - EENT Eyes: Present: anicteric sclerae, EOMI ENT: Present: hearing grossly normal - Respiratory Details: Respirations even and unlabored - Neurologic Neurologic Comment(s): Right lower extremity is flaccid. Left lower extremity patient can bend at the knee only. Neurologic: Present: CNII-XII intact (Grossly) - Psychiatric Psychiatric: Present: A&O x's 3, appropriate affect, intact judgment & insight - Allied health notes Allied health notes reviewed: case management - Labs CBC & Chem 7: 12/08/21 06:22 12/08/21 06:22 Assessment and Plan (1) Cord compression Current Visit: Yes Status: Acute Priority: High Code(s): G95.20 - UNSPECIFIED CORD COMPRESSION SNOMED Code(s): 87883316 (2) Lower extremity weakness Current Visit: Yes Status: Acute Priority: High Code(s): R29.898 - OTH SYMPTOMS AND SIGNS INVOLVING THE MUSCULOSKELETAL SYSTEM SNOMED Code(s): 507928128 (3) Stage IV carcinoma of colon Current Visit: Yes Status: Acute Priority: High Code(s): C18.9 - MALIGNANT NEOPLASM OF COLON, UNSPECIFIED SNOMED Code(s): 768568242 (4) Brain metastases Current Visit: Yes Status: Acute Priority: High Code(s): C79.31 - SECONDARY MALIGNANT NEOPLASM OF BRAIN SNOMED Code(s): 12071409 Plan: Cord compression from metastatic colon adenocarcinoma. Orthopedic intervention for cord compression was not recommended because of concerns for location of the tumor to pulmonary artery. Pt did have and has c ompleted radiation. Hope for some improvement in his symptoms over the next week or so post treatment. He will continue on steroids with a taper. He will continue on PPI. New brain metastases. Plan for f/ u Radiation Oncologist after patient has completed rehabilitation. All cancer treatment will be on hold until patient has been discharged from rehabilitation and completed appropriate radiation therapy.
--- NOTE | 2021-12-09 13:18 | DS ---
DISCHARGE SUMMARY DISCHARGE DIAGNOSIS: 1. Brain metastases. 2. Cord compression, T5 level. 3. Lower extremity weakness. 4. Stage IV carcinoma of the colon. 5. Dyslipidemia. 6. Hypertension. 7. History of deep vein thromboses and pulmonary emboli. MEDICATION: 1. Protonix 40 mg b.i.d. 2. MiraLAX 17 grams daily. 3. Motrin 600 q.8. 4. Norvasc 2.5 daily. 5. Senna p.r.n. 6. Tylenol 650 p.r.n. 7. Lisinopril 10 mg daily. 8. Dexamethasone taper; I would say do 60 mg for a week, then 50 mg for a week, then 40 mg a week, 30 mg per week, 20 mg for a week and then 10 mg; stay on that. 9. Compazine 10 mg q.6. 10.Pravastatin 80 mg daily. 11.[place] 10 one t.i.d. 12.Desyrel 100 mg at night. 13.Zofran 8 mg q.8 p.r.n. for nausea. 14.Xarelto 20 mg daily. Diet as tolerated. Prognosis poor. The patient has little function of his legs. He can move his leg about 5% on the left. Right leg does not move at all. He is going to need long-term care. He just finished radiation treatment for a T5 metastatic colon cancer lesion compressing his spinal cord. It did not really work so far. He is unable to move his leg still. Possible [facility], [facility] or [facility]. He may be needing a referral down there. Possibly outpatient chemo for recurrent colon cancer, but he will need to see some radiation oncology cancer doctor, maybe down in the city if he is down there on rehab. Otherwise stable with pain medicines and nutrition any decubitus ulcers. Prognosis guarded. Follow up as tolerated. MMODL / IJN: [id number] /
[2021-12-09] MEDS: RIVAROXABAN 20 MG TAB PO SCH (14:34)
== END 2021-12-09 15:52 | DRG 552 ==
LOC: EC 09:35 → 5NMEDONC 14:04
PROVIDERS: ADMIT Family Medicine; ATTEND Family Medicine
PROC: DP0C1ZZ Beam Radiation of Other Bone using Photons 1 - 10 MeV (ICD-10-PCS; principal; 2021-11-29)
DX: M48.04 Spinal stenosis, thoracic region (principal); G95.29 Other cord compression; C79.31 Secondary malignant neoplasm of brain; C78.00 Secondary malignant neoplasm of unspecified lung; C78.7 Secondary malignant neoplasm of liver and intrahepatic bile duct; C79.51 Secondary malignant neoplasm of bone; M48.54XA Collapsed vertebra, not elsewhere classified, thoracic region, initial encounter for fracture; G82.20 Paraplegia, unspecified; M25.511 Pain in right shoulder; W01.0XXA Fall on same level from slipping, tripping and stumbling without subsequent striking against object, initial encounter; C61 Malignant neoplasm of prostate; E78.5 Hyperlipidemia, unspecified; E86.0 Dehydration; F32.A Depression, unspecified; G47.00 Insomnia, unspecified; G89.29 Other chronic pain; I10 Essential (primary) hypertension; Z20.822 Contact with and (suspected) exposure to COVID-19; I27.20 Pulmonary hypertension, unspecified; J44.9 Chronic obstructive pulmonary disease, unspecified; K59.09 Other constipation; R13.10 Dysphagia, unspecified; Z53.9 Procedure and treatment not carried out, unspecified reason; Z79.01 Long term (current) use of anticoagulants; Z79.899 Other long term (current) drug therapy; Z80.0 Family history of malignant neoplasm of digestive organs; Z85.038 Personal history of other malignant neoplasm of large intestine; Z86.711 Personal history of pulmonary embolism; Z86.718 Personal history of other venous thrombosis and embolism; Z86.73 Personal history of transient ischemic attack (TIA), and cerebral infarction without residual deficits; Z87.891 Personal history of nicotine dependence; Z92.3 Personal history of irradiation; Z90.49 Acquired absence of other specified parts of digestive tract
CPT/HCPCS: 36415; 70553; 71260; 72070; 72128; 72132; 72157; 72158; 74177; 77280; 77290; 77295; 77300; 77307; 77332; 77334; 77336; 77386; 77387; 77412; 80048; 80053; 81001; 82565; 84520; 85025; 85027; 85610; 85730; 86850; 86900; 86901; 87635; 93306; 96372; 99285

== ENCOUNTER 2021-12-09 18:05 | Observation (INO) | payer MEDICARE ==
--- NOTE | 2021-12-09 18:21 | ED ---
General Adult HPI - General Stated complaint: needs placement-revisit Time Seen by Provider: 12/09/21 18:09 Source: patient, EMS, RN notes reviewed Mode of arrival: EMS Limitations: no limitations - History of Present Illness Initial comments: Patient is a pleasant 61-year-old male returning to the emergency department following a failed discharge. Patient reportedly was discharged from the floor earlier today with plans to transfer to a rehab facility in [facility]. EMS arrived there and facility was unaware the patient and unwilling to accept him. They did try contacting other facilities however unable to find a facility that was aware of this patient. Patient states he was recently in the hospital for recurrent colon cancer with metastasis and spread to the spine. Patient is no longer able to walk. Patient states just a couple weeks ago he was walking okay. Patient states symptoms have somewhat improved with Decadron. No acute changes in the past day. - Related Data Home Medications Medication Instructions Recorded Confirmed Ondansetron [Zofran] 8 mg PO Q8H PRN 11/25/21 12/09/21 Pravastatin Sodium [Pravachol] 80 mg PO DAILY 11/25/21 12/09/21 Prochlorperazine [Compazine] 10 mg PO Q6H PRN 11/25/21 12/09/21 Rivaroxaban [Xarelto] 20 mg PO DAILY@1400 11/25/21 12/09/21 dexAMETHasone See Taper PO DIRECTED 11/25/21 12/09/21 traZODone HCL [Desyrel] 100 mg PO HS 11/25/21 12/09/21 Sennosides-Docusate Sodium 2 tab PO BID 12/09/21 12/09/21 [Senokot-S] Previous Rx's Medication Instructions Recorded Acetaminophen Tab [Tylenol] 650 mg PO Q6HR PRN tab 12/09/21 HYDROcodone/APAP 10-325MG [[place] 1 tab PO TID PRN #9 tab 12/09/21 10-325] Ibuprofen [Motrin] 600 mg PO Q8H PRN tab 12/09/21 Pantoprazole Sodium [Protonix] 40 mg PO BID #60 tab 12/09/21 Pantoprazole [Protonix] 40 mg PO AC-BID tab 12/09/21 amLODIPine [Norvasc] 2.5 mg PO DAILY tab 12/09/21 lisinopriL [Zestril] 10 mg PO DAILY tab 12/09/21 polyethylene glycoL 3350 [Miralax] 17 gm PO DAILY PRN packet 12/09/21 Allergies Allergy/AdvReac Type Severity Reaction Status Date / Time No Known Allergies Allergy Verified 11/28/21 08:54 Review of Systems ROS Statement: Those systems with pertinent positive or pertinent negative responses have been documented in the HPI. ROS Other: All systems not noted in ROS Statement are negative. Constitutional: Denies: fever Eyes: Denies: eye pain ENT: Denies: ear pain Respiratory: Denies: cough Cardiovascular: Denies: chest pain Endocrine: Denies: fatigue Gastrointestinal: Denies: abdominal pain Genitourinary: Denies: urgency Musculoskeletal: Reports: as per HPI Skin: Denies: rash Neurological: Reports: as per HPI, weakness Past Medical History Past Medical History: Cancer, CVA/TIA, Hyperlipidemia, Hypertension, Prostate Disorder Additional Past Medical History / Comment(s): colon cancer - metastatic disease to brain, lungs and spine. History of prostate cancer. History of Any Multi-Drug Resistant Organisms: None Reported Past Surgical History: Bowel Resection Additional Past Surgical History / Comment(s): colon surgery, brain surgery Past Anesthesia/Blood Transfusion Reactions: Postoperative Nausea & Vomiting (PONV) Additional Past Anesthesia/Blood Transfusion Reaction / Comment(s): Slow to wake Past Psychological History: No Psychological Hx Reported Smoking Status: Never smoker Past Alcohol Use History: None Reported Past Drug Use History: None Reported - Past Family History Father Family Medical History: Cancer Additional Family Medical History / Comment(s): Pancreatic cancer. Mother Additional Family Medical History / Comment(s): Mother was a heavy smokier and had breathing problems. General Exam Limitations: no limitations General appearance: alert, in no apparent distress Head exam: Present: normocephalic Eye exam: Present: normal appearance Neck exam: Present: normal inspection Respiratory exam: Present: normal lung sounds bilaterally Cardiovascular Exam: Present: regular rate, normal rhythm GI/Abdominal exam: Present: soft. Absent: tenderness Extremities exam: Present: normal inspection Neurological exam: Present: alert, oriented X3, CN II-XII intact Expanded Motor strength exam: RUE: 5, LUE: 5, RLE: 0, LLE: 2/1 Eye Response: (4) open spontaneously Motor Response: (6) obeys commands Verbal Response: (5) oriented Psychiatric exam: Present: normal affect, normal mood Skin exam: Present: normal color Course Vital Signs 12/09/21 18:11 Temperature 97.8 F Pulse Rate 76 Respiratory 18 Rate Blood Pressure 121/78 O2 Sat by Pulse 98 Oximetry Medical Decision Making - Medical Decision Making Patient updated on plan. Case was discussed with Dr. Rajput who will keep this patient and figure out disposition tomorrow Disposition Clinical Impression: Cord compression Disposition: ADMITTED IP TO THIS HOSP Is patient prescribed a controlled substance at d/c from ED?: No Referrals: Jair Moore MD [Primary Care Provider] - 1-2 days Time of Disposition: 18:49
[2021-12-09] MEDS ORDERED: traMADol 50 MG TAB PO PRN (18:49)
[2021-12-09] MEDS ORDERED: NALOXONE 0.4 MG/ML 1 ML VIAL IV PRN (18:49)
[2021-12-09] MEDS ORDERED: ACETAMINOPHEN TAB 325 MG TAB PO PRN (18:49)
[2021-12-09] MEDS ORDERED: HYDROmorphone 0.5 MG/0.5 ML SYRINGE IVP PRN (18:49)
[2021-12-09] MEDS ORDERED: MORPHINE SULFATE 4 MG/ML SYRINGE IV PRN (18:49)
[2021-12-09] MEDS: DEXAMETHASONE SOD PHOSPHATE 4 MG/ML 1 ML VIAL IVP SCH (20:11)
[2021-12-09] MEDS: FAMOTIDINE 20 MG TAB PO SCH (20:11)
[2021-12-10] MEDS: DEXAMETHASONE SOD PHOSPHATE 4 MG/ML 1 ML VIAL IVP SCH ×4 (00:51→17:38)
[2021-12-10] MEDS: FAMOTIDINE 20 MG TAB PO SCH ×2 (09:46→20:06)
[2021-12-10] MEDS ORDERED: PANTOPRAZOLE 40 MG TABLET PO SCH (17:30)
[2021-12-10] MEDS ORDERED: HYDROcodone/APAP 10-325MG 1 EACH TAB PO PRN (17:59)
[2021-12-10] MEDS ORDERED: IBUPROFEN 600 MG TAB PO PRN (17:59)
[2021-12-10] MEDS ORDERED: ACETAMINOPHEN TAB 325 MG TAB PO PRN (17:59)
[2021-12-10] MEDS ORDERED: polyethylene glycoL 3350 17 GM POWD.PACK PO PRN (17:59)
[2021-12-10] MEDS ORDERED: ONDANSETRON 4 MG TAB PO PRN (17:59)
--- NOTE | 2021-12-10 18:40 | P.CNPUL ---
History of Present Illness Consult date: 12/10/21 Reason for consult: dyspnea, lung mass, abnormal CXR/CT Chief complaint: Lower extremity weakness History of present illness: Patient is a well-known 61-year-old male with metastatic colon cancer to the lungs and brain and spine, patient has large spinal mass causing flaccid paralysis of both lower extremitY. Patient was in fact in the hospital was placed in extended care facility and rehabilitation was declined the back to the hospital and placement and other risks reviewed are being considered. Reason for consult was large left lung mass with protrusion into pulmonary circulation off note that mass is unresectable. Due to high risk of developing pulmonary embolism in situ patient has been on direct oral anticoagulant patient was evaluated for spine surgery but considered to be high risk by anesthesia even though cleared by cardiovascular services. Review of Systems All systems: negative Past Medical History Past Medical History: Cancer, CVA/TIA, Hyperlipidemia, Hypertension, Prostate Disorder Additional Past Medical History / Comment(s): colon cancer - metastatic disease to brain, lungs and spine. History of prostate cancer. History of Any Multi-Drug Resistant Organisms: None Reported Past Surgical History: Bowel Resection Additional Past Surgical History / Comment(s): colon surgery, brain surgery Past Anesthesia/Blood Transfusion Reactions: Postoperative Nausea & Vomiting (PONV) Additional Past Anesthesia/Blood Transfusion Reaction / Comment(s): Slow to wake Past Psychological History: No Psychological Hx Reported Smoking Status: Never smoker Past Alcohol Use History: None Reported Past Drug Use History: None Reported - Past Family History Father Family Medical History: Cancer Additional Family Medical History / Comment(s): Pancreatic cancer. Mother Additional Family Medical History / Comment(s): Mother was a heavy smokier and had breathing problems. Medications and Allergies Home Medications Medication Instructions Recorded Confirmed Type Ondansetron [Zofran] 8 mg PO Q8H PRN 11/25/21 12/09/21 History Pravastatin Sodium [Pravachol] 80 mg PO DAILY 11/25/21 12/09/21 History Prochlorperazine [Compazine] 10 mg PO Q6H PRN 11/25/21 12/09/21 History Rivaroxaban [Xarelto] 20 mg PO DAILY@1400 11/25/21 12/09/21 History dexAMETHasone See Taper PO DIRECTED 11/25/21 12/09/21 History traZODone HCL [Desyrel] 100 mg PO HS 11/25/21 12/09/21 History Acetaminophen Tab [Tylenol] 650 mg PO Q6HR PRN tab 12/09/21 12/09/21 Rx HYDROcodone/APAP 10-325MG [[place] 1 tab PO TID PRN #9 tab 12/09/21 12/09/21 Rx 10-325] Ibuprofen [Motrin] 600 mg PO Q8H PRN tab 12/09/21 12/09/21 Rx Pantoprazole Sodium [Protonix] 40 mg PO BID #60 tab 12/09/21 12/09/21 Rx Pantoprazole [Protonix] 40 mg PO AC-BID tab 12/09/21 12/09/21 Rx Sennosides-Docusate Sodium 2 tab PO BID 12/09/21 12/09/21 History [Senokot-S] amLODIPine [Norvasc] 2.5 mg PO DAILY tab 12/09/21 12/09/21 Rx lisinopriL [Zestril] 10 mg PO DAILY tab 12/09/21 12/09/21 Rx polyethylene glycoL 3350 [Miralax] 17 gm PO DAILY PRN packet 12/09/21 12/09/21 Rx Allergies Allergy/AdvReac Type Severity Reaction Status Date / Time No Known Allergies Allergy Verified 11/28/21 08:54 Physical Exam Vitals: Vital Signs Temp Pulse Resp BP Pulse Ox 12/10/21 11:13 98.2 F 85 16 118/76 97 12/10/21 04:09 97.6 F 75 16 115/76 97 12/09/21 20:00 98 F 72 16 123/78 97 Intake and Output 12/10/21 12/10/21 12/10/21 06:59 14:59 22:59 Intake Total 240 Output Total 500 1200 Balance -260 -1200 Intake: Oral 240 Output: Urine 500 1200 - Constitutional General appearance: average body habitus, cooperative, disheveled - EENT Eyes: EOMI, PERRLA ENT: normal oropharynx Ears: bilateral: normal - Neck Carotids: bilateral: upstroke normal Thyroid: bilateral: normal size - Respiratory Respiratory: bilateral: CTA - Cardiovascular Rhythm: regular Heart sounds: normal: S1, S2 - Gastrointestinal General gastrointestinal: soft - Integumentary Integumentary: normal turgor - Neurologic Neurologic: CNII-XII intact - Musculoskeletal Musculoskeletal: generalized weakness - Psychiatric Psychiatric: A&O x's 3, appropriate affect, intact judgment & insight Assessment and Plan Assessment: Large left-sided metastatic lung mass with invasion into pulmonary circulation, masses an operable 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
--- NOTE | 2021-12-10 19:27 | HP ---
HISTORY AND PHYSICAL This 61-year-old -[place] male was discharged from the yesterday, transferred to [facility] rehab facility. They turned him away and he was sent directly back to the hospital. He has recurrent colon cancer with metastases to the T5 level compressing the spinal cord. He has spinal cord compression, unable to move his lower legs; maybe one or two inches on his left leg. He cannot move at all his right leg. Decadron had minimal improvement as well as radiation x10 days. Home medicines: See list. Fourteen-point review of systems negative except for mentioned above. ALLERGIES NEGATIVE. Past medical history as mentioned above. Family history: Father with pancreatic cancer. Vital signs stable. Afebrile. Cardiovascular S1, S2. Lungs clear. GI soft. Hematology negative Homans. Psych fair mood and affect. Neurologic alert and oriented x3. Ophthalmologic: Pupils equal, round and reactive. Temperature 97.8, pulse 78, respiratory rate 16 to 18, blood pressure 121/78. ASSESSMENT: 1. Significant cord compression with metastatic colon cancer. 2. Generalized debility. 3. Leg weakness; pretty much paralyzed on bilateral legs with minimal improvement. Done with radiation of the thoracic cage. Prognosis guarded. Follow up as an outpatient. Will send him to another detention when appropriate. Resume his home medications. MMODL / IJN: [id number] /
[2021-12-10] MEDS: SENNOSIDES-DOCUSATE SODIUM 1 EACH TAB PO SCH (20:06)
[2021-12-10] MEDS ORDERED: traZODone HCL 100 MG TAB PO SCH (21:00)
[2021-12-11] MEDS: DEXAMETHASONE SOD PHOSPHATE 4 MG/ML 1 ML VIAL IVP SCH ×3 (00:11→12:50)
[2021-12-11] MEDS ORDERED: PANTOPRAZOLE 40 MG TABLET PO SCH (07:30)
[2021-12-11] MEDS: FAMOTIDINE 20 MG TAB PO SCH (08:52)
[2021-12-11] MEDS: SENNOSIDES-DOCUSATE SODIUM 1 EACH TAB PO SCH (08:52)
[2021-12-11] MEDS ORDERED: amLODIPine 2.5 MG TAB PO SCH (09:00)
[2021-12-11] MEDS ORDERED: PRAVASTATIN SODIUM 80 MG TAB PO SCH (09:00)
[2021-12-11] MEDS ORDERED: lisinopriL 10 MG TAB PO SCH (09:00)
[2021-12-11 11:41] VITALS: BP 100/66; PULSE 82; RESP 18; TEMP 98
[2021-12-11] MEDS ORDERED: RIVAROXABAN 20 MG TAB PO SCH (14:00)
--- NOTE | 2021-12-11 14:36 | P.PN ---
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 Patient was in fact in the hospital was placed in extended care facility and rehabilitation was declined the back to the hospital and placement and other risks reviewed are being considered. Reason for consult was large left lung mass with protrusion into pulmonary circulation off note that mass is unresectable. Due to high risk of developing pulmonary embolism in situ patient has been on direct oral anticoagulant patient was evaluated for spine surgery but considered to be high risk by anesthesia even though cleared by cardiovascular services. Objective - Vital Signs Vital signs: Vital Signs Temp 98 F 12/11/21 11:40 Pulse 82 12/11/21 11:40 Resp 18 12/11/21 11:40 BP 100/66 12/11/21 11:40 Pulse Ox 96 12/11/21 11:40 Intake & Output 12/10/21 12/11/21 12/11/21 18:59 06:59 18:59 Intake Total 830 Output Total 1500 600 Balance -1500 230 Intake: Oral 830 Output: Urine 1500 600 Other: Voiding Method Urinal Diaper - Exam - Constitutional General appearance: average body habitus, cooperative, disheveled - EENT Eyes: EOMI, PERRLA ENT: normal oropharynx Ears: bilateral: normal - Neck Carotids: bilateral: upstroke normal Thyroid: bilateral: normal size - Respiratory Respiratory: bilateral: CTA - Cardiovascular Rhythm: regular Heart sounds: normal: S1, S2 - Gastrointestinal General gastrointestinal: soft - Integumentary Integumentary: normal turgor - Neurologic Neurologic: CNII-XII intact - Musculoskeletal Musculoskeletal: generalized weakness - Psychiatric Psychiatric: A&O x's 3, appropriate affect, intact judgment & insight Assessment and Plan Assessment: Large left-sided metastatic lung mass with invasion into pulmonary circulation, masses an operable 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
--- NOTE | 2021-12-11 20:13 | DS ---
DISCHARGE SUMMARY This is a 61-year-old -[place] male. DISCHARGE DIAGNOSIS: 1. Cord compression, T5 level, due to metastatic colon cancer with brain metastases. 2. Metastatic colon cancer, stage IV. 3. Hypertension. 4. Dyslipidemia. 5. History of deep vein thrombosis, pulmonary emboli. HOME MEDICINES: 1. Protonix 40 mg b.i.d. 2. Motrin 600 q.8. 3. MiraLAX 17 grams daily. 4. Norvasc 2.5 daily. 5. Senna p.r.n. 6. Tylenol p.r.n. 7. Lisinopril 10 mg daily. 8. Dexamethasone taper 60 mg for a week; 50 for a week; 40 for a week; then 30 for a week; then 20 for a week; then 10 for a week, and stay on that. 9. Compazine 10 q.6 for nausea. 10.Pravastatin 80 mg daily for cholesterol. 11.Inez 10 one t.i.d. p.r.n. for metastatic cancer pain. 12.Desyrel 100 mg at night. 13.Zofran 8 mg q.8 p.r.n. for nausea. 14.Xarelto 20 mg daily. Diet as tolerated. Prognosis is poor. The patient was admitted with little function of his legs. He can move about 5% of movement in left leg, no movement at all of right leg. After T5 radiation treatment for metastatic cord compression due to metastatic colon cancer, he is about a week status post radiation treatment, which he finished. He said it did not really work. IV steroids did not really work. He is unable to move his leg at all. He will need to see a cancer doctor [place] in the city for radiation oncology, maybe down to [facility] as soon as possible from the rehab center that he goes to. Continue on current medicines. Prognosis extremely poor. MMODL / IJN: [id number] /
--- NOTE | 2021-12-11 20:13 | DS ---
DISCHARGE SUMMARY ADDENDUM: Please add Xarelto 20 mg daily for discharge, amlodipine 2.5 mg daily, Zestril 10 mg daily, pravastatin 80 mg daily, Cascade 10/325 t.i.d., Desyrel 100 mg at night, Protonix 40 b.i.d. for his stomach. Make sure these are in the discharge summary. MMODL / IJN: [id number] /
== END 2021-12-11 18:15 ==
LOC: EC 18:05 → 5NMEDONC 18:49
PROVIDERS: ADMIT Family Medicine; ATTEND Family Medicine
DX: G95.29 Other cord compression (principal); C79.51 Secondary malignant neoplasm of bone; G82.20 Paraplegia, unspecified; C18.9 Malignant neoplasm of colon, unspecified; C78.00 Secondary malignant neoplasm of unspecified lung; C79.31 Secondary malignant neoplasm of brain; Z75.1 Person awaiting admission to adequate facility elsewhere; I10 Essential (primary) hypertension; E78.5 Hyperlipidemia, unspecified; R53.81 Other malaise; R53.1 Weakness; J44.9 Chronic obstructive pulmonary disease, unspecified; Z79.01 Long term (current) use of anticoagulants; Z79.52 Long term (current) use of systemic steroids; Z79.899 Other long term (current) drug therapy; Z86.711 Personal history of pulmonary embolism; Z92.3 Personal history of irradiation; Z86.718 Personal history of other venous thrombosis and embolism; Z85.46 Personal history of malignant neoplasm of prostate; Z86.73 Personal history of transient ischemic attack (TIA), and cerebral infarction without residual deficits; Z90.49 Acquired absence of other specified parts of digestive tract; Z98.890 Other specified postprocedural states; Z80.0 Family history of malignant neoplasm of digestive organs; Z81.2 Family history of tobacco abuse and dependence
CPT/HCPCS: 96376 ×2; 96374; 96375; 99284; G0378 ×3; J2270; J1100 ×3